=== PATIENT | male | born 1940 | race Caucasian/White ===

== ENCOUNTER 2017-08-30 23:40 | Emergency (ER) | payer OTHER ==
[~2017-08-30] VITALS: Ht 175.3 cm; Wt 71.3 kg
[2017-08-30 23:55] VITALS: BP 136/86; PULSE 65; RESP 16; TEMP 98; O2SAT 99
[2017-08-30 23:57] VITALS: O2SAT 98
[2017-08-31] MEDS ORDERED: SODIUM CHLORIDE 0.9% FLUSH 10 ML FLUSH IV FLUSH PRN
[2017-08-31] MEDS ORDERED: SODIUM CHLORID 0.9% 500 ML INJ 500 ML IV ONE
[2017-08-31] MEDS ORDERED: METO25TA3 PO (00:02)
[2017-08-31] MEDS ORDERED: LISI10TA3 PO (00:02)
[2017-08-31] MEDS ORDERED: CLOP75TA PO (00:02)
[2017-08-31] MEDS ORDERED: ATOR40TA16 PO (00:02)
[2017-08-31] MEDS ORDERED: PRAD150C PO (00:02)
[2017-08-31] MEDS ORDERED: FAMO20TA2 PO (00:02)
[2017-08-31] MEDS ORDERED: ASPI81CH6 CHEW (00:02)
[2017-08-31 00:16] LABS: AUTOMATED NEUTROPHIL # 5.9 TH/MM3 (1.8-7.7); BASOPHIL # 0.1 TH/MM3 (0-0.2); BASOPHIL % 1.1 % (0.0-2.0); EOSINOPHIL # 0.2 TH/MM3 (0-0.4); EOSINOPHIL % 2.7 % (0.0-4.0); HEMATOCRIT 37.6 % (39.0-51.0); HEMO FLAGS DIFF FINAL; LYMPH % 14.3 % (9.0-44.0); LYMPHOCYTE # 1.2 TH/MM3 (1.0-4.8); MEAN CELL VOLUME 96.2 FL (80.0-100.0); MEAN CORPUSCULAR HEMOGLOBIN 32.6 PG (27.0-34.0); MEAN CORPUSCULAR HGB CONC 33.9 % (32.0-36.0); MONO % 9.3 % (0.0-8.0); NEUT % 72.6 % (16.0-70.0); PLATELET COUNT 175 TH/MM3 (150-450); RED BLOOD COUNT 3.91 MIL/MM3 (4.50-5.90); RED CELL DISTRIBUTION WIDTH 14.3 % (11.6-17.2); WHITE BLOOD COUNT 8.1 TH/MM3 (4.0-11.0)
[2017-08-31 00:40] LABS: ALT (GPT) 45 U/L (12-78); ANION GAP 11 MEQ/L (5-15); AST (GOT) 37 U/L (15-37); BICARBONATE 23.4 MEQ/L (21.0-32.0); BLOOD UREA NITROGEN 22 MG/DL (7-18); CHLORIDE 109 MEQ/L (98-107); GLOMERULAR FILTRATION RATE 36 ML/MIN (>89); POTASSIUM 3.8 MEQ/L (3.5-5.1); SODIUM (NA) 143 MEQ/L (136-145)
[2017-08-31 00:42] LABS: ALKALINE PHOSPHATASE 130 U/L (45-117)
[2017-08-31 00:45] LABS: APTT (PATIENT) 30.3 SEC (24.3-30.1); PROTHROMBIN TIME - PATIENT 11.1 SEC (9.8-11.6)
[2017-08-31 00:46] LABS: TOTAL BILIRUBIN ADULT 0.3 MG/DL (0.2-1.0)
--- NOTE | 2017-08-31 01:26 | RADRPT ---
EXAM DATE/TIME: 08/31/2017 01:07 [place] COMPARISON: No previous studies available for comparison. INDICATIONS : Bilateral lower abdominal pain. ORAL CONTRAST: No oral contrast ingested. RADIATION DOSE: 6.22 CTDIvol (mGy) MEDICAL HISTORY : Carcinoma, prostate. Renal insufficiency. Cardiovascular disease SURGICAL HISTORY : Abdominal aortic aneurysm repair. Pacemaker. ENCOUNTER: Initial ACUITY: 1 day PAIN SCALE: 7/10 LOCATION: Bilateral lower quadrant abdomen TECHNIQUE: Volumetric scanning of the abdomen and pelvis was performed. Using automated exposure control and ad justment of the mA and/or kV according to patient size, radiation dose was kept as low as reasonably achievable to obtain optimal diagnostic quality images. DICOM format image data is available electro nically for review and comparison. FINDINGS: LOWER LUNGS: The visualized lower lungs are clear. LIVER: Homogeneous density without lesion. There is no dilation of the biliary tree. No calcified gallston es. The gallbladder is small and contracted. SPLEEN: Normal size without lesion. PANCREAS: Within normal limits. KIDNEYS: The left kidney is normal in size with cortical atrophy involving the lower pole. The right kidney is small and atrophic in appearance. ADRENAL GLANDS: Within normal limits. VASCULAR: Status post abdominal aortic aneurysm repair with stent graft in place. No IV contrast was given limi ting the visualization. BOWEL/MESENTERY: No oral contrast was given limiting the sensitivity of the exam. There is a nonobstructive bowel gas pattern with no free air or fluid. ABDOMINAL WALL: Within normal limits. RETROPERITONEUM: There is no lymphadenopathy. BLADDER: No wall thickening or mass. REPRODUCTIVE: Within normal limits. INGUINAL: There is no lymphadenopathy or hernia. MUSCULOSKELETAL: Within normal limits for patient age. CONCLUSION: 1. Nonobstructive bowel gas pattern. Visualization is suboptimal secondary to lack of oral contrast. 2. Small atrophic right kidney. 3. Cortical atrophy involving the lower pole of the left kidney. 4. Status post abdominal aortic aneurysm repair with stent graft in place. 5. The gallbladder is small and contracted with no calcified gallstones. Faheem Crews MD on August 31, 2017 at 1:17 Board Certified Radiologist. This report was verified electronically.
[2017-08-31 01:51] VITALS: BP 144/82; PULSE 73; RESP 16; O2SAT 97
[2017-08-31 03:06] LABS: BLOOD, URINE TRACE (NEG); GLUCOSE,URINE NEG (NEG); HYALINE CAST, URINE 3 /lpf (RARE); KETONE, URINE NEG (NEG); MUCUS URINE FEW /lpf (OCC); NITRITE,URINE NEG (NEG); PH, URINE 5.5 (5.0-8.5); URINE COLOR YELLOW (YELLW/STRAW)
[2017-08-31 03:07] LABS: COMMENT (UR) CULT NOT INDICATED; CULTURE IF INDICATED CULT NOT INDICATED
--- NOTE | 2017-08-31 03:56 | PD ---
HPI Chief Complaint: GI Complaint Time Seen by Provider: 23:55 Travel History International Travel<30 days: No Contact w/Intl Traveler<30days: No Traveled to known affect area: No History of Present Illness HPI Patient is a 77-year-old male comes in complaining of diarrhea. He says he often has diarrhea, for the past several years, however today he has had issues with incontinence. He has been trying to get housing with the [employer], but this has not been working out for him. He missed the bus to the [employer] today. He says he has some lower abdominal pain. He denies nausea or vomiting. He denies fever or chills. He denies any blood in his stool. He denies any recent antibiotics. PFSH Past Medical History Atrial Fibrillation: Yes Cancer: Yes (prostate) High Cholesterol: Yes Chest Pain: Yes (unstable angina) Cerebrovascular Accident: Yes Hypertension: Yes Medical other: Yes (chronic kidney disease) Past Surgical History Pacemaker: Yes Social History Alcohol Use: No Tobacco Use: Yes (1/2 ppd) Substance Use: No Allergies-Medications (Allergen,Severity, Reaction): Coded Allergies: Poultry (Verified Adverse Reaction, Unknown, Cramping, 08/30/17) Fainting egg (Verified Adverse Reaction, Unknown, cramping, 08/30/17) fainting Reported Meds & Prescriptions Reported Meds & Active Scripts Active Reported Atorvastatin (Atorvastatin Calcium) 40 Mg Tab 40 Mg PO HS Aspirin Low Dose (Aspirin) 81 Mg Chew 81 Mg CHEW DAILY Metoprolol Tartrate 25 Mg Tab 25 Mg PO BID Lisinopril 10 Mg Tab 10 Mg PO DAILY Clopidogrel (Clopidogrel Bisulfate) 75 Mg Tab 75 Mg PO DAILY Famotidine 20 Mg Tab 20 Mg PO BID Pradaxa (Dabigatran) 150 Mg Cap 150 Mg PO BID Review of Systems Except as stated in HPI: all other systems reviewed are Neg General / Constitutional: No: Fever, Chills HENT: No: Headaches, Lightheadedness Cardiovascular: No: Chest Pain or Discomfort Respiratory: No: Shortness of Breath Gastrointestinal: Positive: Diarrhea, Abdominal Pain, No: Nausea, Vomiting Genitourinary: No: Dysuria, Flank Pain Musculoskeletal: No: Myalgias, Edema Skin: No Rash, No Change in Pigmentation Neurologic: No: Weakness, Dizziness Physical Exam Narrative GENERAL: Awake and alert, in no acute distress. SKIN: Focused skin assessment warm/dry. HEAD: Atraumatic. Normocephalic. EYES: Pupils equal and round. No scleral icterus. ENT: Mucous membranes pink and moist. NECK: Trachea midline. No JVD. CARDIOVASCULAR: Regular rate and rhythm. No murmur appreciated. RESPIRATORY: No accessory muscle use. Clear to auscultation. Breath sounds equal bilaterally. GASTROINTESTINAL: Abdomen soft, nondistended. Mild tenderness to palpation across the lower abdomen, no rebound or guarding. MUSCULOSKELETAL: No obvious deformities. No clubbing. No cyanosis. No edema. NEUROLOGICAL: Awake and alert. No obvious cranial nerve deficits. Motor grossly within normal limits. Normal speech. PSYCHIATRIC: Appropriate mood and affect; insight and judgment normal. Data Data Last Documented VS Vital Signs Date Time Temp Pulse Resp B/P (MAP) Pulse Ox O2 Delivery O2 Flow Rate FiO2 08/31/17 01:51 73 16 144/82 (102) 97 Room Air 08/30/17 23:55 98.0 Orders Orders Complete Blood Count With Diff (08/30/17 23:55) Comprehensive Metabolic Panel (08/30/17 23:55) Lipase (08/30/17 23:55) Prothrombin Time / Inr (Pt) (08/30/17 23:55) Act Partial Throm Time (Ptt) (08/30/17 23:55) Urinalysis - C+S If Indicated (08/30/17 23:55) Iv Access Insert/Monitor (08/30/17 23:55) Ecg Monitoring (08/30/17 23:55) Oximetry (08/30/17 23:55) Sodium Chloride 0.9% Flush (Ns Flush) (08/31/17 00:00) Sodium Chlorid 0.9% 500 Ml Inj (Ns 500 M (08/31/17 00:00) Ct Abd/Pel W/O Iv Contrast (08/31/17 ) Labs Laboratory Tests Test 08/31/17 00:05 08/31/17 02:48 White Blood Count 8.1 TH/MM3 Red Blood Count 3.91 MIL/MM3 Hemoglobin 12.8 GM/DL Hematocrit 37.6 % Mean Corpuscular Volume 96.2 FL Mean Corpuscular Hemoglobin 32.6 PG Mean Corpuscular Hemoglobin Concent 33.9 % Red Cell Distribution Width 14.3 % Platelet Count 175 TH/MM3 Mean Platelet Volume 9.0 FL Neutrophils (%) (Auto) 72.6 % Lymphocytes (%) (Auto) 14.3 % Monocytes (%) (Auto) 9.3 % Eosinophils (%) (Auto) 2.7 % Basophils (%) (Auto) 1.1 % Neutrophils # (Auto) 5.9 TH/MM3 Lymphocytes # (Auto) 1.2 TH/MM3 Monocytes # (Auto) 0.8 TH/MM3 Eosinophils # (Auto) 0.2 TH/MM3 Basophils # (Auto) 0.1 TH/MM3 CBC Comment DIFF FINAL Differential Comment Prothrombin Time 11.1 SEC Prothromb Time International Ratio 1.0 RATIO Activated Partial Thromboplast Time 30.3 SEC Blood Urea Nitrogen 22 MG/DL Creatinine 1.81 MG/DL Random Glucose 101 MG/DL Total Protein 7.4 GM/DL Albumin 3.9 GM/DL Calcium Level 9.1 MG/DL Alkaline Phosphatase 130 U/L Aspartate Amino Transf (AST/SGOT) 37 U/L Alanine Aminotransferase (ALT/SGPT) 45 U/L Total Bilirubin 0.3 MG/DL Sodium Level 143 MEQ/L Potassium Level 3.8 MEQ/L Chloride Level 109 MEQ/L Carbon Dioxide Level 23.4 MEQ/L Anion Gap 11 MEQ/L Estimat Glomerular Filtration Rate 36 ML/MIN Lipase 231 U/L Urine Color YELLOW Urine Turbidity CLEAR Urine pH 5.5 Urine Specific [place] 1.019 Urine Protein TRACE mg/dL Urine Glucose (UA) NEG mg/dL Urine Ketones NEG mg/dL Urine Occult Blood TRACE Urine Nitrite NEG Urine Bilirubin NEG Urine Urobilinogen LESS THAN 2.0 MG/DL Urine Leukocyte Esterase NEG Urine RBC 13 /hpf Urine WBC 1 /hpf Urine Hyaline Casts 3 /lpf Urine Mucus FEW /lpf Microscopic Urinalysis Comment CULT NOT INDICATED MDM Medical Decision Making Medical Screen Exam Complete: Yes Emergency Medical Condition: Yes Differential Diagnosis Colitis versus diverticulitis versus electrolyte abnormality versus UTI Narrative Course Patient is a 77-year-old male comes in complaining of diarrhea. Exam shows mild lower abdominal tenderness. IV established, labs sent. Labs show an elevated creatinine, however this is consistent with his history of CK ED stage III. CT abdomen and pelvis performed show no acute abnormalities. Patient is sleeping comfortably. He is advised drink plenty of fluids. [facility] Advised to return to the ED as needed for any worsening symptoms. Diagnosis Primary Impression: Diarrhea Qualified Codes: R19.7 - Diarrhea, unspecified Patient Instructions: Acute Diarrhea (ED), General Instructions Additional Instructions: Drink plenty of fluids. [facility] Return to the ED as needed for any worsening symptoms. Disposition: 01 DISCHARGE HOME Condition: Stable Edilia Mercado MD Aug 31, 2017 03:56
== END 2017-08-31 06:57 | disposition home or self-care (01) ==
LOC: NEPE 23:40
DX: R19.7 Diarrhea, unspecified (principal); R32 Unspecified urinary incontinence; I48.91 Unspecified atrial fibrillation; I10 Essential (primary) hypertension; Z72.0 Tobacco use
CPT/HCPCS: 74176; 80053; 81001; 83690; 85025; 85610; 85730; 96360; 99285; J7040

== ENCOUNTER 2017-09-20 10:48 | Emergency (ER) | payer OTHER ==
[~2017-09-20 10:48] MED LIST: ASPI81CH6 CHEW; ATOR40TA16 PO; CLOP75TA PO; FAMO20TA2 PO; LISI10TA3 PO; METO25TA3 PO; PRAD150C PO
[2017-09-20 10:50] VITALS: BP 133/85; PULSE 131; RESP 20; TEMP 97.4; O2SAT 99
[2017-09-20] MEDS ORDERED: PLAV75TA29 PO (11:19)
--- NOTE | 2017-09-20 11:41 | PD ---
HPI Chief Complaint: Syncope/Near-Syncope Time Seen by Provider: 11:15 Travel History International Travel<30 days: No Contact w/Intl Traveler<30days: No Traveled to known affect area: No History of Present Illness HPI 77-year-old male presents to the emergency department with complaint of having an episode of feeling lightheaded and dizzy last night and this morning. He has history of vertigo and usually takes meclizine but he doesn't have his prescription secondary to just getting out of skilled nursing and then keeping his meds. He denies chest pain. Has history of COPD and complains of shortness of breath for many years that is unchanged. Denies fevers, vomiting, abdominal pain. Reports recent cold symptoms to include nasal congestion, patient states he is getting better. Has not taken any medications or tried any treatments to alleviate symptoms. Symptoms are mild in severity. No known relieving or aggravating factors. Cardiac history including pacemaker, A. fib, CVA, AAA, HTN. Medical history to include prostate cancer, vertigo, COPD, hypertension, PTSD, stage 3 kidney disease. His primary care provider is Dr. Chowdhury at the [place] [facility] and has an appointment next . Allergies to poultry and egg. Has no other medical complaints. No other modifying factors or associated signs and symptoms. PFSH Past Medical History Hx Anticoagulant Therapy: Yes Atrial Fibrillation: Yes Cancer: Yes (prostate) Cardiac Catheterization: Yes Cardiovascular Problems: Yes High Cholesterol: Yes Chest Pain: Yes (unstable angina) COPD: Yes Cerebrovascular Accident: Yes Diminished Hearing: No Hypertension: Yes Psychiatric: Yes (PTSD) Tetanus Vaccination: < 5 Years Influenza Vaccination: No Past Surgical History Cardiac Surgery: Yes (PACEMAKER, 3 STENTS) Pacemaker: Yes Prostatectomy: Yes Social History Alcohol Use: No Tobacco Use: Yes (1/2 ppd) Substance Use: No Allergies-Medications (Allergen,Severity, Reaction): Coded Allergies: Poultry (Verified Adverse Reaction, Unknown, Cramping, 08/30/17) Fainting egg (Verified Adverse Reaction, Unknown, cramping, 08/30/17) fainting Reported Meds & Prescriptions Reported Meds & Active Scripts Active Meclizine (Meclizine HCl) 25 Mg Tab 25 Mg PO DIRECTED PRN Reported Plavix (Clopidogrel Bisulfate) 75 Mg Tab 75 Mg PO DAILY Atorvastatin (Atorvastatin Calcium) 40 Mg Tab 40 Mg PO HS Aspirin Low Dose (Aspirin) 81 Mg Chew 81 Mg CHEW DAILY Metoprolol Tartrate 25 Mg Tab 25 Mg PO BID Lisinopril 10 Mg Tab 10 Mg PO DAILY Famotidine 20 Mg Tab 20 Mg PO BID Review of Systems Except as stated in HPI: all other systems reviewed are Neg Physical Exam Narrative GENERAL: Well-nourished, well-developed male patient, in no acute distress SKIN: Warm and dry. HEAD: Atraumatic. Normocephalic. EYES: Pupils equal and round. No scleral icterus. No injection or drainage. ENT: Mucosa pink and moist. Airway patent. NECK: Trachea midline. CARDIOVASCULAR: Regular rate and rhythm in 70's. No murmur appreciated. RESPIRATORY: No accessory muscle use. Breath sounds clear and equal bilaterally. No retractions or tachypnea. No wheezing on auscultation or audible wheezing. GASTROINTESTINAL: Abdomen soft, non-tender, nondistended. Positive bowel sounds. No hepato-splenomegaly, or palpable masses. No guarding. MUSCULOSKELETAL: No obvious deformities. No clubbing. No cyanosis. No edema. NEUROLOGICAL: Awake and alert. Oriented 3. No obvious cranial nerve deficits. Motor grossly within normal limits. Normal speech. PSYCHIATRIC: Appropriate mood and affect; insight and judgment normal. Data Data Last Documented VS Vital Signs Date Time Temp Pulse Resp B/P (MAP) Pulse Ox O2 Delivery O2 Flow Rate FiO2 09/20/17 11:20 75 16 99 Room Air 09/20/17 10:50 97.4 133/85 (101) Orders Orders Basic Metabolic Panel (Bmp) (09/20/17 11:37) Complete Blood Count With Diff (09/20/17 11:37) Ecg Monitoring (09/20/17 11:37) Iv Access Insert/Monitor (09/20/17 11:37) Oximetry (09/20/17 11:37) Sodium Chloride 0.9% Flush (Ns Flush) (09/20/17 11:45) Meclizine (Antivert) (09/20/17 11:45) Ed Discharge Order (09/20/17 12:40) Labs Laboratory Tests Test 09/20/17 11:40 White Blood Count 8.6 TH/MM3 Red Blood Count 3.91 MIL/MM3 Hemoglobin 12.6 GM/DL Hematocrit 37.6 % Mean Corpuscular Volume 96.2 FL Mean Corpuscular Hemoglobin 32.2 PG Mean Corpuscular Hemoglobin Concent 33.5 % Red Cell Distribution Width 14.2 % Platelet Count 186 TH/MM3 Mean Platelet Volume 9.0 FL Neutrophils (%) (Auto) 79.5 % Lymphocytes (%) (Auto) 11.1 % Monocytes (%) (Auto) 7.1 % Eosinophils (%) (Auto) 1.6 % Basophils (%) (Auto) 0.7 % Neutrophils # (Auto) 6.8 TH/MM3 Lymphocytes # (Auto) 1.0 TH/MM3 Monocytes # (Auto) 0.6 TH/MM3 Eosinophils # (Auto) 0.1 TH/MM3 Basophils # (Auto) 0.1 TH/MM3 CBC Comment DIFF FINAL Differential Comment Blood Urea Nitrogen 16 MG/DL Creatinine 1.53 MG/DL Random Glucose 108 MG/DL Calcium Level 8.6 MG/DL Sodium Level 144 MEQ/L Potassium Level 4.3 MEQ/L Chloride Level 112 MEQ/L Carbon Dioxide Level 24.7 MEQ/L Anion Gap 7 MEQ/L Estimat Glomerular Filtration Rate 44 ML/MIN MDM Medical Decision Making Medical Screen Exam Complete: Yes Emergency Medical Condition: Yes Medical Record Reviewed: Yes Differential Diagnosis Vertigo, electrolyte imbalance, anemia, cardiac arrhythmia Narrative Course 77-year-old male with an episode of lightheadedness and dizziness last night and then this morning. He has history of vertigo typically takes meclizine but does not have the medication secondary to just being released from skilled nursing and then keeping his med. He denies chest pain or shortness of breath. I discussed the patient with my attending physician, Dr. Shoemaker, and she agrees with the plan of care. She'll placed on cardiopulmonary monitor. CBC, BMP, EKG ordered. 1140: EKG with sinus tachycardia with first-degree AV block; no ST elevation or depression; reviewed by Dr. Shoemaker. 1234: CBC unremarkable. Creatinine 1.53, GFR 44, otherwise BMP unremarkable. I discussed discharge with Dr. Shoemaker and she agrees. Meclizine prescribed for home. Instructed patient to follow up with primary care provider. Patient verbalizes understanding and agreement with treatment plan. Patient is medically cleared and stable for discharge. Discussed reasons to return to the emergency department. Patient agrees with treatment plan. The patients vital signs are stable and the patient is stable for outpatient follow- up and treatment. Patient discharged home, stable and in no acute distress. Diagnosis Primary Impression: Vertigo Referrals: Primary Care Physician Patient Instructions: Benign Paroxysmal Positional Vertigo (ED), General Instructions, Vertigo (ED) Additional Instructions: Meclizine as prescribed Avoid aggravating activities Follow-up with primary care provider Return to the emergency department immediately with worsening of symptoms Med/Other Pt SpecificInfo: Prescription(s) given Scripts Meclizine (Meclizine) 25 Mg Tab 25 MG PO DIRECTED Y for VERTIGO, #20 TAB 0 Refills Prov: Marcie Bell 09/20/17 Disposition: 01 DISCHARGE HOME Condition: Stable Marcie Bell Sep 20, 2017 11:41
[2017-09-20] MEDS ORDERED: MECLIZINE HCL 25 MG TAB PO ONE (11:45)
[2017-09-20] MEDS ORDERED: SODIUM CHLORIDE 0.9% FLUSH 10 ML FLUSH IVF PRN (11:45)
[2017-09-20 12:04] LABS: AUTOMATED NEUTROPHIL # 6.8 TH/MM3 (1.8-7.7); BASOPHIL # 0.1 TH/MM3 (0-0.2); BASOPHIL % 0.7 % (0.0-2.0); EOSINOPHIL # 0.1 TH/MM3 (0-0.4); EOSINOPHIL % 1.6 % (0.0-4.0); HEMATOCRIT 37.6 % (39.0-51.0); HEMO FLAGS DIFF FINAL; LYMPH % 11.1 % (9.0-44.0); MEAN CELL VOLUME 96.2 FL (80.0-100.0); MEAN CORPUSCULAR HEMOGLOBIN 32.2 PG (27.0-34.0); MEAN CORPUSCULAR HGB CONC 33.5 % (32.0-36.0); MONO % 7.1 % (0.0-8.0); NEUT % 79.5 % (16.0-70.0); PLATELET COUNT 186 TH/MM3 (150-450); RED BLOOD COUNT 3.91 MIL/MM3 (4.50-5.90); RED CELL DISTRIBUTION WIDTH 14.2 % (11.6-17.2); WHITE BLOOD COUNT 8.6 TH/MM3 (4.0-11.0)
[2017-09-20 12:21] LABS: BICARBONATE 24.7 MEQ/L (21.0-32.0)
[2017-09-20 12:22] LABS: POTASSIUM 4.3 MEQ/L (3.5-5.1)
[2017-09-20] MEDS ORDERED: MECL-62 PO (12:38)
[2017-09-20 12:47] VITALS: BP_SYST 120; BP_SYST 125; BP_DIAS 82; BP_DIAS 86; PULSE 73
--- NOTE | 2017-09-21 09:28 | EKG ---
Date Performed: 09/20/2017 Time Performed: 11:09:54 PTAGE: 77 years EKG: Supraventricular tachycardia ABNORMAL ECG NO PREVIOUS TRACING DOCTOR: Bentley Delaney Interpretating Date/Time 09/21/2017 09:26:21
== END 2017-09-20 12:49 | disposition home or self-care (01) ==
LOC: NEPC 10:48
DX: R42 Dizziness and giddiness (principal); I48.91 Unspecified atrial fibrillation; E78.00 Pure hypercholesterolemia, unspecified; J44.9 Chronic obstructive pulmonary disease, unspecified; I10 Essential (primary) hypertension; Z72.0 Tobacco use; Z79.01 Long term (current) use of anticoagulants
CPT/HCPCS: 80048; 85025; 93005; 99283

== ENCOUNTER 2018-01-16 13:09 | Emergency (ER) | payer OTHER ==
[~2018-01-16] VITALS: Ht 175.3 cm; Wt 70.0 kg
[~2018-01-16 13:09] MED LIST changes: -CLOP75TA PO; +MECL-62 PO; +PLAV75TA29 PO; -PRAD150C PO
[2018-01-16 13:12] VITALS: BP 124/81; PULSE 108; RESP 18; TEMP 98; O2SAT 100
[2018-01-16 13:21] VITALS: O2SAT 97
--- NOTE | 2018-01-16 13:22 | PD ---
HPI Chief Complaint: Dizziness Time Seen by Provider: 13:18 Travel History International Travel<30 days: No Contact w/Intl Traveler<30days: No Traveled to known affect area: No History of Present Illness HPI The patient is a 77-year-old male who presents to the emergency department via EMS for dizziness. The patient states he has a history of chronic dizziness, for the last several months, normally takes meclizine. However, the patient ran out of his meclizine several weeks ago and notes the dizziness has progressed. The patient describes the dizziness as being off balance, no difficulty walking, but worse inserted and all changes such as bending over. He denies any vertigo symptoms of the room spinning, denies any focal deficits. He does have a history of previous CVA and thinks he had medications changed from Eliquis to Plavix. The patient denies any chest pain, shortness of breath, nausea, vomiting, palpitations, or presyncopal symptoms. He denies any acute focal deficits, however, states he is undergoing rehab for right leg difficulties after his previous CVA. However, he states that is not acute. Symptoms are moderate. PFSH Past Medical History Hx Anticoagulant Therapy: Yes Atrial Fibrillation: Yes Cancer: Yes (prostate) Cardiac Catheterization: Yes Cardiovascular Problems: Yes High Cholesterol: Yes Chest Pain: Yes (unstable angina) COPD: Yes Cerebrovascular Accident: Yes Diminished Hearing: No Hypertension: Yes Psychiatric: Yes (PTSD) Past Surgical History Cardiac Surgery: Yes (PACEMAKER, 3 STENTS) Pacemaker: Yes Prostatectomy: Yes Social History Alcohol Use: No Tobacco Use: Yes (1/2 ppd) Substance Use: No Allergies-Medications (Allergen,Severity, Reaction): Coded Allergies: Poultry (Verified Adverse Reaction, Unknown, Cramping, 08/30/17) Fainting egg (Verified Adverse Reaction, Unknown, cramping, 08/30/17) fainting Reported Meds & Prescriptions Reported Meds & Active Scripts Active Meclizine (Meclizine HCl) 25 Mg Tab 25 Mg PO DIRECTED PRN Reported Plavix (Clopidogrel Bisulfate) 75 Mg Tab 75 Mg PO DAILY Atorvastatin (Atorvastatin Calcium) 40 Mg Tab 40 Mg PO HS Aspirin Low Dose (Aspirin) 81 Mg Chew 81 Mg CHEW DAILY Metoprolol Tartrate 25 Mg Tab 25 Mg PO BID Lisinopril 10 Mg Tab 10 Mg PO DAILY Famotidine 20 Mg Tab 20 Mg PO BID Review of Systems Except as stated in HPI: all other systems reviewed are Neg HENT: Positive: Lightheadedness, No: Headaches, Vertigo Cardiovascular: Positive: Irregular Rhythm, Tachycardia, No: Chest Pain or Discomfort, Palpitations, Diaphoresis, Syncope Respiratory: No: Shortness of Breath Gastrointestinal: No: Nausea, Vomiting, Abdominal Pain Neurologic: Positive: Dizziness, No: Focal Abnormalities, Headache, Change in Mentation, Paresthesia, Sensory Disturbance Physical Exam Narrative GENERAL: Awake, alert, pleasant 77-year-old male who appears his stated age and is in no acute respiratory distress. SKIN: Focused skin assessment warm/dry. HEAD: Atraumatic. Normocephalic. EYES: Pupils equal and round. No scleral icterus. No injection or drainage. ENT: No nasal bleeding or discharge. Mucous membranes pink and moist. NECK: Trachea midline. No JVD. CARDIOVASCULAR: Irregularly irregular, tachycardic with a heart rate of 110. RESPIRATORY: No accessory muscle use. Clear to auscultation. Breath sounds equal bilaterally. GASTROINTESTINAL: Abdomen soft, non-tender, nondistended. No rebound tenderness. Well-healed midline scar. MUSCULOSKELETAL: No obvious deformities. No clubbing. No cyanosis. No edema. NEUROLOGICAL: Awake and alert. No obvious cranial nerve deficits. Motor grossly within normal limits. Normal speech. Nonfocal. PSYCHIATRIC: Appropriate mood and affect; insight and judgment normal. Data Data Last Documented VS Vital Signs Date Time Temp Pulse Resp B/P (MAP) Pulse Ox O2 Delivery O2 Flow Rate FiO2 01/16/18 14:51 76 18 103/59 (74) 100 Room Air 01/16/18 13:12 98.0 Orders Orders Electrocardiogram (01/16/18 13:18) Complete Blood Count With Diff (01/16/18 13:18) Comprehensive Metabolic Panel (01/16/18 13:18) Magnesium (Mg) (01/16/18 13:18) Ckmb (Isoenzyme) Profile (01/16/18 13:18) Troponin I (01/16/18 13:18) Act Partial Throm Time (Ptt) (01/16/18 13:18) Prothrombin Time / Inr (Pt) (01/16/18 13:18) Urinalysis - C+S If Indicated (01/16/18 13:18) Ct Brain W/O Iv Contrast(Rout) (01/16/18 13:18) Ecg Monitoring (01/16/18 13:18) Iv Access Insert/Monitor (01/16/18 13:18) Oximetry (01/16/18 13:18) Meclizine (Antivert) (01/16/18 13:30) Sodium Chloride 0.9% Flush (Ns Flush) (01/16/18 13:30) Orthostatic Vital Signs (01/16/18 13:18) Sodium Chlorid 0.9% 500 Ml Inj (Ns 500 M (01/16/18 13:30) Ed Discharge Order (01/16/18 16:53) Labs Laboratory Tests Test 01/16/18 13:30 White Blood Count 8.7 TH/MM3 Red Blood Count 4.65 MIL/MM3 Hemoglobin 15.0 GM/DL Hematocrit 43.8 % Mean Corpuscular Volume 94.2 FL Mean Corpuscular Hemoglobin 32.2 PG Mean Corpuscular Hemoglobin Concent 34.2 % Red Cell Distribution Width 14.9 % Platelet Count 193 TH/MM3 Mean Platelet Volume 9.1 FL Neutrophils (%) (Auto) 83.5 % Lymphocytes (%) (Auto) 9.0 % Monocytes (%) (Auto) 5.2 % Eosinophils (%) (Auto) 1.5 % Basophils (%) (Auto) 0.8 % Neutrophils # (Auto) 7.3 TH/MM3 Lymphocytes # (Auto) 0.8 TH/MM3 Monocytes # (Auto) 0.5 TH/MM3 Eosinophils # (Auto) 0.1 TH/MM3 Basophils # (Auto) 0.1 TH/MM3 CBC Comment DIFF FINAL Differential Comment Prothrombin Time 10.6 SEC Prothromb Time International Ratio 1.0 RATIO Activated Partial Thromboplast Time 27.3 SEC Blood Urea Nitrogen 27 MG/DL Creatinine 1.77 MG/DL Random Glucose 180 MG/DL Total Protein 7.9 GM/DL Albumin 3.9 GM/DL Calcium Level 9.1 MG/DL Magnesium Level 1.8 MG/DL Alkaline Phosphatase 133 U/L Aspartate Amino Transf (AST/SGOT) 20 U/L Alanine Aminotransferase (ALT/SGPT) 20 U/L Total Bilirubin 0.4 MG/DL Sodium Level 141 MEQ/L Potassium Level 4.1 MEQ/L Chloride Level 110 MEQ/L Carbon Dioxide Level 23.5 MEQ/L Anion Gap 8 MEQ/L Estimat Glomerular Filtration Rate 37 ML/MIN Total Creatine Kinase 70 U/L Troponin I LESS THAN 0.02 NG/ML MDM Medical Decision Making Medical Screen Exam Complete: Yes Emergency Medical Condition: Yes Medical Record Reviewed: Yes Interpretation(s) EKG reveals electronic atrial pacemaker with PVC every fourth beat. Nonspecific T-wave changes. Last Impressions Head CT 01/16/18 1318 Signed Impressions: Service Date/Time: January 13:54 - CONCLUSION: 1. Old lacunar infarct involving the head of the left caudate nucleus. 2. Mild periventricular and subcortical white matter small vessel ischemic changes bilaterally. 3. No acute infarct, acute hemorrhage, midline shift or extra-axial fluid collections. Osvaldo Nina MD Laboratory Tests Test 01/16/18 13:30 White Blood Count 8.7 TH/MM3 Red Blood Count 4.65 MIL/MM3 Hemoglobin 15.0 GM/DL Hematocrit 43.8 % Mean Corpuscular Volume 94.2 FL Mean Corpuscular Hemoglobin 32.2 PG Mean Corpuscular Hemoglobin Concent 34.2 % Red Cell Distribution Width 14.9 % Platelet Count 193 TH/MM3 Mean Platelet Volume 9.1 FL Neutrophils (%) (Auto) 83.5 % Lymphocytes (%) (Auto) 9.0 % Monocytes (%) (Auto) 5.2 % Eosinophils (%) (Auto) 1.5 % Basophils (%) (Auto) 0.8 % Neutrophils # (Auto) 7.3 TH/MM3 Lymphocytes # (Auto) 0.8 TH/MM3 Monocytes # (Auto) 0.5 TH/MM3 Eosinophils # (Auto) 0.1 TH/MM3 Basophils # (Auto) 0.1 TH/MM3 CBC Comment DIFF FINAL Differential Comment Prothrombin Time 10.6 SEC Prothromb Time International Ratio 1.0 RATIO Activated Partial Thromboplast Time 27.3 SEC Blood Urea Nitrogen 27 MG/DL Creatinine 1.77 MG/DL Random Glucose 180 MG/DL Total Protein 7.9 GM/DL Albumin 3.9 GM/DL Calcium Level 9.1 MG/DL Magnesium Level 1.8 MG/DL Alkaline Phosphatase 133 U/L Aspartate Amino Transf (AST/SGOT) 20 U/L Alanine Aminotransferase (ALT/SGPT) 20 U/L Total Bilirubin 0.4 MG/DL Sodium Level 141 MEQ/L Potassium Level 4.1 MEQ/L Chloride Level 110 MEQ/L Carbon Dioxide Level 23.5 MEQ/L Anion Gap 8 MEQ/L Estimat Glomerular Filtration Rate 37 ML/MIN Total Creatine Kinase 70 U/L Troponin I LESS THAN 0.02 NG/ML Differential Diagnosis Differential diagnosis includes A. fib with RVR, vertigo, cerebellar infarct, hyponatremia, arrhythmia, dehydration, orthostatic hypotension, Mnire's disease, metabolic derangement, benign positional vertigo. Narrative Course IV was established, labs are drawn and sent, and the patient was placed on cardiac telemetry monitoring and continuous pulse oximetry monitoring. Orthostatic vital signs were obtained. The patient was placed on IV fluids. Noncontrast CT of the brain was obtained. CT the brain reveals old lacunar infarct, nothing acute. Labs are unremarkable. The patient was reevaluated, symptoms had significantly improved. Patient was given a trial of ambulation, ambulated without difficulty and requested to be discharged home. I will refill his meclizine. He is advised to return if symptoms worsen or progress. Diagnosis Primary Impression: Dizziness Patient Instructions: General Instructions Additional Instructions: Please provide the patient a copy of his labs and CT results at discharge. Follow-up with your primary physician. Return if symptoms worsen or progress. Medication as directed. Med/Other Pt SpecificInfo: Prescription(s) given Scripts Meclizine (Meclizine) 25 Mg Tab 25 MG PO TID Y for VERTIGO, #15 TAB 0 Refills Prov: Arnold Hurtado MD 01/16/18 Disposition: 01 DISCHARGE HOME Condition: Stable Arnold Hurtado MD Jan 16, 2018 13:22
[2018-01-16] MEDS ORDERED: MECLIZINE HCL 25 MG TAB PO ONE (13:30)
[2018-01-16] MEDS ORDERED: SODIUM CHLORIDE 0.9% FLUSH 10 ML FLUSH IVF PRN (13:30)
[2018-01-16] MEDS ORDERED: SODIUM CHLORID 0.9% 500 ML INJ 500 ML IV ONE (13:30)
[2018-01-16 13:55] LABS: AUTOMATED NEUTROPHIL # 7.3 TH/MM3 (1.8-7.7); BASOPHIL # 0.1 TH/MM3 (0-0.2); BASOPHIL % 0.8 % (0.0-2.0); EOSINOPHIL # 0.1 TH/MM3 (0-0.4); EOSINOPHIL % 1.5 % (0.0-4.0); HEMATOCRIT 43.8 % (39.0-51.0); LYMPHOCYTE # 0.8 TH/MM3 (1.0-4.8); MEAN CELL VOLUME 94.2 FL (80.0-100.0); MEAN CORPUSCULAR HEMOGLOBIN 32.2 PG (27.0-34.0); MEAN CORPUSCULAR HGB CONC 34.2 % (32.0-36.0); MEAN PLATELET VOLUME 9.1 FL (7.0-11.0); MONO % 5.2 % (0.0-8.0); MONOCYTE # 0.5 TH/MM3 (0-0.9); NEUT % 83.5 % (16.0-70.0); PLATELET COUNT 193 TH/MM3 (150-450); RED BLOOD COUNT 4.65 MIL/MM3 (4.50-5.90); RED CELL DISTRIBUTION WIDTH 14.9 % (11.6-17.2); WHITE BLOOD COUNT 8.7 TH/MM3 (4.0-11.0)
[2018-01-16 14:06] LABS: PROTHROMBIN TIME - PATIENT 10.6 SEC (9.8-11.6)
[2018-01-16 14:16] LABS: ALBUMIN 3.9 GM/DL (3.4-5.0); ALT (GPT) 20 U/L (12-78); AST (GOT) 20 U/L (15-37); BICARBONATE 23.5 MEQ/L (21.0-32.0); BLOOD UREA NITROGEN 27 MG/DL (7-18); CALCIUM 9.1 MG/DL (8.5-10.1); CHLORIDE 110 MEQ/L (98-107); CREATININE 1.77 MG/DL (0.60-1.30); GLOMERULAR FILTRATION RATE 37 ML/MIN (>89); GLUCOSE,RANDOM 180 MG/DL (74-106); MAGNESIUM 1.8 MG/DL (1.5-2.5); SODIUM (NA) 141 MEQ/L (136-145)
--- NOTE | 2018-01-16 14:19 | RADRPT ---
EXAM DATE/TIME: 01/16/2018 13:54 [facility] COMPARISON: No previous studies available for comparison. INDICATIONS : Dizzy RADIATION DOSE: 39.91 CTDIvol (mGy) MEDICAL HISTORY : Carcinoma, prostate. Cerebrovascular disease. Cardiovascular disease COPD, SURGICAL HISTORY : Pacemaker. Prostatectomy. ENCOUNTER: Initial ACUITY: 1 day PAIN SCALE: 0/10 LOCATION: cranial TECHNIQUE: Multiple contiguous axial images were obtained of the head. Using automated exposure control and adj ustment of the mA and/or kV according to patient size, radiation dose was kept as low as reasonably a chievable to obtain optimal diagnostic quality images. DICOM format image data is available electro nically for review and comparison. FINDINGS: CEREBRUM: The ventricles are normal for age. No evidence of midline shift, mass lesion, hemorrhage or acute in farction. No extra-axial fluid collections are seen. Mild periventricular and subcortical white benson er small vessel ischemic changes are noted bilaterally. There is an old lacunar infarct involving the head of the left caudate nucleus. POSTERIOR FOSSA: The cerebellum and brainstem are intact. The 4th ventricle is midline. The cerebellopontine angle i s unremarkable. EXTRACRANIAL: The visualized portion of the orbits is intact. SKULL: The calvaria is intact. No evidence of skull fracture. CONCLUSION: 1. Old lacunar infarct involving the head of the left caudate nucleus. 2. Mild periventricular and subcortical white matter small vessel ischemic changes bilaterally. 3. No acute infarct, acute hemorrhage, midline shift or extra-axial fluid collections. Osvaldo Nina MD on January 16, 2018 at 14:12 Board Certified Radiologist. This report was verified electronically.
[2018-01-16 14:20] LABS: ALKALINE PHOSPHATASE 133 U/L (45-117); TOTAL BILIRUBIN ADULT 0.4 MG/DL (0.2-1.0); TOTAL PROTEIN 7.9 GM/DL (6.4-8.2); TROPONIN I LESS THAN 0.02 NG/ML (0.02-0.05)
[2018-01-16 14:35] VITALS: BP_SYST 120; BP_SYST 128; BP_SYST 137; BP_DIAS 64; BP_DIAS 77; BP_DIAS 79
[2018-01-16 14:51] VITALS: BP 103/59; PULSE 76; RESP 18; O2SAT 100
[2018-01-16 16:55] VITALS: BP 173/75; PULSE 75; RESP 17; O2SAT 100
[2018-01-16] MEDS ORDERED: MECL-62 PO (16:58)
--- NOTE | 2018-01-18 13:01 | EKG ---
Date Performed: 01/16/2018 Time Performed: 13:28:13 PTAGE: 77 years EKG: Predominant atrial demand pacing Ventricular premature complexes Nonspecific ST-T abnormali ties Pacing is new from prior tracing. ST-T abnormalities are similar. ABNORMAL RHYTHM ECG PREVIOUS TRACING : 09/20/2017 11.09.54 DOCTOR: Rojelio Schilling Interpretating Date/Time 01/18/2018 13:00:55
== END 2018-01-16 17:19 | disposition home or self-care (01) ==
LOC: NEPE 13:09
DX: R42 Dizziness and giddiness (principal); R94.31 Abnormal electrocardiogram [ECG] [EKG]; I10 Essential (primary) hypertension; E78.00 Pure hypercholesterolemia, unspecified; I48.91 Unspecified atrial fibrillation; J44.9 Chronic obstructive pulmonary disease, unspecified; F43.10 Post-traumatic stress disorder, unspecified; F17.210 Nicotine dependence, cigarettes, uncomplicated; Z85.46 Personal history of malignant neoplasm of prostate; Z86.73 Personal history of transient ischemic attack (TIA), and cerebral infarction without residual deficits; Z95.0 Presence of cardiac pacemaker; Z79.02 Long term (current) use of antithrombotics/antiplatelets; Z79.899 Other long term (current) drug therapy
CPT/HCPCS: 70450; 80053; 82550; 83735; 84484; 85025; 85610; 85730; 93005; 96360; 96361; 99285; J7040

== ENCOUNTER 2018-03-28 18:05 | Inpatient (IN) | payer MEDICARE, OTHER ==
[~2018-03-28] VITALS: Ht 175.3 cm; Wt 72.2 kg
[2018-03-28 18:10] VITALS: BP 187/112; PULSE 79; RESP 16; TEMP 97.7; O2SAT 98
[2018-03-28] MEDS ORDERED: SODIUM CHLOR 0.9% 1000 ML INJ 1,000 ML IV ONE (20:15)
[2018-03-28] MEDS ORDERED: MORPHINE SULFATE 4 MG/ML INJ IV PUSH ONE (20:15)
[2018-03-28] MEDS ORDERED: CLAR10CA3 PO (20:18)
[2018-03-28] MEDS ORDERED: LISI-515 PO (20:18)
[2018-03-28] MEDS ORDERED: PANT40TA3 PO (20:18)
--- NOTE | 2018-03-28 20:19 | PD ---
HPI Chief Complaint: GI Complaint Time Seen by Provider: 19:54 Travel History International Travel<30 days: No Contact w/Intl Traveler<30days: No Traveled to known affect area: No History of Present Illness HPI This is a 77-year-old male who presents to the emergency department with abdominal pain that has been going on since this morning, constant, moderate severity, described as a soreness all over his abdomen associated with nausea. Patient has a history of a bowel resection years ago in the setting of "infarcted bowel". He does have a history of atrial fibrillation. He takes Plavix. He denies any postprandial pain. He denies any fevers or chills. He has had black loose stools throughout the day. PFSH Past Medical History Hx Anticoagulant Therapy: Yes Atrial Fibrillation: Yes Cancer: Yes (prostate) Cardiac Catheterization: Yes Cardiovascular Problems: Yes High Cholesterol: Yes Chest Pain: Yes (unstable angina) COPD: Yes Cerebrovascular Accident: Yes Diabetes: No Patient Takes Glucophage: No Diminished Hearing: Yes Hypertension: Yes Psychiatric: Yes (PTSD) Immunizations Current: Yes Tetanus Vaccination: < 5 Years Past Surgical History Cardiac Surgery: Yes (PACEMAKER, 3 STENTS) Pacemaker: Yes Prostatectomy: Yes Social History Alcohol Use: No Tobacco Use: Yes (1 ppd) Substance Use: No Allergies-Medications (Allergen,Severity, Reaction): Coded Allergies: Poultry (Verified Adverse Reaction, Unknown, Cramping, 03/28/18) Fainting egg (Verified Adverse Reaction, Unknown, cramping, 03/28/18) fainting Reported Meds & Prescriptions Reported Meds & Active Scripts Active Meclizine (Meclizine HCl) 25 Mg Tab 25 Mg PO TID PRN Meclizine (Meclizine HCl) 25 Mg Tab 25 Mg PO DIRECTED PRN Reported Pantoprazole (Pantoprazole Sodium) 40 Mg Tab 40 Mg PO DAILY Claritin (Loratadine) 10 Mg Cap 10 Mg PO DAILY Lisinopril 20 Mg Tab 20 Mg PO DAILY Plavix (Clopidogrel Bisulfate) 75 Mg Tab 75 Mg PO DAILY Atorvastatin (Atorvastatin Calcium) 40 Mg Tab 40 Mg PO HS Aspirin Low Dose (Aspirin) 81 Mg Chew 81 Mg CHEW DAILY Metoprolol Tartrate 25 Mg Tab 25 Mg PO BID Lisinopril 10 Mg Tab 10 Mg PO DAILY Famotidine 20 Mg Tab 20 Mg PO BID Review of Systems Except as stated in HPI: all other systems reviewed are Neg Physical Exam Narrative GENERAL:Well appearing, no acute distress SKIN: Focused skin assessment warm and dry. HEAD: Atraumatic. Normocephalic. EYES: Pupils equal and round. No injection or drainage. ENT: Moist mucous membranes NECK: Trachea midline. CARDIOVASCULAR: Regular rate and rhythm. No murmur appreciated. RESPIRATORY: Clear to auscultation. Breath sounds equal bilaterally. GASTROINTESTINAL: Abdomen soft, mildly diffusely tender worse in the lower abdomen with no rebound or guarding. MUSCULOSKELETAL: No obvious deformities. NEUROLOGICAL: Awake and alert. No obvious cranial nerve deficits. Moving all extremities. PSYCHIATRIC: Appropriate mood and affect; insight and judgment normal. Data Data Last Documented VS Vital Signs Date Time Temp Pulse Resp B/P (MAP) Pulse Ox O2 Delivery O2 Flow Rate FiO2 03/28/18 18:10 97.7 79 16 187/112 (137) 98 Orders Orders Complete Blood Count With Diff (03/28/18 19:55) Comprehensive Metabolic Panel (03/28/18 19:55) Lipase (03/28/18 19:55) Lactic Acid (03/28/18 20:03) Cta Abd/Pel W Iv Contrast W 3d (03/28/18 ) Morphine Inj (Morphine Inj) (03/28/18 20:15) Sodium Chlor 0.9% 1000 Ml Inj (Ns 1000 M (03/28/18 20:15) Urinalysis - C+S If Indicated (03/28/18 20:57) Sodium Chlor 0.9% 1000 Ml Inj (Ns 1000 M (03/28/18 21:45) Blood Culture (03/28/18 21:34) Piperacil-Tazo 3.375 Gm Premix (Zosyn 3. (03/28/18 21:45) Iodixanol 320 Inj (Rad Ct) (Visipaque 32 (03/28/18 22:18) Lactic Acid (03/28/18 22:45) Promethazine Inj (Phenergan Inj) (03/28/18 23:00) Electrocardiogram (03/28/18 ) Admit Order (Ed Use Only) (03/28/18 23:17) Labs Laboratory Tests Test 03/28/18 20:32 03/28/18 22:52 White Blood Count 14.0 TH/MM3 Red Blood Count 4.87 MIL/MM3 Hemoglobin 15.3 GM/DL Hematocrit 45.8 % Mean Corpuscular Volume 94.1 FL Mean Corpuscular Hemoglobin 31.5 PG Mean Corpuscular Hemoglobin Concent 33.4 % Red Cell Distribution Width 14.9 % Platelet Count 192 TH/MM3 Mean Platelet Volume 9.2 FL Neutrophils (%) (Auto) 86.8 % Lymphocytes (%) (Auto) 6.3 % Monocytes (%) (Auto) 4.9 % Eosinophils (%) (Auto) 1.4 % Basophils (%) (Auto) 0.6 % Neutrophils # (Auto) 12.1 TH/MM3 Lymphocytes # (Auto) 0.9 TH/MM3 Monocytes # (Auto) 0.7 TH/MM3 Eosinophils # (Auto) 0.2 TH/MM3 Basophils # (Auto) 0.1 TH/MM3 CBC Comment DIFF FINAL Differential Comment Blood Urea Nitrogen 21 MG/DL Creatinine 1.84 MG/DL Random Glucose 138 MG/DL Total Protein 9.2 GM/DL Albumin 4.7 GM/DL Calcium Level 9.4 MG/DL Alkaline Phosphatase 145 U/L Aspartate Amino Transf (AST/SGOT) 28 U/L Alanine Aminotransferase (ALT/SGPT) 26 U/L Total Bilirubin 0.4 MG/DL Sodium Level 139 MEQ/L Potassium Level 4.5 MEQ/L Chloride Level 104 MEQ/L Carbon Dioxide Level 23.9 MEQ/L Anion Gap 11 MEQ/L Estimat Glomerular Filtration Rate 36 ML/MIN Lactic Acid Level 3.2 mmol/L 2.3 mmol/L Lipase 312 U/L Urine Color YELLOW Urine Turbidity HAZY Urine pH 5.0 Urine Specific [place] 1.021 Urine Protein 30 mg/dL Urine Glucose (UA) NEG mg/dL Urine Ketones NEG mg/dL Urine Occult Blood SMALL Urine Nitrite NEG Urine Bilirubin NEG Urine Urobilinogen LESS THAN 2 mg/dL Urine Leukocyte Esterase NEG Urine RBC 7 /hpf Urine WBC 1 /hpf Urine Mucus FEW /lpf Microscopic Urinalysis Comment CULT NOT INDICATED MDM Medical Decision Making Medical Screen Exam Complete: Yes Emergency Medical Condition: Yes Interpretation(s) Afebrile, no tachycardia, hypertensive Leukocytosis 86% neutrophils Renal insufficiency Lactic acid is 3.2 Urinalysis demonstrates some blood Last 24 hours Impressions Abdomen/Pelvis CT 03/28/18 0000 Signed Impressions: CONCLUSION: Findings of small bowel ileus Endograft in place without evidence of rupture with stable sac size Mass in the splenic hilum as above. MRI is recommended for further evaluation i f clinically indicated. Differential Diagnosis Ischemic colitis, gastroenteritis, diarrhea, infectious colitis, appendicitis Narrative Course This is a 77-year-old male who has a history of severe vascular disease who presents to the emergency department with onset of abdominal discomfort that started this morning. He says this feels just like when he had "infarcted bowel " and required a bowel resection. He describes pain as 15 out of 5 and in the emergency department was observed to vomit. He was placed on a monitor and an IV was established and are reassuring. Labs demonstrate a leukocytosis and a lactic acid of 3.2. CTA was obtained which demonstrates patent vasculature however does demonstrate an ileus. Patient was covered with IV Zosyn and cultures were obtained. Given the patient's lactic acid, history and clinical appearance I am still concerned for mesenteric ischemia. I discussed the case with Dr. Vides application assistant for general surgery who recommended the patient be admitted to the ICU. I spoke to Dr. Cheek who came see the patient and agreed to observe the patient until morning. Repeat lactic acid trended downward after IV hydration which is reassuring. Physician Communication Physician Communication Discussed with Dr. Vides and Dr. Cheek Diagnosis Primary Impression: Sepsis Qualified Codes: A41.9 - Sepsis, unspecified organism Admitting Information Admitting Physician Requests: Admit Yenny Baumann MD Mar 28, 2018 20:19
[2018-03-28 21:14] LABS: ALBUMIN 4.7 GM/DL (3.4-5.0); AST (GOT) 28 U/L (15-37); BICARBONATE 23.9 MEQ/L (21.0-32.0); BLOOD UREA NITROGEN 21 MG/DL (7-18); CALCIUM 9.4 MG/DL (8.5-10.1); CHLORIDE 104 MEQ/L (98-107); CREATININE 1.84 MG/DL (0.60-1.30); GLOMERULAR FILTRATION RATE 36 ML/MIN (>89); GLUCOSE,RANDOM 138 MG/DL (74-106); SODIUM (NA) 139 MEQ/L (136-145)
[2018-03-28 21:15] LABS: ALT (GPT) 26 U/L (12-78)
[2018-03-28 21:17] LABS: ALKALINE PHOSPHATASE 145 U/L (45-117); TOTAL BILIRUBIN ADULT 0.4 MG/DL (0.2-1.0); TOTAL PROTEIN 9.2 GM/DL (6.4-8.2)
[2018-03-28 21:34] LABS: AUTOMATED NEUTROPHIL # 12.1 TH/MM3 (1.8-7.7); BASOPHIL # 0.1 TH/MM3 (0-0.2); BASOPHIL % 0.6 % (0.0-2.0); EOSINOPHIL # 0.2 TH/MM3 (0-0.4); EOSINOPHIL % 1.4 % (0.0-4.0); HEMATOCRIT 45.8 % (39.0-51.0); HEMOGLOBIN 15.3 GM/DL (13.0-17.0); LYMPH % 6.3 % (9.0-44.0); LYMPHOCYTE # 0.9 TH/MM3 (1.0-4.8); MEAN CELL VOLUME 94.1 FL (80.0-100.0); MEAN CORPUSCULAR HEMOGLOBIN 31.5 PG (27.0-34.0); MEAN CORPUSCULAR HGB CONC 33.4 % (32.0-36.0); MEAN PLATELET VOLUME 9.2 FL (7.0-11.0); MONO % 4.9 % (0.0-8.0); MONOCYTE # 0.7 TH/MM3 (0-0.9); NEUT % 86.8 % (16.0-70.0); PLATELET COUNT 192 TH/MM3 (150-450); RED BLOOD COUNT 4.87 MIL/MM3 (4.50-5.90); RED CELL DISTRIBUTION WIDTH 14.9 % (11.6-17.2)
[2018-03-28] MEDS ORDERED: PIPERACIL-TAZO 3.375 GM PREMIX 50 ML IV ONE (21:45)
[2018-03-28] MEDS ORDERED: SODIUM CHLOR 0.9% 1000 ML INJ 1,000 ML IV SCH (21:45)
[2018-03-28] MEDS ORDERED: IODIXANOL 320 MG/ML 10 ML VIAL (for Rad CT) IVCONTRAST ONE (22:18)
--- NOTE | 2018-03-28 22:26 | RADRPT ---
EXAM DATE: 03/28/2018 10:14 PM EDT AGE/SEX: 77 years / Male INDICATIONS: Back pain. CLINICAL DATA: This is the patient's initial encounter. Patient reports that signs and symptoms have been present for 1 day and indicates a pain score of 3/10. MEDICAL/SURGICAL HISTORY: Stroke. Cardiovascular disease. Carcinoma, prostatic. Prostatectomy. RADIATION DOSE: 12.51 CTDI (mGy) COMPARISON: No prior exams available for comparison. TECHNIQUE: Volumetric scanning was performed using a multi-row detector CT scanner during bolus infu cooper of 50 ml Visipaque 320 (iodixanol) nonionic water-soluble contrast as a single exam dose. . Th e data was post processed with a variety of visualization algorithms including full volume maximum in tensity projection, multi-planar sliding thin slab reformation, curved planar reformation, and surfac e rendering techniques. Using automated exposure control and adjustment of the mA and/or kV accordin g to patient size, radiation dose was kept as low as reasonably achievable to obtain optimal diagnost ic quality images. DICOM format image data is available electronically for review and comparison. FINDINGS: CT scan of the abdomen was performed in this patient with aortic stent graft in place. Precontrast an d delayed images were not obtained and the presence or absence of endoleak cannot be excluded. The li lilian is normal in size and free of focal defects. The gallbladder and pancreas are unremarkable. No intrahepatic or extrahepatic ductal dilatation is seen. There is a mass in the splenic hilum measurin g 3.8 cm of uncertain etiology. This indents the posterior wall the stomach. MRI is recommended for f urther evaluation if clinically indicated. There is a small atrophic right kidney. The left kidney i s unremarkable. Examination of the abdomen demonstrates gaseous distention of the small bowel with ai r fluid levels most consistent with ileus .There are no findings of small bowel obstruction. No free air is identified. No organomegaly is evident. Examination of the pelvis demonstrates no evidence of free fluid or pelvic mass. No abnormally enlarg ed inguinal or retroperitoneal lymph nodes are present. The bladder is unremarkable. CONCLUSION: Findings of small bowel ileus Endograft in place without evidence of rupture with stable sac size Mass in the splenic hilum as above. MRI is recommended for further evaluation if clinically indicated . Electronically signed by: Ashok Ma MD 03/28/2018 10:25 PM EDT
[2018-03-28] MEDS ORDERED: PROMETHAZINE INJ 25 MG/ML VIAL IM ONE (23:00)
[2018-03-28] MEDS: SODIUM CHLOR 0.9% 1000 ML INJ 1,000 ML IV SCH (23:00)
[2018-03-28 23:22] LABS: BILIRUBIN, URINE NEG (NEG); BLOOD, URINE SMALL (NEG); GLUCOSE,URINE NEG (NEG); KETONE, URINE NEG (NEG); MUCUS URINE FEW /lpf (OCC); NITRITE,URINE NEG (NEG); URINE COLOR YELLOW (YELLW/STRAW); URINE LEUKOCYTE ESTERASE NEG (NEG)
[2018-03-28] MEDS ORDERED: RESP: ALBUTEROL 2.5 MG/IPRATROPIUM 0.5 MG NEB (PRN) INH (23:30)
[2018-03-28] MEDS ORDERED: NURSING INFORMATION XX SCH (23:30)
[2018-03-28] MEDS ORDERED: MAGNESIUM OXIDE 400 MG TAB PO PRN (23:30)
[2018-03-28] MEDS ORDERED: POTASSIUM PHOSPHATE MONOBASIC 500 MG TAB PO/TUBE PRN (23:30)
[2018-03-28] MEDS ORDERED: POTASSIUM CHLOR 20 MEQ PREMIX 100 ML IV PRN ×2 (23:30)
[2018-03-28] MEDS ORDERED: POTASSIUM PHOSPHATE MONOBASIC 500 MG TAB PO PRN (23:30)
[2018-03-28] MEDS ORDERED: MAGNESIUM SULFATE INJ 4 GM in SODIUM CHLORIDE 0.9% INJ 92 ML IV PRN (23:30)
[2018-03-28] MEDS ORDERED: DEXTROSE 50% IN WATER 50 ML VIAL(D50) IV PUSH PRN (23:30)
[2018-03-28] MEDS ORDERED: POTASSIUM CHLORIDE 25 MEQ EFFERVESCENT TAB PO PRN (23:30)
[2018-03-28] MEDS ORDERED: CHLORHEXIDINE GLUCONATE 2 % 1 PACK (2 CLOTHS) TOP PRN (23:30)
[2018-03-28] MEDS ORDERED: ONDANSETRON ODT 4 MG TAB PO PRN (23:30)
[2018-03-28] MEDS ORDERED: POTASSIUM PHOSPHATE INJ 30 MMOL in SODIUM CHLOR 0.9% 250 ML INJ 250 ML IV PRN (23:30)
[2018-03-28] MEDS ORDERED: ACETAMINOPHEN 325 MG TAB PO PRN (23:30)
[2018-03-28] MEDS ORDERED: MAGNESIUM SULFATE INJ 2 GM in SODIUM CHLORIDE 0.9% INJ 96 ML IV PRN (23:30)
[2018-03-28] MEDS ORDERED: SODIUM PHOSPHATE INJ 30 MMOL in SODIUM CHLOR 0.9% 250 ML INJ 240 ML IV PRN (23:30)
[2018-03-28] MEDS ORDERED: POTASSIUM CHLOR 40 MEQ PREMIX 100 ML IV PRN ×2 (23:30)
--- NOTE | 2018-03-28 23:33 | HHI.HP ---
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 associated nausea, diarrhea, black dark stools. denies any other symptoms. no changes to his medical history and in his usual state of health. denies fever, chills. no chest pain, sob. states he used to be on Eliquis, but his doctor took him off this and left him on ASA, Plavix alone. He states he does not know why his doctor did this. denies any history of GI bleeding or recent falling. in the ER, found to have elevated lactate 3.2, Cr 1.8, wbc 14k with neutrophil predominance. CT abd/pelvis demonstrates small bowel ileus without transition point or concern for mechanical obstruction. ROS otherwise negative. patient is hemodynamically stable and received 2L crystalloid ivf in the ER. Review of Systems Constitutional: DENIES: Fatigue, Fever, Chills Ears, nose, mouth, throat: DENIES: Oral lesions, Throat pain Respiratory: DENIES: Cough, Hemoptysis, Sputum production, Shortness of breath Cardiovascular: DENIES: Chest pain, Palpitations, Dyspnea on Exertion, Lower Extremity Edema Gastrointestinal: COMPLAINS OF: Abdominal pain, Black stools, Diarrhea, Nausea , DENIES: Bloody stools, Constipation, Vomiting Musculoskeletal: DENIES: Back pain Neurologic: DENIES: Abnormal gait, Headache Psychiatric: DENIES: Confusion Past Family Social History Allergies: Coded Allergies: Poultry (Verified Adverse Reaction, Unknown, Cramping, 03/28/18) Fainting egg (Verified Adverse Reaction, Unknown, cramping, 03/28/18) fainting Past Medical History atrial fibrillation on chronic anticoagulation prostate cancer high cholesterol COPD prior CVA HTN PTSD Past Surgical History prior cardiac cath, PCI x 3. permanent pacemaker prostatectomy Reported Medications Meclizine (Meclizine HCl) 25 Mg Tab 25 Mg PO TID PRN Meclizine (Meclizine HCl) 25 Mg Tab 25 Mg PO DIRECTED PRN Pantoprazole (Pantoprazole Sodium) 40 Mg Tab 40 Mg PO DAILY Claritin (Loratadine) 10 Mg Cap 10 Mg PO DAILY Lisinopril 20 Mg Tab 20 Mg PO DAILY Plavix (Clopidogrel Bisulfate) 75 Mg Tab 75 Mg PO DAILY Atorvastatin (Atorvastatin Calcium) 40 Mg Tab 40 Mg PO HS Aspirin Low Dose (Aspirin) 81 Mg Chew 81 Mg CHEW DAILY Metoprolol Tartrate 25 Mg Tab 25 Mg PO BID Lisinopril 10 Mg Tab 10 Mg PO DAILY Famotidine 20 Mg Tab 20 Mg PO BID Active Ordered Medications See MAR Family History reviewed and found to be noncontributory to his acute illness. Social History 1ppd smoker. denies etoh, doa. Physical Exam Vital Signs Vital Signs Date Time Temp Pulse Resp B/P (MAP) Pulse Ox O2 Delivery O2 Flow Rate FiO2 03/28/18 18:10 97.7 79 16 187/112 (137) 98 Physical Exam GENERAL: elderly male, lying in bed, in distress due to abdominal pain HEENT: Normocephalic. Atraumatic. Pupils equal, round, reactive, conjugate. Mucous membranes are moist NECK: Trachea is midline. There is no JVD. CHEST: equal chest rise. room air. CARDIOVASCULAR: normal rate, irregularly irregular rhythm. afib. ABDOMEN: Soft, tender to palpation diffusely. voluntary guarding, no involuntary guarding or peritoneal signs. negative heel tap. nondistended. MUSCULOSKELETAL: Pulses 2+. No peripheral edema. NEUROLOGICAL: RASS 0. in distress due to pain but otherwise follows commands. no focal deficits. Laboratory Laboratory Tests Test 03/28/18 20:32 03/28/18 22:52 White Blood Count 14.0 Red Blood Count 4.87 Hemoglobin 15.3 Hematocrit 45.8 Mean Corpuscular Volume 94.1 Mean Corpuscular Hemoglobin 31.5 Mean Corpuscular Hemoglobin Concent 33.4 Red Cell Distribution Width 14.9 Platelet Count 192 Mean Platelet Volume 9.2 Neutrophils (%) (Auto) 86.8 Lymphocytes (%) (Auto) 6.3 Monocytes (%) (Auto) 4.9 Eosinophils (%) (Auto) 1.4 Basophils (%) (Auto) 0.6 Neutrophils # (Auto) 12.1 Lymphocytes # (Auto) 0.9 Monocytes # (Auto) 0.7 Eosinophils # (Auto) 0.2 Basophils # (Auto) 0.1 CBC Comment DIFF FINAL Differential Comment Blood Urea Nitrogen 21 Creatinine 1.84 Random Glucose 138 Total Protein 9.2 Albumin 4.7 Calcium Level 9.4 Alkaline Phosphatase 145 Aspartate Amino Transf (AST/SGOT) 28 Alanine Aminotransferase (ALT/SGPT) 26 Total Bilirubin 0.4 Sodium Level 139 Potassium Level 4.5 Chloride Level 104 Carbon Dioxide Level 23.9 Anion Gap 11 Estimat Glomerular Filtration Rate 36 Lactic Acid Level 3.2 Lipase 312 Urine Color YELLOW Urine Turbidity HAZY Urine pH 5.0 Urine Specific [place] 1.021 Urine Protein 30 Urine Glucose (UA) NEG Urine Ketones NEG Urine Occult Blood SMALL Urine Nitrite NEG Urine Bilirubin NEG Urine Urobilinogen LESS THAN 2 Urine Leukocyte Esterase NEG Urine RBC 7 Urine WBC 1 Urine Mucus FEW Microscopic Urinalysis Comment CULT NOT INDICATED Date/Time Source Procedure Growth Status 03/28/18 22:00 Blood Peripheral Aerobic Blood Culture Pending Received 03/28/18 22:00 Blood Peripheral Anaerobic Blood Culture Pending Received Result Diagram: 03/28/18203103/28/182031 Imaging Last Impressions Abdomen/Pelvis CT 03/28/18 0000 Signed Impressions: CONCLUSION: Findings of small bowel ileus Endograft in place without evidence of rupture with stable sac size Mass in the splenic hilum as above. MRI is recommended for further evaluation i f clinically indicated. Septic Shock Reassessment Septic shock perfusion: reassessment completed Caprini VTE Risk Assessment Caprini VTE Risk Assessment: Mod/High Risk (score >= 2) Caprini Risk Assessment Model Point Value = 1 Point Value = 2 Point Value = 3 Point Value = 5 Age 41-60 Minor surgery BMI > 25 kg/m2 Swollen legs Varicose veins or History of unexplained or recurrent spontaneous Oral contraceptives or hormone replacement Sepsis (< 1 month) Serious lung disease, including pneumonia (< 1 month) Abnormal pulmonary function Acute myocardial infarction Congestive heart failure (< 1 month) History of inflammatory bowel disease Medical patient at bed rest Age 61-74 Arthroscopic surgery Major open surgery (> 45 min) Laparoscopic surgery (> 45 min) Malignancy Confined to bed (> 72 hours) Immobilizing plaster cast Central venous access Age >= 75 History of VTE Family history of VTE Factor V Leiden Prothrombin [id number] Lupus anticoagulant Anticardiolipin antibodies Elevated serum homocysteine Heparin-induced thrombocytopenia Other congenital or acquired thrombophilia Stroke (< 1 month) Elective arthroplasty Hip, pelvis, or leg fracture Acute spinal cord injury (< 1 month) Prophylaxis Regimen Total Risk Factor Score Risk Level Prophylaxis Regimen 0-1 Low Early ambulation 2 Moderate Order ONE of the following: *Sequential Compression Device (SCD) *Heparin 5000 units SQ BID 3-4 Higher Order ONE of the following medications: *Heparin 5000 units SQ TID *Enoxaparin/Lovenox 40 mg SQ daily (WT < 150 kg, CrCl > 30 mL/min) *Enoxaparin/Lovenox 30 mg SQ daily (WT < 150 kg, CrCl > 10-29 mL/min) *Enoxaparin/Lovenox 30 mg SQ BID (WT < 150 kg, CrCl > 30 mL/min) AND/OR *Sequential Compression Device (SCD) 5 or more Highest Order ONE of the following medications: *Heparin 5000 units SQ TID (Preferred with Epidurals) *Enoxaparin/Lovenox 40 mg SQ daily (WT < 150 kg, CrCl > 30 mL/min) *Enoxaparin/Lovenox 30 mg SQ daily (WT < 150 kg, CrCl > 10-29 mL/min) *Enoxaparin/Lovenox 30 mg SQ BID (WT < 150 kg, CrCl > 30 mL/min) AND *Sequential Compression Device (SCD) Assessment and Plan Assessment and Plan Assessment: 77yM vasculopath with history of endovascular aneurysm repair as well as prior ischemic bowel s/p bowel resection is admitted with abdominal pain , nausea, diarrhea with pain [id number] to clinical exam. Agree with trending lactates and ivf hydration. if he remains stable, can transfer out of ICU tomorrow. To my read, there is excellent contrast filling the major abdominal vessels which clinically appears to rule out large-vessel occlusion of the intestinal arteries. will not heparinize at this time, unless clinically declining. Clearly high risk and complex with multiple medical problems. Abdominal pain Nausea Diarrhea - send stool ova/parasites, enteric pathogens screen - cipro and flagyl - send c. diff pcr - if cultures are negative, would d/c abx. - NPO - protonix iv - ivf - send stool occult blood. Lactic Acidosis - could be secondary to dehydration and volume depletion - trend - mivf Acute kidney injury - strict i/o's - no indication for carrera catheter at this time - may be superimposed on some element of chronic renal insufficiency, unknown stage. - mivf - trend bmp Atrial fibrillation - currently rate controlled. - continue metoprolol - CHADS-VaSC score > 2: meets criteria for full anticoagulation. unclear why he is not anticoagulated, although he may have a contra-indication I am not aware of such as prior GI bleeding. Hypertension - continue home antihypertensives Hyperlipidemia - continue statin GERD - continue protonix, but will convert to iv until GI work-up complete. SCDs SQH- would heparinize if lactate continues to worsen. given clinical prior history of intestinal ischemia, I think it is reasonable to watch in an ICU setting overnight. if clinically improves, can transfer out of ICU in the AM. would consult hospitalist service to assume care if he remains stable. Lorne Valdovinos MD Mar 28, 2018 23:33
[2018-03-28 23:54] VITALS: BP 152/86; PULSE 70; RESP 18; O2SAT 97
[2018-03-29] VITALS (10 sets, daily range): BP systolic 140–197; BP diastolic 78–93; PULSE 60–78; RESP 20–26; TEMP 97.6–99; O2SAT 93–97
[2018-03-29] MEDS ORDERED: MORPHINE SULFATE 2 MG/ML SYRINGE IM PRN
[2018-03-29] MEDS: CIPROFLOXACIN 400 MG PREMIX 200 ML IV SCH (00:02)
[2018-03-29] MEDS: HEPARIN SODIUM - SQ 10,000 UNITS/ML VIAL SQ SCH ×3 (00:03→20:41)
[2018-03-29] MEDS: CHLORHEXIDINE GLUCONATE 2 % 1 PACK (2 CLOTHS) TOP SCH (00:30)
[2018-03-29] MEDS: metroNIDAZOLE 500 MG INJ 100 ML IV SCH ×3 (01:16→11:48)
[2018-03-29] MEDS: MORPHINE SULFATE 4 MG/ML INJ IM PRN ×2 (01:18→20:42)
[2018-03-29] MEDS ORDERED: hydrALAZINE HCL 50 MG TAB PO PRN (03:00)
[2018-03-29 04:52] LABS: HEMATOCRIT 44.1 % (39.0-51.0); HEMOGLOBIN 14.8 GM/DL (13.0-17.0); MEAN CELL VOLUME 95.4 FL (80.0-100.0); MEAN CORPUSCULAR HGB CONC 33.5 % (32.0-36.0); MEAN PLATELET VOLUME 8.7 FL (7.0-11.0); PLATELET COUNT 176 TH/MM3 (150-450); RED BLOOD COUNT 4.63 MIL/MM3 (4.50-5.90); RED CELL DISTRIBUTION WIDTH 14.9 % (11.6-17.2); WHITE BLOOD COUNT 13.1 TH/MM3 (4.0-11.0)
[2018-03-29 05:23] LABS: BICARBONATE 21.5 MEQ/L (21.0-32.0); CALCIUM 8.7 MG/DL (8.5-10.1); CREATININE 1.7 MG/DL (0.60-1.30)
[2018-03-29] MEDS: INSULIN NovoLIN REGULAR SUPPLEMENTAL SCALE SQ SCH ×3 (06:00→11:49)
--- NOTE | 2018-03-29 08:18 | MB ---
cc: Syemour Vides MD DATE: 03/29/2018 DATE OF CONSULTATION 03/29/2018 REASON FOR CONSULTATION: Rule out ischemic bowel. HISTORY OF PRESENT ILLNESS: Mr. López is a very pleasant 77-year-old patient who came to the emergency department with a 12-hour history of abdominal pain. He reports he has a history of ischemic bowel in the past and he was worried that it was happening again. Apparently several years ago he had ischemic bowel and was treated up at [facility]. He reports the pain was constant, severe and in his mid epigastric region. He states it was an overall dull, aching soreness with some intermittent sharp, stabbing pain. He denied any nausea and vomiting, although the ER reports that he did have some nausea and vomiting. He does have a history of atrial fibrillation, but is currently on anticoagulation. He states he has had several loose dark stools during the day. He has had no fever or chills. He was seen and evaluated in the emergency department. It should be noted the patient was normotensive and not tachycardic. Dr. Ibarra examined him and sent him for a CT scan of the abdomen and pelvis, which was fairly unremarkable. She did check a lactate and it was 3, and she was concerned about a possible ischemic bowel. I recommended admission to the ICU with fluid resuscitation and close observation. I advised her if the patient's clinical condition deteriorated, to please call me back and I would gladly see the patient immediately. The patient was admitted to the ICU overnight by Dr. Lorne Valdovinos. This morning, the patient states he is feeling much better. He is asking for a cup of coffee. Nursing staff reports that he did have a small amount of emesis overnight. He has remained hemodynamically stable. PAST MEDICAL HISTORY: He has coronary artery disease, atrial fibrillation, vascular disease, COPD, previous stroke, hypertension. PAST SURGICAL HISTORY: He has had cardiac stents, a pacemaker, a prostatectomy, and exploratory laparotomy for a bowel resection. MEDICATIONS: Include: 1. Meclizine. 2. Prilosec. 3. Claritin. 4. Lisinopril. 5. Plavix. 6. Atorvastatin. 7. Aspirin 8. Metoprolol. 9. Lisinopril. 10. Famotidine. ALLERGIES: HE HAS AN ALLERGY TO EGGS, BUT NO MEDICAL ALLERGIES. SOCIAL HISTORY: He smokes a pack a day, does not drink alcohol. He lives up in [place]. REVIEW OF SYSTEMS: Please see HPI. PHYSICAL EXAMINATION: VITAL SIGNS: Temperature is 97, pulse is 60, blood pressure is 190/90, respiratory rate 20. GENERAL: This is a pleasant elderly gentleman watching TV, in no apparent distress. HEENT: Pupils equal, round and reactive to light. Sclerae are white. Oropharynx is clear and moist. NECK: Supple. No masses. LUNGS: Clear to auscultation bilaterally. HEART: S1, S2, irregular. ABDOMEN: Soft, nontender, nondistended. Few bowel sounds are noted. He has a midline laparotomy incision. No obvious hernias. EXTREMITIES: Free range of motion x 4. NEUROLOGIC: Alert and oriented x 3. LABORATORY DATA: White blood cell count was 14 last night; it is 13 this morning. He had 86 percent neutrophils. Hemoglobin is 15, platelet count is 192. Electrolytes within normal limits except for an elevated creatinine at 1.7. His lactic acid was 3.2 last night; it is 2.5 this morning. His urinalysis is negative. IMAGING: CT scan of the abdomen and pelvis shows an ileus pattern, no obvious mechanical obstruction, no free fluid. He does have some stool and gas in the colon. No bowel wall thickening. No pneumatosis. IMPRESSION: Abdominal pain of undetermined etiology. PLAN: At this point, I do not believe the patient has ischemic bowel by physical exam or imaging or laboratory data. Overall, his vital signs have remained stable. His abdominal pain has improved with hydration. I would recommend careful observation. He does have a mild ileus, by CT imaging, which may be contributing to his nausea and vomiting. I recommend we keep him n.p.o. for 24 hours, hydrate him aggressively, and watch him. If he has a clinical deterioration, we will consider formal exploration. I do not believe an NG tube is necessary at this time unless his nausea and vomiting persist throughout the day. We will follow up his clinical exam. If there is a change in his clinical condition, please notify surgeon [employer] manufacturing consultant and we will gladly see him immediately. MD LUIS Valencia/MADIE , 07:54 AM , 08:17 AM
--- NOTE | 2018-03-29 10:02 | HHI.PR ---
Subjective Remarks Abdominal pain. The patient states that he feels much better today. No abdominal pain has improved significantly. He does report 2 episodes of vomiting a small amount that looked "like coffee grounds" per the patient's report. He denies any bowel movements. No fever, chills, night sweats. No cough, dyspnea, chest pain. Objective Vitals Vital Signs Date Time Temp Pulse Resp B/P (MAP) Pulse Ox O2 Delivery O2 Flow Rate FiO2 03/29/18 09:02 96 03/29/18 02:00 60 03/29/18 00:35 97.6 69 20 197/93 (127) 97 03/29/18 00:11 03/28/18 23:54 70 18 152/86 (108) 97 Room Air 03/28/18 18:10 97.7 79 16 187/112 (137) 98 I/O 03/28/18 03/28/18 03/28/18 03/29/18 03/29/18 03/29/18 07:00 15:00 23:00 07:00 15:00 23:00 Intake Total 1050 ml 1770 ml Output Total 150 ml Balance 1050 ml 1620 ml Intake IV Total 1050 ml 1770 ml Output Urine Total 100 ml Emesis 50 ml # Bowel Movements 0 Result Diagram: 03/29/18 0435 03/29/18 0435 Imaging Last Impressions Abdomen/Pelvis CT 03/28/18 0000 Signed Impressions: CONCLUSION: Findings of small bowel ileus Endograft in place without evidence of rupture with stable sac size Mass in the splenic hilum as above. MRI is recommended for further evaluation i f clinically indicated. Objective Remarks General: Elderly male in no acute distress. Heart: Irregular rhythm. No murmur. Lungs: Clear to auscultation bilaterally. No wheezes, rales, or rhonchi. Breathing is nonlabored. Abdomen: Soft, mild diffuse tenderness to palpation without rebound or guarding , nondistended. Positive bowel sounds. Extremities: No lower extremity edema. Psych: Alert and oriented. Neuro: Normal speech. No focal deficits noted. Procedures None Urinary Catheter: No Vascular Central Line Catheter: No A/P Assessment and Plan 1. Abdominal pain, nausea, vomiting: Symptoms are improving. Continue Protonix. Continue Cipro, Flagyl. Stool studies are pending. Appreciate general surgery recommendations. Nonoperative treatment at this time. Will monitor symptoms. 2. Lactic acidosis: Possibly secondary to dehydration. Serum lactic acid has decreased somewhat from admission, but still elevated. 3. Acute kidney injury: Continue IV fluids. Monitor labs. 4. Atrial fibrillation: Currently rate controlled. Continue metoprolol. CHADS -VaSC score >2. Meets criteria for full anticoagulation. Uncertain if there is a contraindication in the patient's history, but he is not currently on full anticoagulation. 5. Hypertension: Continue home medications. 6. Hyperlipidemia: Continue statin. 7. GERD: Continue Protonix. 8. DVT prophylaxis: Heparin. Discharge Planning Transfer to medical/surgical floor with telemetry. Lenin Santana MD Mar 29, 2018 10:02
[2018-03-29] MEDS: PANTOPRAZOLE SODIUM 40 MG VIAL IV PUSH SCH (11:47)
[2018-03-29] MEDS: SODIUM CHLOR 0.9% 1000 ML INJ 1,000 ML IV SCH (11:49)
--- NOTE | 2018-03-29 17:57 | EKG ---
Date Performed: 03/28/2018 Time Performed: 23:09:00 PTAGE: 77 years EK% atrial pacing PVCs not present, compared to prior tracing. ABNORMAL RHYTHM ECG PREVIOUS TRACING : 01/16/2018 13.28 DOCTOR: Rojelio Schilling Interpretating Date/Time 03/29/2018 17:56:24
[2018-03-30] VITALS (14 sets, daily range): BP systolic 114–165; BP diastolic 70–97; PULSE 68–83; RESP 13–33; TEMP 98.7–99; O2SAT 79–97
[2018-03-30] MEDS ORDERED: PROPOFOL 500 MG/50 ML INJ 50 ML ONE (02:02)
[2018-03-30] MEDS: CHLORHEXIDINE GLUCONATE 2 % 1 PACK (2 CLOTHS) TOP SCH ×2 (04:00→22:30)
[2018-03-30 04:35] LABS: HEMATOCRIT 40.1 % (39.0-51.0); HEMOGLOBIN 13.4 GM/DL (13.0-17.0); MEAN CELL VOLUME 96.4 FL (80.0-100.0); MEAN CORPUSCULAR HEMOGLOBIN 32.2 PG (27.0-34.0); MEAN CORPUSCULAR HGB CONC 33.4 % (32.0-36.0); MEAN PLATELET VOLUME 8.9 FL (7.0-11.0); PLATELET COUNT 158 TH/MM3 (150-450); RED BLOOD COUNT 4.17 MIL/MM3 (4.50-5.90); RED CELL DISTRIBUTION WIDTH 14.8 % (11.6-17.2)
[2018-03-30 04:54] LABS: CALCIUM 8.1 MG/DL (8.5-10.1); CREATININE 1.58 MG/DL (0.60-1.30)
[2018-03-30] MEDS: HEPARIN SODIUM - SQ 10,000 UNITS/ML VIAL SQ SCH ×3 (05:55→20:30)
[2018-03-30] MEDS: SODIUM CHLOR 0.9% 1000 ML INJ 1,000 ML IV SCH ×2 (05:56→22:47)
[2018-03-30] MEDS: metroNIDAZOLE 500 MG INJ 100 ML IV SCH ×4 (05:57→23:53)
[2018-03-30] MEDS: INSULIN NovoLIN REGULAR SUPPLEMENTAL SCALE SQ SCH ×5 (05:59→23:47)
[2018-03-30] MEDS: PANTOPRAZOLE SODIUM 40 MG VIAL IV PUSH SCH (09:20)
[2018-03-30] MEDS: METOPROLOL TARTRATE 25 MG TAB PO SCH ×2 (09:20→20:29)
[2018-03-30] MEDS: LISINOPRIL 20 MG TAB PO SCH (09:20)
--- NOTE | 2018-03-30 09:48 | HHI.PR ---
Subjective Remarks Follow-up abdominal pain, atrial fibrillation. The patient states that his abdominal pain is much better today. He is hungry. Denies chest pain or dyspnea. Objective Vitals Vital Signs Date Time Temp Pulse Resp B/P (MAP) Pulse Ox O2 Delivery O2 Flow Rate FiO2 03/30/18 07:55 95 03/30/18 04:00 69 03/30/18 00:50 96 Nasal Cannula 2.00 03/30/18 00:00 83 26 137/70 (92) 82 03/30/18 00:00 83 03/30/18 00:00 83 03/29/18 20:00 78 03/29/18 20:00 69 03/29/18 20:00 99.0 68 20 172/84 (113) 94 03/29/18 19:44 93 21 03/29/18 16:00 75 03/29/18 15:00 69 03/29/18 12:00 69 I/O 03/29/18 03/29/18 03/29/18 03/30/18 03/30/18 03/30/18 07:00 15:00 23:00 07:00 15:00 23:00 Intake Total 1770 ml 100 ml 1200 ml Output Total 150 ml 5520 ml 800 ml Balance 1620 ml -5420 ml 400 ml Intake Oral 0 ml IV Total 1770 ml 100 ml 1200 ml Output Urine Total 100 ml 5520 ml 800 ml Emesis 50 ml # Bowel Movements 0 0 0 Result Diagram: 03/30/18 0406 03/30/18 0406 Imaging Last Impressions Abdomen/Pelvis CT 03/28/18 0000 Signed Impressions: CONCLUSION: Findings of small bowel ileus Endograft in place without evidence of rupture with stable sac size Mass in the splenic hilum as above. MRI is recommended for further evaluation i f clinically indicated. Objective Remarks General: Elderly male in no acute distress. Heart: Irregular rhythm, tachycardic. No murmur. Lungs: Clear to auscultation bilaterally. No wheezes, rales, or rhonchi. Breathing is nonlabored. Abdomen: Soft, nontender, nondistended. Positive bowel sounds. Extremities: No lower extremity edema. Psych: Alert and oriented. Neuro: Normal speech. No focal deficits noted. Procedures None Urinary Catheter: No Vascular Central Line Catheter: No A/P Assessment and Plan 1. Abdominal pain, nausea, vomiting: Symptoms are improving. Continue Protonix. Continue Cipro, Flagyl. Stool studies are pending. Appreciate general surgery recommendations. Nonoperative treatment at this time. Will monitor symptoms. 2. Lactic acidosis: Possibly secondary to dehydration. Serum lactic acid trended downward. 3. Acute kidney injury: Continue IV fluids. Monitor labs. Creatinine trending down. 4. Atrial fibrillation: Rate is elevated. Patient missed last night's dose of metoprolol. Restart home dose metoprolol. CHADS-VaSC score >2. Meets criteria for full anticoagulation. Uncertain if there is a contraindication in the patient's history, but he is not currently on full anticoagulation. 5. Hypertension: Continue home medications. 6. Hyperlipidemia: Continue statin. 7. GERD: Continue Protonix. 8. DVT prophylaxis: Heparin. Discharge Planning Transfer to medical/surgical floor with telemetry when a bed is available. Lenin Santana MD Mar 30, 2018 09:48
--- NOTE | 2018-03-30 20:51 | HHI.PR ---
Subjective Subjective Notes Patient feels better but still a little tender in the right lower abdomen. He has passed flatus but not had a bowel movement yet Objective Vitals/I&O Vital Signs Date Time Temp Pulse Resp B/P (MAP) Pulse Ox O2 Delivery O2 Flow Rate FiO2 03/30/18 19:35 96 03/30/18 16:00 98.9 72 16 165/75 (105) 03/30/18 00:50 Nasal Cannula 2.00 03/29/18 19:44 21 Labs Laboratory Tests Test 03/30/18 04:06 White Blood Count 7.0 Red Blood Count 4.17 Hemoglobin 13.4 Hematocrit 40.1 Mean Corpuscular Volume 96.4 Mean Corpuscular Hemoglobin 32.2 Mean Corpuscular Hemoglobin Concent 33.4 Red Cell Distribution Width 14.8 Platelet Count 158 Mean Platelet Volume 8.9 Blood Urea Nitrogen 24 Creatinine 1.58 Random Glucose 112 Calcium Level 8.1 Sodium Level 143 Potassium Level 4.4 Chloride Level 113 Carbon Dioxide Level 20.0 Anion Gap 10 Estimat Glomerular Filtration Rate 43 Date/Time Source Procedure Growth Status 03/28/18 22:00 Blood Peripheral Aerobic Blood Culture - Preliminary NO GROWTH IN 2 DAYS Resulted 03/28/18 22:00 Blood Peripheral Anaerobic Blood Culture - Preliminary NO GROWTH IN 2 DAYS Resulted Abdomen: Non-distended, Other (Mild tenderness in the right lower quadrant versus left. No rebound or guarding. Well-healed midline scar and right groin scar from prior surgeries.) A/P Assessment and Plan 77-year-old gentleman with CT findings consistent with small bowel ileus. Basic metabolic profile indicates he came in dehydrated. I am unsure whether he had a viral enteritis. At this time his findings are not suspicious for ischemic bowel. There is no indication for surgical intervention. I will see what diet he is on and slowly advance it. Ashok Navarro MD Mar 30, 2018 20:51
[2018-03-30] MEDS ORDERED: ATORVASTATIN 40 MG TAB PO SCH (21:00)
[2018-03-31] VITALS (7 sets, daily range): BP systolic 134–162; BP diastolic 71–100; PULSE 69–80; RESP 12–17; TEMP 98.6–98.7; O2SAT 91–98
[2018-03-31] MEDS: CIPROFLOXACIN 400 MG PREMIX 200 ML IV SCH ×2 (00:03)
[2018-03-31] MEDS: INSULIN NovoLIN REGULAR SUPPLEMENTAL SCALE SQ SCH ×2 (06:00→12:00)
[2018-03-31] MEDS: metroNIDAZOLE 500 MG INJ 100 ML IV SCH ×2 (06:13→12:36)
[2018-03-31] MEDS: HEPARIN SODIUM - SQ 10,000 UNITS/ML VIAL SQ SCH ×2 (06:13→12:36)
[2018-03-31 07:03] LABS: HEMOGLOBIN 11.6 GM/DL (13.0-17.0); MEAN CELL VOLUME 94.3 FL (80.0-100.0); MEAN CORPUSCULAR HEMOGLOBIN 32.3 PG (27.0-34.0); MEAN CORPUSCULAR HGB CONC 34.2 % (32.0-36.0); MEAN PLATELET VOLUME 9.1 FL (7.0-11.0); PLATELET COUNT 135 TH/MM3 (150-450); RED CELL DISTRIBUTION WIDTH 14.8 % (11.6-17.2); WHITE BLOOD COUNT 6.5 TH/MM3 (4.0-11.0)
[2018-03-31 07:21] LABS: BICARBONATE 21.4 MEQ/L (21.0-32.0); CREATININE 1.43 MG/DL (0.60-1.30)
[2018-03-31] MEDS: PANTOPRAZOLE SODIUM 40 MG VIAL IV PUSH SCH (08:29)
[2018-03-31] MEDS: SODIUM CHLOR 0.9% 1000 ML INJ 1,000 ML IV SCH (08:30)
[2018-03-31] MEDS: METOPROLOL TARTRATE 25 MG TAB PO SCH (08:30)
[2018-03-31] MEDS: LISINOPRIL 20 MG TAB PO SCH (08:30)
--- NOTE | 2018-03-31 09:27 | HHI.PR ---
cc: Seymour Vides MD Subjective Subjective Notes Eating breakfast Wants to go home today Objective Vitals/I&O Vital Signs Date Time Temp Pulse Resp B/P (MAP) Pulse Ox O2 Delivery O2 Flow Rate FiO2 03/31/18 07:46 91 21 03/31/18 04:00 69 03/31/18 04:00 98.6 17 135/74 (94) 03/30/18 00:50 Nasal Cannula 2.00 Labs Laboratory Tests Test 03/31/18 05:44 White Blood Count 6.5 Red Blood Count 3.60 Hemoglobin 11.6 Hematocrit 34.0 Mean Corpuscular Volume 94.3 Mean Corpuscular Hemoglobin 32.3 Mean Corpuscular Hemoglobin Concent 34.2 Red Cell Distribution Width 14.8 Platelet Count 135 Mean Platelet Volume 9.1 Blood Urea Nitrogen 24 Creatinine 1.43 Random Glucose 75 Calcium Level 8.0 Sodium Level 143 Potassium Level 3.8 Chloride Level 113 Carbon Dioxide Level 21.4 Anion Gap 9 Estimat Glomerular Filtration Rate 48 Date/Time Source Procedure Growth Status 03/28/18 22:00 Blood Peripheral Aerobic Blood Culture - Preliminary NO GROWTH IN 2 DAYS Resulted 03/28/18 22:00 Blood Peripheral Anaerobic Blood Culture - Preliminary NO GROWTH IN 2 DAYS Resulted Cardiovascular: Regular Lungs: Clear Abdomen: Non-distended, Non-tender Extremities: No edema A/P Assessment and Plan 77-year-old gentleman with CT findings consistent with small bowel ileus; dehydration -Regular diet -No surgical intervention -GS clear for DC; No follow up needed Antonia Gant/Cover Marker DIETER Mar 31, 2018 09:27
--- NOTE | 2018-03-31 12:57 | HHI.DS ---
Discharge Summary Admission Date Mar 28, 2018 at 23:19 Discharge Date: Mar 31, 2018 Admitting Diagnosis sepsis (1) Ileus ICD Code: K56.7 - Ileus, unspecified Status: Acute (2) CKD (chronic kidney disease), stage III ICD Code: N18.3 - Chronic kidney disease, stage 3 (moderate) Diagnosis: Secondary Status: Chronic (3) Acute renal injury ICD Code: N17.9 - Acute kidney failure, unspecified Diagnosis: Secondary Status: Resolved Procedures None Brief History - From Admission [id number] with history of afib and remote prior ischemic bowel s/p ex-lap with bowel resection (14 inches, per patient) presents with abdominal pain that started this morning. associated nausea, diarrhea, black dark stools. denies any other symptoms. no changes to his medical history and in his usual state of health. denies fever, chills. no chest pain, sob. states he used to be on Eliquis, but his doctor took him off this and left him on ASA, Plavix alone. He states he does not know why his doctor did this. denies any history of GI bleeding or recent falling. in the ER, found to have elevated lactate 3.2, Cr 1.8, wbc 14k with neutrophil predominance. CT abd/pelvis demonstrates small bowel ileus without transition point or concern for mechanical obstruction. ROS otherwise negative. patient is hemodynamically stable and received 2L crystalloid ivf in the ER. CBC/BMP: 03/31/18 0544 03/31/18 0544 Significant Findings Laboratory Tests Test 03/28/18 20:32 03/28/18 22:52 03/29/18 01:00 03/29/18 04:35 White Blood Count 14.0 TH/MM3 (4.0-11.0) 13.1 TH/MM3 (4.0-11.0) Neutrophils (%) (Auto) 86.8 % (16.0-70.0) Lymphocytes (%) (Auto) 6.3 % (9.0-44.0) Neutrophils # (Auto) 12.1 TH/MM3 (1.8-7.7) Lymphocytes # (Auto) 0.9 TH/MM3 (1.0-4.8) Blood Urea Nitrogen 21 MG/DL (7-18) 21 MG/DL (7-18) Creatinine 1.84 MG/DL (0.60-1.30) 1.70 MG/DL (0.60-1.30) Random Glucose 138 MG/DL (74-106) 157 MG/DL (74-106) Total Protein 9.2 GM/DL (6.4-8.2) Alkaline Phosphatase 145 U/L (45-117) Estimat Glomerular Filtration Rate 36 ML/MIN (>89) 39 ML/MIN (>89) Lactic Acid Level 3.2 mmol/L (0.4-2.0) 2.3 mmol/L (0.4-2.0) 2.5 mmol/L (0.4-2.0) Urine Turbidity HAZY (CLEAR) Urine Protein 30 mg/dL (NEG-TRACE) Urine Occult Blood SMALL (NEG) Urine RBC 7 /hpf (0-3) Urine Mucus FEW /lpf (OCC) Test 03/30/18 04:06 03/31/18 05:44 Red Blood Count 4.17 MIL/MM3 (4.50-5.90) 3.60 MIL/MM3 (4.50-5.90) Blood Urea Nitrogen 24 MG/DL (7-18) 24 MG/DL (7-18) Creatinine 1.58 MG/DL (0.60-1.30) 1.43 MG/DL (0.60-1.30) Random Glucose 112 MG/DL (74-106) Calcium Level 8.1 MG/DL (8.5-10.1) 8.0 MG/DL (8.5-10.1) Chloride Level 113 MEQ/L (98-107) 113 MEQ/L (98-107) Carbon Dioxide Level 20.0 MEQ/L (21.0-32.0) Estimat Glomerular Filtration Rate 43 ML/MIN (>89) 48 ML/MIN (>89) Hemoglobin 11.6 GM/DL (13.0-17.0) Hematocrit 34.0 % (39.0-51.0) Platelet Count 135 TH/MM3 (150-450) Imaging Last Impressions Abdomen/Pelvis CT 03/28/18 0000 Signed Impressions: CONCLUSION: Findings of small bowel ileus Endograft in place without evidence of rupture with stable sac size Mass in the splenic hilum as above. MRI is recommended for further evaluation i f clinically indicated. PE at Discharge General: Elderly male in no acute distress. Heart: Irregular rhythm, tachycardic. No murmur. Lungs: Clear to auscultation bilaterally. No wheezes, rales, or rhonchi. Breathing is nonlabored. Abdomen: Soft, nontender, nondistended. Positive bowel sounds. Extremities: No lower extremity edema. Psych: Alert and oriented. Neuro: Normal speech. No focal deficits noted. Pt update on day of discharge Patient states no further abdominal pain. he is tolerating his diet without any difficulty. Hospital Course These are the medical issues addressed during this hospitalization: 1. Small bowel Ileus, Abdominal pain, nausea, vomiting: Patient was initially placed on bowel rest and now tolerating diet. Symptoms are improving. Continue Protonix. Appreciate general surgery, Dr. melvin Patel recommendations during hospitalization. Nonoperative treatment at this time. Symptoms were monitored during hospitalization and now has been cleared by general surgery for discharge to home. 2. Lactic acidosis: Possibly secondary to dehydration and ileus. Serum lactic acid trended downward. 3. Acute kidney injury superimposed on chronic kidney disease stage III: Continue IV fluids. Monitor labs. Creatinine trending down. 4. Atrial fibrillation now in normal sinus rhythm on metoprolol: Currently on aspirin 5. Hypertension, chronic essential: Continue home medications. 6. Hyperlipidemia: Continue statin. 7. GERD: Continue Protonix. 8. DVT prophylaxis: Heparin. At this time, patient has gained maximum benefit from hospitalization ready to be discharged to home with outpatient follow-up Pt Condition on Discharge: Good Discharge Disposition: Discharge Home Discharge Time: <= 30 minutes Discharge Instructions DIET: Follow Instructions for: Heart Healthy Diet Activities you can perform: Regular-No Restrictions Follow up Referrals: PCP Follow-up - 1 Week Continued Medications: Aspirin (Aspirin Low Dose) 81 Mg Chew 81 MG CHEW DAILY, TAB 0 Refills Atorvastatin (Atorvastatin) 40 Mg Tab 40 MG PO HS for Cholesterol Management, #30 TAB 0 Refills Clopidogrel (Plavix) 75 Mg Tab 75 MG PO DAILY for Blood Clot Prevention, #30 TAB 0 Refills Famotidine (Famotidine) 20 Mg Tab 20 MG PO BID, #60 TAB 0 Refills Lisinopril (Lisinopril) 10 Mg Tab 10 MG PO DAILY, #30 TAB 0 Refills Lisinopril (Lisinopril) 20 Mg Tab 20 MG PO DAILY, #30 TAB 0 Refills Loratadine (Claritin) 10 Mg Cap 10 MG PO DAILY for Allergy Management, CAP 0 Refills Meclizine (Meclizine) 25 Mg Tab 25 MG PO DIRECTED PRN for VERTIGO, #20 TAB 0 Refills Metoprolol Tartrate (Metoprolol Tartrate) 25 Mg Tab 25 MG PO BID, #60 TAB 0 Refills Pantoprazole (Pantoprazole) 40 Mg Tab 40 MG PO DAILY for Reflux, #30 TAB 0 Refills Discontinued Medications: Meclizine (Meclizine) 25 Mg Tab 25 MG PO TID PRN for VERTIGO, #15 TAB 0 Refills Lily Liriano MD Mar 31, 2018 12:57
== END 2018-03-31 14:30 | disposition home or self-care (01) | DRG 389 ==
LOC: NEPD 18:05 → NEDA 23:19 → HIMN 03-29 00:20
PROVIDERS: ADMIT Family Medicine; ATTEND Family Medicine
DX: K56.7 Ileus, unspecified (principal); E87.2 Acidosis; N17.9 Acute kidney failure, unspecified; I48.91 Unspecified atrial fibrillation; E86.0 Dehydration; J44.9 Chronic obstructive pulmonary disease, unspecified; I12.9 Hypertensive chronic kidney disease with stage 1 through stage 4 chronic kidney disease, or unspecified chronic kidney disease; F17.210 Nicotine dependence, cigarettes, uncomplicated; E78.5 Hyperlipidemia, unspecified; F43.10 Post-traumatic stress disorder, unspecified; H91.90 Unspecified hearing loss, unspecified ear; I25.10 Atherosclerotic heart disease of native coronary artery without angina pectoris; K21.9 Gastro-esophageal reflux disease without esophagitis; Z85.46 Personal history of malignant neoplasm of prostate; N18.3 Chronic kidney disease, stage 3 (moderate); Z86.73 Personal history of transient ischemic attack (TIA), and cerebral infarction without residual deficits; Z79.02 Long term (current) use of antithrombotics/antiplatelets; Z79.82 Long term (current) use of aspirin; Z98.61 Coronary angioplasty status; Z90.49 Acquired absence of other specified parts of digestive tract
CPT/HCPCS: 74174; 80048; 80053; 81001; 82948; 83605; 83690; 85025; 85027; 87040; 87641; 93005; 94150; 94640; 94667; 94668; 96361; 96365; 96372; 96375; C9113; J0744; J1644; J2270; J2543; J2550; J7030; Q9967

== ENCOUNTER 2018-10-03 16:41 | Observation (INO) ==
--- NOTE | 2018-10-03 17:37 | ED ---
HPI General Chief complaint: Respiratory Symptoms Stated complaint: Sob Time Seen by Provider: 10/03/18 16:48 Source: patient Mode of arrival: wheelchair Limitations: no limitations History of Present Illness HPI narrative: 78-year-old male who presents to the ED for evaluation of shortness of breath. Per patient he has had shortness of breath for the past 4 days. Per patient is getting worse. Per patient he has a history of COPD and as well as cardiac history. He also has a history of peripheral artery disease and continues to smoke. He states compliance with his medications including Eliquis which he takes per patient for A. fib. Per patient has a pacemaker in place and follows with cardiology from the [place] for this as well. He states that he used to use inhalers but no longer uses them. Denies any fevers chills or sweats. No cough or runny nose. No abdominal pain. He states having worsening symptoms when he ambulates. He is a walker to get about. No other complaints at this time. He does state having some chest pressure whenever he ambulates. But he reports some more shortness of breath and not really painful. Related Data Home Medications Medication Instructions Recorded Confirmed apixaban [Eliquis] 2.5 mg PO BID 10/03/18 10/03/18 lisinopril 5 mg PO DAILY 10/03/18 10/03/18 meclizine 25 mg PO TID 10/03/18 10/03/18 pantoprazole [Protonix] 40 mg PO BID 10/03/18 10/03/18 Allergies Allergy/AdvReac Type Severity Reaction Status Date / Time egg AdvReac Unknown cramping Verified 10/03/18 16:47 Poultry AdvReac Unknown Cramping Verified 10/03/18 16:47 Review of Systems ROS: all other systems reviewed are negative PMFSH History History Provided By: Patient Medical History Medical History Aortic aneurysm (Acute) Atrial fibrillation (Acute) COPD (chronic obstructive pulmonary disease) (Acute) DVT (deep venous thrombosis) (Acute) Emphysema of lung (Acute) Hyperlipidemia (Acute) Hypertension (Acute) PTSD (post-traumatic stress disorder) (Acute) Pacemaker (Acute) Peripheral arterial disease (Acute) Prostate CA (Acute) Stroke (Acute) Vertigo (Acute) Surgical History Surgical History H/O prostatectomy (Acute) History of colon resection (Acute) Social History Social History Substance History: No History of Abuse Second Hand Smoke Exposure: No Smoking Status: Current every day smoker Tobacco Type: Cigarettes Packs Per Day: 1 Cigarettes Per Day: 20.0 Years Smoked: 60 Pack-Years: 60.00 How Often Do You Have a Drink Containing Alcohol: Never Hx Recent Travel: No Recent Travel in [facility] within the Last 8 Weeks: No Recent Out of Country Travel within the Last 8 Weeks: No Exam Narrative Exam Narrative: GENERAL: Well appearing. SKIN: Focused skin assessment warm/dry. HEAD: Atraumatic. Normocephalic. EYES: Pupils equal and round. No scleral icterus. No injection or drainage. ENT: No nasal bleeding or discharge. Mucous membranes pink and moist. Tongue is midline. No uvula deviation. NECK: Trachea midline. No JVD. CARDIOVASCULAR: Regular rate and rhythm. No murmur appreciated. RESPIRATORY: No accessory muscle use. Minimal expiratory wheezing especially the lower lung pineda. Breath sounds equal bilaterally. GASTROINTESTINAL: Abdomen soft, non-tender, nondistended. Hepatic and splenic margins not palpable. MUSCULOSKELETAL: No obvious deformities. No clubbing. No cyanosis. No edema. Full range of motion of the upper and lower extremities bilaterally. 2+ pulses bilaterally. NEUROLOGICAL: Awake and alert. No obvious cranial nerve deficits. Motor grossly within normal limits. Normal speech. PSYCHIATRIC: Appropriate mood and affect; insight and judgment normal. Course Initial Documented Vital Signs Temperature 98.4 F 10/03/18 16:43 Pulse Rate 125 H 10/03/18 16:43 Respiratory Rate 22 10/03/18 16:43 Blood Pressure 118/83 10/03/18 16:43 Pulse Oximetry 98 10/03/18 16:43 Last Documented Vital Signs Temperature 97.2 F L 10/04/18 12:00 Pulse Rate 80 10/04/18 12:00 Respiratory Rate 18 10/04/18 12:00 Blood Pressure 156/79 H 10/04/18 12:00 Pulse Oximetry 96 10/04/18 12:00 Medical Decision Making ANUSHKA Attestation ANUSHKA supervised visit: Yes Attestation: I, Dr. Mercado, have reviewed the advance practice practitioner's documentation and am in agreement, met with the patient face to face, made the diagnosis, and the medical decision making was done by me. *My assessment and Findings: Patient is a 78 year old male who comes in complaining of shortness of breath. Exams show minimal wheezing. Patient observed on the ergonomic specialist and found to be having runs of PVCs, becoming more and more frequent. His pacemaker was interrogated and showed significant amount of PVCs. Patient started on amiodarone. Admitted for further management. MDM Narrative Medical decision making narrative: 78-year-old male who presents to the ED for evaluation of shortness of breath. Patient was properly examined and was found to have signs and symptoms consistent with shortness of breath. Unclear etiology at this time. Labs and imaging were ordered. Labs and imaging showed no sign of acute disease. Patient was given 1 breathing treatment with improvement of the wheezing. Patient did have episodes where she he was throwing multiple PVCs. Currently he is not. We did have the pacemaker interrogated. Pacemaker interrogation did not show any sign of disease other than significant amount of PVCs but no other arrhythmias otherwise. Pacemaker interrogation did not show any sign of disease other than significant amount of PVCs. This was discussed with my attending Dr Mercado who recommended patient start amiodarone. Patient currently asymptomatic and in telemetry has no PVCs whatsoever. He is being paced. This was withhold for now after speaking with my attending Dr Castle who took over from Dr Mercado. Patient states for the most part feeling better. Cannot complete rule out heart disease secondary to the patient's symptoms. Recommendation at this time is for admission for further evaluation and treatment. Patient agrees with this. Patient was admitted to the chest pain center for further evaluation and treatment. My attending agrees with plan. Medical Screen Exam Complete: Yes Emergency Medical Condition: Yes Differential Diagnosis Differential Diagnosis: Chest pain versus typical chest pain versus ACS versus COPD versus CHF Medical Records Medical records reviewed: Yes I reviewed the patient's medical records. Lab Data Lab results reviewed: Yes I reviewed the patient's lab results. Result diagrams: 10/03/18 17:28 10/03/18 17: Lab Results 10/03/18 10/03/18 10/03/18 Range/Units 17:28 17: 17:28 WBC 5.2 (4.0-11.0) th/mm3 RBC 3.80 L (4.50-5.90) mil/mm3 Hgb 12.3 L (13.0-17.0) gm/dL Hct 37.0 L (39.0-51.0) % MCV 97.4 (80.0-100.0) fL MCH 32.5 (27.0-34.0) pg MCHC 33.3 (32.0-36.0) % RDW 14.4 (11.6-17.2) % Plt Count 126 L (150-450) th/mm3 MPV 9.2 (7.0-11.0) fL Neut % (Auto) 73.9 H (16.0-70.0) % Lymph % (Auto) 9.1 (9.0-44.0) % [place] % (Auto) 14.0 H (0.0-8.0) % Eos % (Auto) 2.2 (0.0-4.0) % Baso % (Auto) 0.8 (0.0-2.0) % Neut # (Auto) 3.8 (1.8-7.7) th/mm3 Lymph # (Auto) 0.5 L (1.0-4.8) th/mm3 [place] # (Auto) 0.7 (0.0-0.9) th/mm3 Eos # (Auto) 0.1 (0.0-0.4) th/mm3 Baso # (Auto) 0.0 (0.0-0.2) th/mm3 WBC Differential . Differential Comment Auto diff final PT 11.2 (9.8-11.6) sec INR 1.1 Ratio APTT 32.7 H (23.4-31.7) sec Sodium 141 (136-145) meq/L Potassium 3.9 (3.5-5.1) meq/L Chloride 107 (98-107) meq/L Carbon Dioxide 25.6 (21.0-32.0) meq/L Anion Gap 8 (5-15) meq/L BUN 16 (7-18) mg/dL Creatinine 1.65 H (0.60-1.30) mg/dL Estimated GFR 40 L (>89) mL/min Random Glucose 95 (74-106) mg/dL Calcium 8.3 L (8.5-10.1) mg/dL Total Bilirubin 0.4 (0.2-1.0) mg/dL AST 21 (15-37) U/L ALT 18 (12-78) U/L Alkaline Phosphatase 99 (45-117) U/L Total Creatine Kinase 157 (39-308) U/L CK-MB (CK-2) 1.8 (0.5-3.6) ng/mL Troponin I 0.04 (0.02-0.05) ng/mL B-Natriuretic Peptide (0-100) pg/mL Total Protein 6.8 (6.4-8.2) g/dL Albumin 3.3 L (3.4-5.0) g/dL 10/03/18 10/03/18 10/04/18 Range/Units 17:28 21:15 00:45 WBC (4.0-11.0) th/mm3 RBC (4.50-5.90) mil/mm3 Hgb (13.0-17.0) gm/dL Hct (39.0-51.0) % MCV (80.0-100.0) fL MCH (27.0-34.0) pg MCHC (32.0-36.0) % RDW (11.6-17.2) % Plt Count (150-450) th/mm3 MPV (7.0-11.0) fL Neut % (Auto) (16.0-70.0) % Lymph % (Auto) (9.0-44.0) % [place] % (Auto) (0.0-8.0) % Eos % (Auto) (0.0-4.0) % Baso % (Auto) (0.0-2.0) % Neut # (Auto) (1.8-7.7) th/mm3 Lymph # (Auto) (1.0-4.8) th/mm3 [place] # (Auto) (0.0-0.9) th/mm3 Eos # (Auto) (0.0-0.4) th/mm3 Baso # (Auto) (0.0-0.2) th/mm3 WBC Differential Differential Comment PT (9.8-11.6) sec INR Ratio APTT (23.4-31.7) sec Sodium (136-145) meq/L Potassium (3.5-5.1) meq/L Chloride (98-107) meq/L Carbon Dioxide (21.0-32.0) meq/L Anion Gap (5-15) meq/L BUN (7-18) mg/dL Creatinine (0.60-1.30) mg/dL Estimated GFR (>89) mL/min Random Glucose (74-106) mg/dL Calcium (8.5-10.1) mg/dL Total Bilirubin (0.2-1.0) mg/dL AST (15-37) U/L ALT (12-78) U/L Alkaline Phosphatase (45-117) U/L Total Creatine Kinase 98 152 (39-308) U/L CK-MB (CK-2) (0.5-3.6) ng/mL Troponin I 0.05 0.04 (0.02-0.05) ng/mL B-Natriuretic Peptide 349 H (0-100) pg/mL Total Protein (6.4-8.2) g/dL Albumin (3.4-5.0) g/dL Imaging Data Attestation: I personally reviewed and interpreted this imaging study as follows : Radiologist's impression: Chest X-Ray 10/03/18 16:55 CONCLUSION: No acute cardiopulmonary findings. ECG Data Attestation: I personally reviewed and interpreted this ECG as follows: Interpretation: EKG shows paced rhythm with few PVCs on the EKG. No obvious sign of ischemia read by me and attending. Ventricular rate 71 bpm, MD interval of 205 ms Discharge Plan Discharge Disposition Patient Disposition: ED Admit(ED Internal Use Only) Discharge Condition Condition: Stable Discharge Order Discharge Orders: Discharge Order (Routine); Ordered 10/04/18 Ordered By: Isabelle Martinez ED Use Only Admit Order (Routine); Ordered 10/03/18 Ordered By: Devyn Gross Discharge Details Discharge Comment: Continue all home medications as previously instructed and all your home medications may not be reflected below. Diagnosis: Chest pain, rule out acute myocardial infarction Physicians Team ED Provider: Miguel Angel Villarreal ED Midlevel Provider: Devyn Gross Primary Care Provider: [facility],Physician 's Attending Provider: Willow Johnson ED Status: Left Department Discharge Information Discharge Date/Time: 10/03/18 21:55
--- NOTE | 2018-10-03 17:42 | XR ---
EXAM DATE: 10/03/2018 5:39 PM EST AGE/SEX: 78 years / Male INDICATIONS: Short of breath. CLINICAL DATA: This is the patient's initial encounter. Patient reports that signs and symptoms have been present for 3 days and indicates a pain score of 0/10. MEDICAL/SURGICAL HISTORY: Chronic obstructive pulmonary disease. A-fib. Pacemaker. COMPARISON: [facility] [place], CTA RUNOFF W CONTRAST W 3D, 09/02/2018. . FINDINGS: A single AP view of the chest demonstrates the lungs to be symmetrically aerated without evidence of mass, focal consolidation, or effusion. Linear atelectasis/scarring in the medial right lung base. Th e cardiomediastinal contours are unremarkable. Left chest pacemaker. Degenerative changes of the spin e and shoulders. CONCLUSION: No acute cardiopulmonary findings. Electronically signed by: Kim Harvey MD Board Certified Radiologist 10/03/2018 5:40 PM EST
[2018-10-03 17:47] LABS: Baso % (Auto) 0.8 % (0.0-2.0); Eos # (Auto) 0.1 th/mm3 (0.0-0.4); Eos % (Auto) 2.2 % (0.0-4.0); Hemoglobin 12.3 gm/dL (13.0-17.0); Lymph # (Auto) 0.5 th/mm3 (1.0-4.8); Lymph % (Auto) 9.1 % (9.0-44.0); Mean Corpuscular HGB Conc 33.3 % (32.0-36.0); Mean Corpuscular Hemoglobin 32.5 pg (27.0-34.0); Mean Corpuscular Volume 97.4 fL (80.0-100.0); Mean Platelet Volume 9.2 fL (7.0-11.0); Mono # (Auto) 0.7 th/mm3 (0.0-0.9); Neut # (Auto) 3.8 th/mm3 (1.8-7.7); Neut % (Auto) 73.9 % (16.0-70.0); Platelet Count 126 th/mm3 (150-450); Red Cell Distribution Width 14.4 % (11.6-17.2); White Blood Count 5.2 th/mm3 (4.0-11.0)
[2018-10-03 17:56] LABS: Activated Partial Thrombo Time 32.7 sec (23.4-31.7); INR 1.1 Ratio; Prothrombin Time 11.2 sec (9.8-11.6)
[2018-10-03 18:19] LABS: Albumin 3.3 g/dL (3.4-5.0); Anion Gap 8 meq/L (5-15); Aspartate Aminotransferase 21 U/L (15-37); Blood Urea Nitrogen 16 mg/dL (7-18); Calcium 8.3 mg/dL (8.5-10.1); Carbon Dioxide 25.6 meq/L (21.0-32.0); Chloride 107 meq/L (98-107); Glomerular Filtration Rate 40 mL/min (>89); Glucose,Random 95 mg/dL (74-106); Potassium 3.9 meq/L (3.5-5.1); Sodium 141 meq/L (136-145)
[2018-10-03 18:24] LABS: Alanine Aminotransferase 18 U/L (12-78); Alkaline Phosphatase 99 U/L (45-117); Creatine Kinase 157 U/L (39-308); Total Protein 6.8 g/dL (6.4-8.2); Troponin I 0.04 ng/mL (0.02-0.05)
[2018-10-03 18:37] LABS: Creatine Kinase MB 1.8 ng/mL (0.5-3.6)
[2018-10-03] MEDS ORDERED: Amiodarone Inj 150 MG in Dextrose 5% in Water Inj 97 ML IV.SIG ONE ×2 (19:21)
[2018-10-03] MEDS ORDERED: Acetaminophen 500 MG Tablet PO PRN (20:12)
[2018-10-03 22:06] LABS: Troponin I 0.05 ng/mL (0.02-0.05)
[2018-10-04 01:25] LABS: Troponin I 0.04 ng/mL (0.02-0.05)
--- NOTE | 2018-10-04 09:17 | P.HPCA ---
History of Present Illness Primary Care Physician: [facility] Chief Complaint: Dyspnea History of Present Illness: 78 year old male with history of COPD, hypertension, A. fib on anticoagulation, CVA, pacemaker, hyperlipidemia, x2 "stents in my legs and 1 in my aorta," and lifelong smoker presents the emergency room for further evaluation dyspnea. Onset 1 week. During day hours dyspnea may last hours without any precipitating or relieving factors. Last few evenings does awaken early in the morning gasping for breath, recovery often takes "a long time." Denies chest pain/ discomfort during episodes. Also over the last week describes malaise, insomnia , intermittent dizziness, intermittent headache, nonproductive cough, and obsessional wheezing. Believes a couple of days ago he may have had a fever. Reports history of COPD and emphysema, been prescribed inhalers in the past although endorses stopped taking inhalers many years ago. Continues to smoke 1 pack/daily. Denies any known CAD, past myocardial infarctions, or cardiac stents. Follows with [facility] and [place] [facility]. Not recall any recent cardiac testing. Apparently last year was admitted to [facility] for syncopal episode and recalls possible cardiac testing or cardiac catheterization during that time. Does not follow with a tube worker. His pacemaker placed in 2011 due to lower chambers of heart not working together, denies pacer also being AICD. Pacemaker checked 10 days ago and told EF improved to 50%. Denies recent swelling, weight gain, or history of CHF. Past cardiac testing Does not recall any recent cardiac stress testing. Follows with [facility] at [facility]. Reports being told his cardiac arteries are okay, but reports x stents lower extremities and x1 stent placed to aorta. Social history Known hypertension and hyperlipidemia. Denies known coronary artery disease or diabetes. Lifelong smoker, currently smokes 1 pack daily. Denies alcohol use. Family history Noncontributory for early onset cardiovascular disease. - Diagnosis (1) Dyspnea (2) Hypertension (3) Atrial fibrillation (4) COPD (chronic obstructive pulmonary disease) (5) Tobacco use (6) Renal insufficiency Review of Systems All other systems reviewed negative except as stated in HPI [facility] - History History Provided By: Patient - Medical History Medical History: Medical History (Last Updated 10/04/18 @ 09:40 by DIETER Onofre) Atrial fibrillation COPD (chronic obstructive pulmonary disease) DVT (deep venous thrombosis) Emphysema of lung Hyperlipidemia Hypertension PTSD (post-traumatic stress disorder) Peripheral arterial disease Prostate CA Vertigo Aortic aneurysm Pacemaker Stroke - Surgical History Surgical History: Surgical History (Last Updated 10/04/18 @ 09:40 by DIETER Onofre) H/O prostatectomy History of colon resection - Social History I have reviewed the patient's Social History: Yes - Tobacco History Second Hand Smoke Exposure: No Tobacco Use In Past 30 Days: Yes Smoking Status: Current every day smoker Tobacco Type: Cigarettes Packs Per Day: 1 Years Smoked: 60 - Alcohol History How Often Do You Have a Drink Containing Alcohol: Never - Substance Use History Substance History: No History of Abuse - Travel History History of Recent Travel: No Recent Travel in the [place] Within the Last 8 Weeks: No Recent Travel Out of the Country Within the Last 8 Weeks: No - Immunization History Tetanus Immunization: <5 Years Medications and Allergies Active Medications: Active Medications Acetaminophen (Tylenol) 500 mg PO Q4H PRN PRN Reason: HEADACHE Hydrocodone Bitart/Acetaminophen ([place] 7.5/325) 1 tab PO Q4H PRN PRN Reason: PAIN SCALE 1 TO 7 Sodium Chloride (Ns Flush) 2 ml IV.FLUSH BID [facility] Last Admin: 10/03/18 21:17 Dose: 2 ml Sodium Chloride (Ns Flush) 2 ml IV.FLUSH PRN PRN PRN Reason: FLUSH AFTER USING IV ACCESS Allergies Allergy/AdvReac Type Severity Reaction Status Date / Time egg AdvReac Unknown cramping Verified 10/03/18 16:47 Poultry AdvReac Unknown Cramping Verified 10/03/18 16:47 Home Medications Medication Instructions Recorded Confirmed Type apixaban [Eliquis] 2.5 mg PO BID 10/03/18 10/03/18 History lisinopril 5 mg PO DAILY 10/03/18 10/03/18 History meclizine 25 mg PO TID 10/03/18 10/03/18 History pantoprazole [Protonix] 40 mg PO BID 10/03/18 10/03/18 History Exam Vital signs: Vital Signs 10/03/18 16:43 10/03/18 16:46 10/03/18 17:03 Temperature 98.4 F Pulse Rate 125 H 75 68 Respiratory Rate 22 18 18 Blood Pressure 118/83 131/69 Pulse Oximetry 98 98 12/28/18 19:08 10/03/18 21:26 10/03/18 22:15 Temperature 98.2 F 99.6 F Pulse Rate 65 71 86 Respiratory Rate 15 20 18 Blood Pressure 131/69 122/72 146/78 H Pulse Oximetry 96 96 10/04/18 04:00 10/04/18 07:20 Temperature 98.5 F 98.3 F Pulse Rate 56 L 64 Respiratory Rate 16 18 Blood Pressure 189/77 H 133/77 Pulse Oximetry 95 97 Intake & Output 10/03/18 10/04/18 10/04/18 18:59 06:59 18:59 Intake Total 0 / 0 Balance 0 / 0 Weight 70.307 kg 70.307 kg Intake: Oral 0 / 0 Other: # Voids 2 Date of Last Bowel Movement 10/03/18 Weight On Admission 70.307 kg Narrative: GENERAL: Alert WN, WD, NAD, pleasant, elderly male, appears chronically ill HEAD: NC, AT EYES: Sclera clear CV: RRR, without murmur, rub, gallop. Left anterior chest pacemaker palpated. No carotid bruits. Chest wall nontender. RESP: Extremely diminished lungs throughout bilateral, without wheeze or rhonchi. No crackles, wheeze, rhonchi, symmetrical chest rise, nonlabored, able to speak in full sentences ABD: Soft, NT, ND, no masses, positive bowel tones, lower abdominal surgical scar EXT: Pulses +1x4, no dependent edema MS: Normal tone x4 extremities, nontender, no obvious deformities, full range of motion NEURO: Right lower extremity slightly weaker than left side. No gross motor strength difference of upper extremities. PSYCH: A+O x3, pleasant affect, appropriate speech, mood, insight and judgment SKIN: Normal turgor, normal texture, sluggish cap refill, discolored fingertips , decreased lower extremity hair distribution Results 10/03/18 17:28 10/03/18 17:28 Cardiac Enzymes 10/03/18 10/03/18 10/03/18 Range/Units 17:28 17:28 21:15 AST 21 (15-37) U/L CK-MB (CK-2) 1.8 (0.5-3.6) ng/mL Troponin I 0.04 0.05 (0.02-0.05) ng/mL B-Natriuretic Peptide 349 H (0-100) pg/mL 10/04/18 Range/Units 00:45 AST (15-37) U/L CK-MB (CK-2) (0.5-3.6) ng/mL Troponin I 0.04 (0.02-0.05) ng/mL B-Natriuretic Peptide (0-100) pg/mL Coagulation 10/03/18 10/03/18 Range/Units 17:28 17:28 PT 11.2 (9.8-11.6) sec APTT 32.7 H (23.4-31.7) sec B-Natriuretic Peptide 349 H (0-100) pg/mL CBC 10/03/18 Range/Units 17:28 WBC 5.2 (4.0-11.0) th/mm3 RBC 3.80 L (4.50-5.90) mil/mm3 Hgb 12.3 L (13.0-17.0) gm/dL Hct 37.0 L (39.0-51.0) % Plt Count 126 L (150-450) th/mm3 Neut # (Auto) 3.8 (1.8-7.7) th/mm3 Lymph # (Auto) 0.5 L (1.0-4.8) th/mm3 [place] # (Auto) 0.7 (0.0-0.9) th/mm3 Eos # (Auto) 0.1 (0.0-0.4) th/mm3 Baso # (Auto) 0.0 (0.0-0.2) th/mm3 Comprehensive Metabolic Panel 10/03/18 Range/Units 17:28 Sodium 141 (136-145) meq/L Potassium 3.9 (3.5-5.1) meq/L Chloride 107 (98-107) meq/L Carbon Dioxide 25.6 (21.0-32.0) meq/L BUN 16 (7-18) mg/dL Creatinine 1.65 H (0.60-1.30) mg/dL Calcium 8.3 L (8.5-10.1) mg/dL AST 21 (15-37) U/L ALT 18 (12-78) U/L Alkaline Phosphatase 99 (45-117) U/L Total Protein 6.8 (6.4-8.2) g/dL Albumin 3.3 L (3.4-5.0) g/dL Intake and Output 10/03/18 10/04/18 10/04/18 22:59 06:59 14:59 Intake Total 0 / 0 Balance 0 / 0 Intake: Oral 0 / 0 Other: # Voids 2 Date of Last Bowel Movement 10/03/18 10/03/18 Weight 70.307 kg 70.307 kg Weight On Admission 70.307 kg - Imaging and Cardiology Imaging: Impressions Chest X-Ray 10/03/18 16:55 CONCLUSION: No acute cardiopulmonary findings. EKG interpretations - ND, pacemaker, normal Pacemaker: normal AV synchronous pacing (both Atrial and ventricar pacing, with intermittent atril sensing, other times ventricular sensing, PVCs) Caprini VTE Risk Assessment Caprini VTE Risk Assessment: Moderate/High Risk (score >= 2) (taking eliquis) Caprini Risk Assessment Model: Point Value = 1 Point Value = 2 Point Value = 3 Point Value = 5 Age 41-60 Minor surgery BMI > 25 kg/m2 Swollen legs Varicose veins or History of unexplained or recurrent spontaneous Oral contraceptives or hormone replacement Sepsis (< 1 month) Serious lung disease, including pneumonia (< 1 month) Abnormal pulmonary function Acute myocardial infarction Congestive heart failure (< 1 month) History of inflammatory bowel disease Medical patient at bed rest Age 61-74 Arthroscopic surgery Major open surgery (> 45 min) Laparoscopic surgery (> 45 min) Malignancy Confined to bed (> 72 hours) Immobilizing plaster cast Central venous access Age >= 75 History of VTE Family history of VTE Factor V Leiden Prothrombin [id number] Lupus anticoagulant Anticardiolipin antibodies Elevated serum homocysteine Heparin-induced thrombocytopenia Other congenital or acquired thrombophilia Stroke (< 1 month) Elective arthroplasty Hip, pelvis, or leg fracture Acute spinal cord injury (< 1 month) Prophylaxis Regimen: Total Risk Factor Score Risk Level Prophylaxis Regimen 0-1 Low Early ambulation 2 Moderate Order ONE of the following: *Sequential Compression Device (SCD) *Heparin 5000 units SQ BID 3-4 Higher Order ONE of the following medications: *Heparin 5000 units SQ TID *Enoxaparin/Lovenox 40 mg SQ daily (WT < 150 kg, CrCl > 30 mL/min) *Enoxaparin/Lovenox 30 mg SQ daily (WT < 150 kg, CrCl > 10-29 mL/min) *Enoxaparin/Lovenox 30 mg SQ BID (WT < 150 kg, CrCl > 30 mL/min) AND/OR *Sequential Compression Device (SCD) 5 or more Highest Order ONE of the following medications: *Heparin 5000 units SQ TID (Preferred with Epidurals) *Enoxaparin/Lovenox 40 mg SQ daily (WT < 150 kg, CrCl > 30 mL/min) *Enoxaparin/Lovenox 30 mg SQ daily (WT < 150 kg, CrCl > 10-29 mL/min) *Enoxaparin/Lovenox 30 mg SQ BID (WT < 150 kg, CrCl > 30 mL/min) AND *Sequential Compression Device (SCD) Assessment and Plan - Assessment (1) Dyspnea Code(s): R06.00 - Dyspnea, unspecified Status: Acute Plan: Chest pain center. ACS ruled out with 3 sets of EKGs and cardiac enzymes. Will be seen and evaluated by Dr. Emilio Kyle. Patient does not recall any recent cardiac stress testing. Dyspnea likely related history of smoking and known COPD, however could certainly be an angina equivalent. Discussed possible cardiac testing later this morning. No wheezing at this time. Albuterol every 2 hours as needed as needed for shortness of breath/wheezing. Concern for possible orthopedia discussed as well. (2) Hypertension Code(s): I10 - Essential (primary) hypertension Status: Chronic Plan: Continue lisinopril. Continue to monitor. (3) Atrial fibrillation Code(s): I48.91 - Unspecified atrial fibrillation Status: Chronic Plan: Continue Eliquis. (4) COPD (chronic obstructive pulmonary disease) Code(s): J44.9 - Chronic obstructive pulmonary disease, unspecified Status: Chronic Plan: Strongly encouraged smoking cessation, establishing with a tube worker, and use of daily inhalers. Discussed further pulmonary function testing recommended on outpatient basis. (5) Tobacco use Code(s): Z72.0 - Tobacco use Status: Chronic Plan: Strongly encouraged and stressed the importance of tobacco cessation. Instructed to quit smoking. (6) Renal insufficiency Code(s): N28.9 - Disorder of kidney and ureter, unspecified Status: Acute Plan: Follow up with primary care provider. H&P: Quality - VTE Deep Vein Thrombosis/Pulmonary Embolism Present on Admission: No (1) Dyspnea Qualifiers: Qualified Code(s): R06.00 - Dyspnea, unspecified (2) Hypertension Qualifiers: Qualified Code(s): I10 - Essential (primary) hypertension (3) Atrial fibrillation Qualifiers: Qualified Code(s): I48.2 - Chronic atrial fibrillation (4) COPD (chronic obstructive pulmonary disease) Qualifiers: Qualified Code(s): J43.9 - Emphysema, unspecified
[2018-10-04] MEDS ORDERED: Lisinopril 5 MG Tablet PO SCH (10:00)
--- NOTE | 2018-10-04 13:41 | P.PNCA ---
Subjective Interval history: 78-year-old [place] patient presents to the emergency room because he is short of breath. History is obtained it is that he has been increasingly short of breath over the last month but over the last week or so this is become much more so. He cannot take flu vaccine may have been exposed recently and although he has few symptoms he did have a bit of a fever one night. He also has chronic atrial fibrillation with a pacemaker and is on Eliquis. He has known peripheral vascular disease and a stent in his aorta but no known coronary disease. He had a CVA about 6 months ago involving his right side. His shortness of breath seems to have been worse since that time but probably because he is requiring more effort to move around and do things. He also has known lactose intolerance and in spite of that continues to drink large quantities of and does admit that some of the chest discomfort he has had currently may be due to that. He also continues to smoke a pack a day in spite of his relatively end-stage COPD. He is currently ruled out for acute coronary syndrome with EKGs and enzymes and is having no more chest pain at this time. In essence he let me know that his main reason for coming was to see if he can get home oxygen. I explained to him that we could not provide this for him and that he needs to return to the [place] Saturday and discuss the situation with them. Fact that he will absolutely have to stop smoking. Medications and Allergies Active Medications: Active Medications Acetaminophen (Tylenol) 500 mg PO Q4H PRN PRN Reason: HEADACHE Hydrocodone Bitart/Acetaminophen ([place] 7.5/325) 1 tab PO Q4H PRN PRN Reason: PAIN SCALE 1 TO 7 Albuterol (Albuterol Neb (Prn)) 1.25 mg NEB Q2HR NEB PRN PRN Reason: SHORTNESS OF BREATH/WHEEZING Apixaban (Eliquis) 2.5 mg PO BID [facility] Last Admin: 10/04/18 10:02 Dose: 2.5 mg Lisinopril (Prinivil) 5 mg PO DAILY [facility] Last Admin: 10/04/18 10:03 Dose: 5 mg Pantoprazole Sodium (Protonix) 40 mg PO BID [facility] Last Admin: 10/04/18 10:02 Dose: 40 mg Sodium Chloride (Ns Flush) 2 ml IV.FLUSH BID [facility] Last Admin: 10/04/18 10:03 Dose: 2 ml Sodium Chloride (Ns Flush) 2 ml IV.FLUSH PRN PRN PRN Reason: FLUSH AFTER USING IV ACCESS Allergies Allergy/AdvReac Type Severity Reaction Status Date / Time egg AdvReac Unknown cramping Verified 10/03/18 16:47 Poultry AdvReac Unknown Cramping Verified 10/03/18 16:47 Home Medications Medication Instructions Recorded Confirmed Type apixaban [Eliquis] 2.5 mg PO BID 10/03/18 10/03/18 History lisinopril 5 mg PO DAILY 10/03/18 10/03/18 History meclizine 25 mg PO TID 10/03/18 10/03/18 History pantoprazole [Protonix] 40 mg PO BID 10/03/18 10/03/18 History Physical Exam Vital signs: Vital Signs 10/03/18 16:43 10/03/18 16:46 10/03/18 17:03 Temperature 98.4 F Pulse Rate 125 H 75 68 Respiratory Rate 22 18 18 Blood Pressure 118/83 131/69 Pulse Oximetry 98 98 10/03/18 19:08 10/03/18 21:26 10/03/18 22:15 Temperature 98.2 F 99.6 F Pulse Rate 65 71 86 Respiratory Rate 15 20 18 Blood Pressure 131/69 122/72 146/78 H Pulse Oximetry 96 96 10/04/18 04:00 10/04/18 07:20 10/04/18 08:00 Temperature 98.5 F 98.3 F Pulse Rate 56 L 64 69 Respiratory Rate 16 18 Blood Pressure 189/77 H 133/77 Pulse Oximetry 95 97 10/04/18 12:00 Temperature 97.2 F L Pulse Rate 80 Respiratory Rate 18 Blood Pressure 156/79 H Pulse Oximetry 96 Intake & Output 10/03/18 10/04/18 10/04/18 18:59 06:59 18:59 Intake Total 0 / 0 Balance 0 / 0 Weight 70.307 kg 70.307 kg Intake: Oral 0 / 0 Other: # Voids 2 Date of Last Bowel Movement 10/03/18 Weight On Admission 70.307 kg Results 10/03/18 17:28 10/03/18 17:28 Cardiac Enzymes 10/03/18 10/03/18 10/03/18 Range/Units 17:28 17:28 21:15 AST 21 (15-37) U/L CK-MB (CK-2) 1.8 (0.5-3.6) ng/mL Troponin I 0.04 0.05 (0.02-0.05) ng/mL B-Natriuretic Peptide 349 H (0-100) pg/mL 10/04/18 Range/Units 00:45 AST (15-37) U/L CK-MB (CK-2) (0.5-3.6) ng/mL Troponin I 0.04 (0.02-0.05) ng/mL B-Natriuretic Peptide (0-100) pg/mL Coagulation 10/03/18 10/03/18 Range/Units 17:28 17:28 PT 11.2 (9.8-11.6) sec APTT 32.7 H (23.4-31.7) sec B-Natriuretic Peptide 349 H (0-100) pg/mL CBC 10/03/18 Range/Units 17:28 WBC 5.2 (4.0-11.0) th/mm3 RBC 3.80 L (4.50-5.90) mil/mm3 Hgb 12.3 L (13.0-17.0) gm/dL Hct 37.0 L (39.0-51.0) % Plt Count 126 L (150-450) th/mm3 Neut # (Auto) 3.8 (1.8-7.7) th/mm3 Lymph # (Auto) 0.5 L (1.0-4.8) th/mm3 [place] # (Auto) 0.7 (0.0-0.9) th/mm3 Eos # (Auto) 0.1 (0.0-0.4) th/mm3 Baso # (Auto) 0.0 (0.0-0.2) th/mm3 Comprehensive Metabolic Panel 10/03/18 Range/Units 17:28 Sodium 141 (136-145) meq/L Potassium 3.9 (3.5-5.1) meq/L Chloride 107 (98-107) meq/L Carbon Dioxide 25.6 (21.0-32.0) meq/L BUN 16 (7-18) mg/dL Creatinine 1.65 H (0.60-1.30) mg/dL Calcium 8.3 L (8.5-10.1) mg/dL AST 21 (15-37) U/L ALT 18 (12-78) U/L Alkaline Phosphatase 99 (45-117) U/L Total Protein 6.8 (6.4-8.2) g/dL Albumin 3.3 L (3.4-5.0) g/dL Intake and Output 10/03/18 10/04/18 10/04/18 22:59 06:59 14:59 Intake Total 0 / 0 Balance 0 / 0 Intake: Oral 0 / 0 Other: # Voids 2 Date of Last Bowel Movement 10/03/18 10/03/18 Weight 70.307 kg 70.307 kg Weight On Admission 70.307 kg - Imaging and Cardiology Imaging: Impressions Chest X-Ray 10/03/18 16:55 CONCLUSION: No acute cardiopulmonary findings. Assessment and Plan - Assessment (1) Dyspnea Code(s): R06.00 - Dyspnea, unspecified Status: Acute Plan: Chest pain center. ACS ruled out with 3 sets of EKGs and cardiac enzymes. Will be seen and evaluated by Dr. Emilio Kyle. Patient does not recall any recent cardiac stress testing. Dyspnea likely related history of smoking and known COPD, however could certainly be an angina equivalent. Discussed possible cardiac testing later this morning. No wheezing at this time. Albuterol every 2 hours as needed as needed for shortness of breath/wheezing. Concern for possible orthopedia discussed as well. (2) Hypertension Code(s): I10 - Essential (primary) hypertension Status: Chronic Plan: Continue lisinopril. Continue to monitor. (3) Atrial fibrillation Code(s): I48.91 - Unspecified atrial fibrillation Status: Chronic Plan: Continue Eliquis. (4) COPD (chronic obstructive pulmonary disease) Code(s): J44.9 - Chronic obstructive pulmonary disease, unspecified Status: Chronic Plan: Strongly encouraged smoking cessation, establishing with a earth moving technician, and use of daily inhalers. Discussed further pulmonary function testing recommended on outpatient basis. (5) Tobacco use Code(s): Z72.0 - Tobacco use Status: Chronic Plan: Strongly encouraged and stressed the importance of tobacco cessation. Instructed to quit smoking. (6) Renal insufficiency Code(s): N28.9 - Disorder of kidney and ureter, unspecified Status: Acute (1) Dyspnea Qualifiers: Dyspnea type: unspecified Qualified Code(s): R06.00 - Dyspnea, unspecified (2) Hypertension Qualifiers: Hypertension type: unspecified Qualified Code(s): I10 - Essential (primary) hypertension (3) Atrial fibrillation Qualifiers: Atrial fibrillation type: chronic Qualified Code(s): I48.2 - Chronic atrial fibrillation (4) COPD (chronic obstructive pulmonary disease) Qualifiers: Emphysema type: unspecified
--- NOTE | 2018-10-04 14:13 | ECG ---
Date Performed: 10/04/2018 Time Performed: 00:14:12 PTAGE: 78 years EKG: ELECTRONIC VENTRICULAR PACEMAKER ABNORMAL RHYTHM ECG Pacer appears to be sensing and captur ing appropriately with occasional escape beat NO PREVIOUS TRACING DOCTOR: Emilio Kyle Interpretating Date/Time 10/04/2018 14:12:33
--- NOTE | 2018-10-04 14:16 | ECG ---
Date Performed: 10/03/2018 Time Performed: 21:29:09 PTAGE: 78 years EKG: ELECTRONIC ATRIAL PACEMAKER NONSPECIFIC T-WAVE ABNORMALITY ABNORMAL RHYTHM ECG No significa nt change PREVIOUS TRACING : 10/03/2018 16.55 DOCTOR: Emilio Kyle Interpretating Date/Time 10/04/2018 14:15:02
--- NOTE | 2018-10-04 14:17 | ECG ---
Date Performed: 10/03/2018 Time Performed: 17:41:16 PTAGE: 78 years EKG: ELECTRONIC VENTRICULAR PACEMAKER ABNORMAL RHYTHM ECG INTERPRETATION BASED ON A DEFAULT AGE OF 39 YEARS No significant change NO PREVIOUS TRACING DOCTOR: Emilio Kyle Interpretating Date/Time 10/04/2018 14:16:36
--- NOTE | 2018-10-04 14:18 | ECG ---
Date Performed: 10/03/2018 Time Performed: 16:55:14 PTAGE: 78 years EKG: ELECTRONIC ATRIAL PACEMAKER NONSPECIFIC ST & T-WAVE ABNORMALITY ABNORMAL RHYTHM ECG INTERPR ETATION BASED ON A DEFAULT AGE OF 40 YEARS No significant change PREVIOUS TRACING : 09/02/2018 21.35 DOCTOR: Emilio Kyle Interpretating Date/Time 10/04/2018 14:17:48
== END 2018-10-04 14:35 | disposition home or self-care (01) ==
LOC: NEDA 16:41 → NEPC 16:41 → NEPHCDU 21:38
PROVIDERS: ADMIT Internal Medicine Interventional Cardiology; ATTEND Internal Medicine Interventional Cardiology
CPT/HCPCS: 71010; 71045; 80053; 82550; 82552; 83520; 83880; 84484; 85025; 85610; 85730; 93005; 94664; 99285; G0378

== ENCOUNTER 2018-11-28 12:28 | Inpatient (IN) ==
[2018-11-28] MEDS ORDERED: Sod Chloride 0.9% Inj 1,000 ML IV.SIG ONE (20:27)
[2018-11-28 21:02] LABS: Baso # (Auto) 0.1 th/mm3 (0.0-0.2); Eos # (Auto) 0.3 th/mm3 (0.0-0.4); Eos % (Auto) 3.9 % (0.0-4.0); Hematocrit 42.3 % (39.0-51.0); Hemoglobin 14.4 gm/dL (13.0-17.0); Lymph # (Auto) 1.2 th/mm3 (1.0-4.8); Lymph % (Auto) 14.8 % (9.0-44.0); Mean Corpuscular Hemoglobin 32.6 pg (27.0-34.0); Mean Platelet Volume 9.4 fL (7.0-11.0); Mono # (Auto) 0.7 th/mm3 (0.0-0.9); Mono % (Auto) 8.2 % (0.0-8.0); Neut # (Auto) 5.9 th/mm3 (1.8-7.7); Neut % (Auto) 72.1 % (16.0-70.0); Platelet Count 153 th/mm3 (150-450); Red Blood Count 4.41 mil/mm3 (4.50-5.90); Red Cell Distribution Width 14.4 % (11.6-17.2); White Blood Count 8.2 th/mm3 (4.0-11.0)
[2018-11-28 21:26] LABS: Anion Gap 12 meq/L (5-15); Aspartate Aminotransferase 22 U/L (15-37); Blood Urea Nitrogen 28 mg/dL (7-18); Calcium 9.2 mg/dL (8.5-10.1); Carbon Dioxide 20.6 meq/L (21.0-32.0); Chloride 109 meq/L (98-107); Glomerular Filtration Rate 38 mL/min (>89); Glucose,Random 78 mg/dL (74-106); Magnesium 2.1 mg/dL (1.5-2.5); Potassium 4.2 meq/L (3.5-5.1); Sodium 142 meq/L (136-145)
[2018-11-28 21:27] LABS: Alanine Aminotransferase 14 U/L (12-78)
--- NOTE | 2018-11-28 21:27 | ED ---
HPI General Chief complaint: Medical Clearance Stated complaint: poss weakness Time Seen by Provider: 11/28/18 20:26 Source: patient and old records reviewed Limitations: no limitations History of Present Illness complaint: Inability to ambulate secondary to weakness Onset (ago): day(s) (5) Severity: moderate Associated symptoms: Reports other (Low back pain and hematuria) Treatments prior to arrival: Reports none Related Data Home Medications Medication Instructions Recorded Confirmed apixaban [Eliquis] 2.5 mg PO BID 10/03/18 11/28/18 lisinopril 5 mg PO DAILY 10/03/18 11/28/18 meclizine 25 mg PO TID 10/03/18 11/28/18 pantoprazole [Protonix] 40 mg PO BID 10/03/18 11/28/18 metoprolol tartrate 50 mg PO BID 11/07/18 11/28/18 Previous Rx's Medication Instructions Recorded atorvastatin 40 mg PO QPM #30 tab 11/09/18 cephalexin [Keflex] 500 mg PO Q6H 7 Days #28 cap 11/26/18 Allergies Allergy/AdvReac Type Severity Reaction Status Date / Time egg AdvReac Intermediate Nausea/Vomi Verified 11/07/18 18:56 ting Poultry AdvReac Intermediate Nausea/Vomi Verified 11/07/18 18:56 ting Review of Systems ROS: all other systems reviewed are negative [facility] Medical History Medical History Aortic aneurysm (Acute) Atrial fibrillation (Acute) COPD (chronic obstructive pulmonary disease) (Acute) DVT (deep venous thrombosis) (Acute) Emphysema of lung (Acute) Hyperlipidemia (Acute) Hypertension (Acute) PTSD (post-traumatic stress disorder) (Acute) Pacemaker (Acute) Peripheral arterial disease (Acute) Prostate CA (Acute) Stroke (Acute) Vertigo (Acute) Surgical History Surgical History H/O prostatectomy (Acute) History of colon resection (Acute) Social History Social History Substance History: No History of Abuse Second Hand Smoke Exposure: No Smoking Status: Current every day smoker Tobacco Type: Cigarettes Packs Per Day: 1 Cigarettes Per Day: 20.0 Years Smoked: 60 Pack-Years: 60.00 How Often Do You Have a Drink Containing Alcohol: Never Hx Recent Travel: No Recent Travel in [facility] within the Last 8 Weeks: No Recent Out of Country Travel within the Last 8 Weeks: No Immunization History Tetanus Immunization: >5 Years Exam Const General: cooperative, healthy appearing, comfortable, no acute distress and well developed Orientation: alert, awake and oriented x3 HENMT Head: normal to inspection, normocephalic and atraumatic Eyes Alignment and Position: alignment normal and position abnormal Conjunctivae: conjunctivae normal Sclera: sclerae normal EOM: EOM intact bilaterally Neck Neck: normal visual inspection and full ROM Chest Chest: normal inspection of the chest Resp Effort & Inspection: normal respiratory effort and able to speak in complete sentences Auscultation: clear to auscultation bilaterally Cardio Rate: regular rate Rhythm: regular rhythm Pulses: posterior tibial pulses not present, dorsalis pedis pulses not present and other GI Inspection: normal to inspection Palpation: soft Back/Spine/Pelvis Cervical Spine: cervical ROM normal Thoracic/Lumbar Spine: thoraco-lumbar ROM normal, No thoracic spinal tenderness and No lumbar spinal tenderness Skin General: no rashes or lesions noted, turgor normal and dry skin Neuro General: alert, awake, oriented x3, moves all extremities and CN's II-XI intact bilaterally Extrem General: normal to inspection and full ROM Psych Appearance: grossly normal Mental Status: mental status grossly normal Speech and Movement: speech and movement normal Mood: congruent mood Affect: normal affect Attitude: cooperative Thought Process: normal Thought Content: normal Judgment: judgment good Course Initial Documented Vital Signs Temperature 98.6 F 11/28/18 12:59 Pulse Rate 72 11/28/18 12:59 Respiratory Rate 16 11/28/18 12:59 Blood Pressure 124/77 11/28/18 12:59 Pulse Oximetry 98 11/28/18 12:59 Last Documented Vital Signs Temperature 98.4 F 11/29/18 15:23 Pulse Rate 69 11/29/18 15:23 Respiratory Rate 24 11/29/18 15:23 Blood Pressure 104/66 11/29/18 15:23 Pulse Oximetry 96 11/29/18 15:23 Sign Out Sign Out Data: Patient Sign Out occurred on 11/28/18 at 23:12. Patient's care was discussed, and care was transferred from Madeline Mireles to Tesfaye Hardwick MD. Sign Out Comment: This patient is being signed out pending his CTA with runoff. He has a urinary tract infection. He is too weak to walk. He will need admission once his CTA has been done. Last updated by Madeline Mireles at 11/28/18 22:23 Medical Decision Making MDM Narrative Medical decision making narrative: This patient presents with a 5-day history of inability to ambulate secondary to profound weakness. He lives at home alone. He was seen here 2 days ago and diagnosed with urinary tract infection. He was treated with Rocephin. He was discharged with a prescription for an antibiotic but did not have it filled. Weakness workup is pending. Because of the pulseless feet and the low back pain , a CTA with runoff is also pending. His UA is worse rather than better. He will be given a dose of Rocephin IV. I anticipate eventual admission to the hospital. CTA with runoff is pending. This case was signed out to me at [address] Mireles. There was a CTA runoff pending at that time due to cold feet bilaterally w no palpable pulses and the patient was not admitted due to the pending CTA runoff. I was approached by the CTA licensed chemical spray technician who states that the patient's GFR was too low for a contrast- enhanced study. The patient's dorsalis pedis pulses were assessed at the bedside and found to be dopplerable bilaterally. The patient reports having difficulty walking for the past several days so much so that he cannot walk from his bed to the bathroom. Patient was seen here a few days prior and dosed with Rocephin intravenous and sent home with an antibiotic prescription. The patient was unable to fill it. Urinalysis was repeated tonight and we can see there is small leukocyte esterase with 16 WBCs. Urine culture from last time showed pansensitive gram-negative culture. The patient was stood up at the bedside however unable to stand due to numbness in the feet. Before the patient took a step he had to sit back down on the stretcher. Due to the new inability to ambulate over the past few days coupled with the complexity of the patient's medical history hospitalist. The admission was declined citing no indication for observation status or inpatient status having consulted w case management. Bedded outpatient status recommended with a physical therapy evaluation. PT eval ordered. Rocephin IV ordered here. PT reassessed at 630AM and found to be resting comfortably eating genevieve crackers. We discussed plan of care here. Pt was reasonably understanding. He reports having twice weekly visiting nurse to his house. He also reports [facility] for UTI however has yet to fill them. Medical Screen Exam Complete: Yes Emergency Medical Condition: Yes Differential Diagnosis Differential Diagnosis: Differential diagnosis of weakness includes but is not limited to infection, CVA, electrolyte disturbance, renal failure, hypoglycemia Lab Data Result diagrams: 11/28/18 20:40 11/28/18 20:40 Lab Results 11/28/18 11/28/18 11/28/18 Range/Units 20:40 20:40 21:44 WBC 8.2 (4.0-11.0) th/mm3 RBC 4.41 L (4.50-5.90) mil/mm3 Hgb 14.4 (13.0-17.0) gm/dL Hct 42.3 (39.0-51.0) % MCV 96.0 (80.0-100.0) fL MCH 32.6 (27.0-34.0) pg MCHC 34.0 (32.0-36.0) % RDW 14.4 (11.6-17.2) % Plt Count 153 (150-450) th/mm3 MPV 9.4 (7.0-11.0) fL Neut % (Auto) 72.1 H (16.0-70.0) % Lymph % (Auto) 14.8 (9.0-44.0) % [place] % (Auto) 8.2 H (0.0-8.0) % Eos % (Auto) 3.9 (0.0-4.0) % Baso % (Auto) 1.0 (0.0-2.0) % Neut # (Auto) 5.9 (1.8-7.7) th/mm3 Lymph # (Auto) 1.2 (1.0-4.8) th/mm3 [place] # (Auto) 0.7 (0.0-0.9) th/mm3 Eos # (Auto) 0.3 (0.0-0.4) th/mm3 Baso # (Auto) 0.1 (0.0-0.2) th/mm3 WBC Differential . Differential Comment Auto diff final Sodium 142 (136-145) meq/L Potassium 4.2 (3.5-5.1) meq/L Chloride 109 H (98-107) meq/L Carbon Dioxide 20.6 L (21.0-32.0) meq/L Anion Gap 12 (5-15) meq/L BUN 28 H (7-18) mg/dL Creatinine 1.73 H (0.60-1.30) mg/dL Estimated GFR 38 L (>89) mL/min Random Glucose 78 (74-106) mg/dL Calcium 9.2 (8.5-10.1) mg/dL Magnesium 2.1 (1.5-2.5) mg/dL Total Bilirubin 0.5 (0.2-1.0) mg/dL AST 22 (15-37) U/L ALT 14 (12-78) U/L Alkaline Phosphatase 130 H (45-117) U/L Troponin I Less than 0.02 L (0.02-0.05) ng/mL Total Protein 7.6 (6.4-8.2) g/dL Albumin 4.0 (3.4-5.0) g/dL Urine Color Yellow (Yellw/Straw) Urine Clarity Clear (Clear) Urine pH 5.0 (5.0-8.5) Ur Specific [place] 1.013 (1.002-1.035) Urine Protein Negative (Neg-Trace) mg/dL Urine Glucose (UA) Negative (Negative) mg/dL Urine Ketones Negative (Negative) mg/dL Urine Occult Blood Moderate H (Negative) Urine Nitrate Negative (Negative) Urine Bilirubin Negative (Negative) Urine Urobilinogen Less than 2 (Less than 2) mg/dL Ur Leukocyte Esterase Small H (Negative) Urine RBC 1 (0-3) /hpf Urine WBC 16 H (0-5) /hpf Hyaline Casts 3 (0-3) /lpf Micro UA Comment Culture indicated Ur Microscopic Review Not Reportable Urine Culture Comments Culture indicated ECG Data EKG Prior to Arrival: No Attestation: I personally reviewed and interpreted this ECG as follows: (EKG has a lot of artifact. The underlying rhythm seems to be an atrial pacemaker although I certainly cannot say that for sure. I do not appreciate any STT wave changes. I do see some PVCs.) Discharge Plan Discharge Disposition Patient Disposition: Sign Out(ED Internal Use Only) Discharge Order Discharge Orders: ED Use Only Admit Order (Routine); Ordered 11/29/18 Ordered By: Devin Zamorano Discharge Details Diagnosis: Weakness, Urinary tract infection Physicians Team ED Provider: Tesfaye Hardwick Primary Care Provider: UNKNOWN, Attending Provider: Rhona Perez Other Providers: Claudio Mike ; Sherri Carney,Wen ; Tiffanie Johansen Status ED Status: Left Department Discharge Information Discharge Date/Time: 11/29/18 11:20
[2018-11-28 21:31] LABS: Alkaline Phosphatase 130 U/L (45-117); Total Protein 7.6 g/dL (6.4-8.2)
[2018-11-28 22:07] LABS: Bilirubin,Urine Negative (Negative); Clarity,Urine Clear (Clear); Color,Urine Yellow (Yellw/Straw); Glucose,Urine (UA) Negative (Negative); Hyaline Casts,Urine 3 /lpf (0-3); Leukocyte Esterase,Urine Small (Negative); Nitrite,Urine Negative (Negative); Specific Gravity,Urine 1.013 (1.002-1.035)
--- NOTE | 2018-11-29 09:01 | P.HPIM ---
History of Present Illness Primary Care Physician: UNKNOWN Chief Complaint: right leg weakness History of Present Illness: patient is a 78 y/o male with history of hypertension, COPD, a-fib, prostate cancer who presented to ER with right leg weakness. he says that he normally walks with a cane. but since five days ago he hasn't been to move his right leg- and couldn't walk even with using his leg. he has some on and off pain to the right lower extremity. he says that he had ' some blood in the urine' nad had some dysuria yesterday. he denies any urinary incontinence,fever. Inpatient Certification Inpatient Certification: I certify that the inpatient services were ordered in accordance with Medicare regulations governing the order. This includes certification that hospital inpatient services are reasonable and necessary and in the case of services not specified as inpatient-only under 42 CFR 419.22(n), that they are appropriately provided as inpatient services in accordance to with the 2-midnight benchmark under 43 CFR 412.3(e) Estimated Total Length of Stay (Days): 2 Plans for Post Hospital Care: Not yet determined Review of Systems Review of Systems: all other systems reviewed are negative [facility] Medical History Medical History Aortic aneurysm (Acute) Atrial fibrillation (Acute) COPD (chronic obstructive pulmonary disease) (Acute) DVT (deep venous thrombosis) (Acute) Emphysema of lung (Acute) Hyperlipidemia (Acute) Hypertension (Acute) PTSD (post-traumatic stress disorder) (Acute) Pacemaker (Acute) Peripheral arterial disease (Acute) Prostate CA (Acute) Stroke (Acute) Vertigo (Acute) Surgical History Surgical History H/O prostatectomy (Acute) History of colon resection (Acute) Social History Social History Substance History: No History of Abuse Second Hand Smoke Exposure: No Smoking Status: Current every day smoker Tobacco Type: Cigarettes Packs Per Day: 1 Cigarettes Per Day: 20.0 Years Smoked: 60 Pack-Years: 60.00 How Often Do You Have a Drink Containing Alcohol: Never Hx Recent Travel: No Recent Travel in [facility] within the Last 8 Weeks: No Recent Out of Country Travel within the Last 8 Weeks: No Immunization History Tetanus Immunization: >5 Years Medications and Allergies Allergies Allergy/AdvReac Type Severity Reaction Status Date / Time egg AdvReac Intermediate Nausea/Vomi Verified 11/07/18 18:56 ting Poultry AdvReac Intermediate Nausea/Vomi Verified 11/07/18 18:56 ting Home Medications Medication Instructions Recorded Confirmed Type apixaban [Eliquis] 2.5 mg PO BID 10/03/18 11/28/18 History lisinopril 5 mg PO DAILY 10/03/18 11/28/18 History meclizine 25 mg PO TID 10/03/18 11/28/18 History pantoprazole [Protonix] 40 mg PO BID 10/03/18 11/28/18 History metoprolol tartrate 50 mg PO BID 11/07/18 11/28/18 History Active Medications: Active Medications Atorvastatin Calcium (Lipitor) 40 mg PO QPM VALERIA Ceftriaxone Sodium 1,000 mg/ (Sodium Chloride) 100 mls @ 200 mls/hr IV.SIG Q24H VALERIA Lisinopril (Prinivil) 5 mg PO DAILY VALERIA Metoprolol Tartrate (Lopressor) 50 mg PO BID VALERIA Non-Formulary Medication (Pantoprazole [Protonix]) 40 mg PO BID VALERIA Sodium Chloride (Ns Flush) 2 ml IV.FLUSH PRN PRN PRN Reason: FLUSH AFTER USING IV ACCESS Physical Exam Vital signs: Vital Signs 11/28/18 12:59 11/28/18 20:28 11/29/18 00:31 Temperature 98.6 F Pulse Rate 72 81 70 Respiratory Rate 16 18 16 Blood Pressure 124/77 124/93 H 157/85 H Pulse Oximetry 98 95 94 L 11/29/18 05:05 11/29/18 08:06 Temperature Pulse Rate 73 70 Respiratory Rate 18 16 Blood Pressure 159/78 H 102/59 L Pulse Oximetry 95 98 Intake & Output 11/28/18 11/29/18 11/29/18 18:59 06:59 18:59 Intake Total 1100 / 1100 Balance 1100 / 1100 Weight 77.111 kg Intake: IV 1100 / 1100 NS Inj 1,000 ML @ Wide Open IV. 1000 / 1000 SIG BOLUS ONE Rx#:[id number] Rocephin Inj 1,000 MG In NS Inj 100 / 100 100 ML @ 200 mls/hr IV.SIG ONCE ONE Rx#:[id number] Constitutional no acute distress Routine HEENT Exam Eye: Present PERRL Routine Neck Exam Present supple Routine Respiratory Exam Present CTA bilaterally Routine Cardiovascular Exam Present RRR Routine Abdominal Exam Present soft Routine Extremities Exam Comments: no pedal edema. Routine Neurological Exam Present alert and oriented X3 weakness of the right lower extremity. Results Labs CBC & Chem 7: 11/28/18 20:40 11/28/18 20:40 Caprini VTE Risk Assessment Caprini VTE Risk Assessment: Moderate/High Risk (score >= 2) Caprini Risk Assessment Model: Point Value = 1 Point Value = 2 Point Value = 3 Point Value = 5 Age 41-60 Minor surgery BMI > 25 kg/m2 Swollen legs Varicose veins or History of unexplained or recurrent spontaneous Oral contraceptives or hormone replacement Sepsis (< 1 month) Serious lung disease, including pneumonia (< 1 month) Abnormal pulmonary function Acute myocardial infarction Congestive heart failure (< 1 month) History of inflammatory bowel disease Medical patient at bed rest Age 61-74 Arthroscopic surgery Major open surgery (> 45 min) Laparoscopic surgery (> 45 min) Malignancy Confined to bed (> 72 hours) Immobilizing plaster cast Central venous access Age >= 75 History of VTE Family history of VTE Factor V Leiden Prothrombin [id number] Lupus anticoagulant Anticardiolipin antibodies Elevated serum homocysteine Heparin-induced thrombocytopenia Other congenital or acquired thrombophilia Stroke (< 1 month) Elective arthroplasty Hip, pelvis, or leg fracture Acute spinal cord injury (< 1 month) Prophylaxis Regimen: Total Risk Factor Score Risk Level Prophylaxis Regimen 0-1 Low Early ambulation 2 Moderate Order ONE of the following: *Sequential Compression Device (SCD) *Heparin 5000 units SQ BID 3-4 Higher Order ONE of the following medications: *Heparin 5000 units SQ TID *Enoxaparin/Lovenox 40 mg SQ daily (WT < 150 kg, CrCl > 30 mL/min) *Enoxaparin/Lovenox 30 mg SQ daily (WT < 150 kg, CrCl > 10-29 mL/min) *Enoxaparin/Lovenox 30 mg SQ BID (WT < 150 kg, CrCl > 30 mL/min) AND/OR *Sequential Compression Device (SCD) 5 or more Highest Order ONE of the following medications: *Heparin 5000 units SQ TID (Preferred with Epidurals) *Enoxaparin/Lovenox 40 mg SQ daily (WT < 150 kg, CrCl > 30 mL/min) *Enoxaparin/Lovenox 30 mg SQ daily (WT < 150 kg, CrCl > 10-29 mL/min) *Enoxaparin/Lovenox 30 mg SQ BID (WT < 150 kg, CrCl > 30 mL/min) AND *Sequential Compression Device (SCD) Assessment and Plan Plan A/P - right lower extremity weakness/ PVD consult neurology and vascular surgery- consult PT and case management of note had a CTA run off three months ago with occlusion of the left superficial femoral artery and moderate stenosis of the right superficial femoral artery along with severe atherosclerotic steno-occlusive disease in the infrapopliteal region bilaterally with poor single vessel runoff distally. - UTI continue with IV Rocephin- will follow the UC and adjust the antibiotic regimen accordingly. -hypertension resume Lisinopril and Metoprolol- continue to monitor. -A-fib resume Metoprolol and Eliquis - s/p pacemaker placement. -COPD with no exacerbation neb treatment as needed. -CKD- as his baseline will monitor -DVT prophylaxis; on Eliquis Discussed Condition With: ER physician and the patient. Discharge Planning: pending w/u and PT evaluation.
[2018-11-29] MEDS: Lisinopril 5 MG Tablet PO SCH (09:11)
[2018-11-29] MEDS: Metoprolol Tartrate 50 MG Tablet PO SCH ×2 (09:11→22:10)
--- NOTE | 2018-11-29 21:07 | ECG ---
Date Performed: 11/28/2018 Time Performed: 20:49:58 PTAGE: 78 years EKG: ELECTRONIC ATRIAL PACEMAKER PVCs ABNORMAL RHYTHM ECG PREVIOUS TRACING : 11/26/2018 16.24 Compared to previous tracing, V pacing not present DOCTOR: Maryam Rivera Interpretating Date/Time 11/29/2018 21:07:19
--- NOTE | 2018-11-30 07:53 | P.PNIM ---
Subjective Interval history: f/u; right leg weakness in no acute distress. denies pain. still with weakness of the right leg. Physical Exam Vital signs: Vital Signs 11/29/18 08:06 11/29/18 09:00 11/29/18 12:00 Temperature 98.1 F Pulse Rate 70 73 57 L Respiratory Rate 16 18 16 Blood Pressure 102/59 L 154/72 H 138/77 Pulse Oximetry 98 98 97 11/29/18 15:23 11/29/18 20:00 11/30/18 00:00 Temperature 98.4 F 98.4 F 98.4 F Pulse Rate 69 70 81 Respiratory Rate 24 20 20 Blood Pressure 104/66 111/69 116/75 Pulse Oximetry 96 96 98 11/30/18 04:00 Temperature 98.3 F Pulse Rate 74 Respiratory Rate 20 Blood Pressure 134/77 Pulse Oximetry 98 Intake & Output 11/29/18 11/30/18 11/30/18 18:59 06:59 18:59 Intake Total 360 / 360 100 / 100 Output Total 650 / 650 Balance -290 / -290 100 / 100 Weight 77 kg Intake: IV 100 / 100 Rocephin Inj 1,000 MG In NS Inj 100 / 100 100 ML @ 200 mls/hr IV.SIG Q24H VALERIA Rx#:[id number] Oral 360 / 360 Output: Urine 650 / 650 Other: # Voids 2 # Incontinent Voids 3 Date of Last Bowel Movement 11/29/18 11/29/18 # Bowel Movements 2 1 # Incontinent Bowel Movements 3 Weight On Admission 77 kg Constitutional no acute distress Routine Respiratory Exam Present CTA bilaterally Routine Cardiovascular Exam Present RRR Routine Abdominal Exam Present soft Routine Extremities Exam Comments: no pedal edema. Routine Neurological Exam Present alert and oriented X3 weakness of the right leg. Results Labs CBC & Chem 7: 11/28/18 20:40 11/28/18 20:40 Assessment and Plan Plan A/P - right lower extremity weakness/ PVD consulted neurology and vascular surgery- consulted PT and case management of note had a CTA run off three months ago with occlusion of the left superficial femoral artery and moderate stenosis of the right superficial femoral artery along with severe atherosclerotic steno-occlusive disease in the infrapopliteal region bilaterally with poor single vessel runoff distally. - UTI continue with IV Rocephin- will follow the UC and adjust the antibiotic regimen accordingly. -hypertension resumed Lisinopril and Metoprolol- continue to monitor. -A-fib resumed Metoprolol and Eliquis - s/p pacemaker placement. -COPD with no exacerbation neb treatment as needed. -CKD- as his baseline will monitor -DVT prophylaxis; on Eliquis Discharge Planning: PT recommended rehab; will consult case management. Progress Note: Quality VTE Deep Vein Thrombosis/Pulmonary Embolism Present on Admission: No
[2018-11-30] MEDS: Lisinopril 5 MG Tablet PO SCH (09:33)
[2018-11-30] MEDS: Metoprolol Tartrate 50 MG Tablet PO SCH ×2 (09:34→20:32)
--- NOTE | 2018-12-01 01:35 | MB ---
cc: Claudio Mike MD DATE: 11/30/2018 REASON FOR CONSULTATION: Right lower extremity weakness. HISTORY OF PRESENT ILLNESS: Mr. López is a right-handed, male who is seen for neurologic evaluation of one week of worsening right lower extremity weakness. PAST MEDICAL HISTORY: Hypertension, COPD, atrial fibrillation, prostate cancer and history of stroke 2 years ago with residual right-sided upper and lower extremity weakness. He usually uses a cane, although he felt that there has been some worsening in the right lower extremity weakness and to a lesser extent in the right upper extremity, the patient is a poor historian though. The patient denies any pain in the back or pain in the lower extremity. He also shares that he had blood in the urine with burning micturition. He denies headache, double vision, facial drooping or speech difficulty. The patient is seen with no family members at bedside. REVIEW OF SYSTEMS: A 12-point review of system is negative, except for that stated in the HPI. PAST MEDICAL HISTORY: Aortic aneurysm, atrial fibrillation, COPD, DVT, emphysema, hyperlipidemia, hypertension, PTSD, status post pacemaker, peripheral artery disease, prostate cancer, stroke and vertigo. PAST SURGICAL HISTORY: History of prostatectomy and colon resection. SOCIAL HISTORY: No history of substance abuse. He smokes 1 pack of cigarettes every day. Denies alcohol. MEDICATIONS: 1. Eliquis. 2. Lisinopril. 3. Meclizine. 4. Pantoprazole. 5. Metoprolol. ALLERGIES: NO KNOWN ALLERGIES. FAMILY HISTORY: Noncontributory. PHYSICAL EXAMINATION: GENERAL: Awake, alert, oriented to time, person and place. He lays in bed with no acute distress. HEENT: Atraumatic, normocephalic, intact hearing, intact vision. NECK: Supple. No signs of pharyngeal irritation. No carotid bruit. RESPIRATORY: Clear to auscultation. No wheezes. CARDIOVASCULAR: Regular rate and rhythm. Abdomen is soft. EXTREMITIES: No leg edema. Cannot move right lower extremity and weak right upper extremity. SKIN: There are petechiae throughout bilateral lower extremities. PSYCHIATRIC: Cooperative, pleasant. No hallucinations. Intact mood or behavior. LABORATORY RESULTS: 1. WBC 8.2, hemoglobin 14.4, platelet 153. 2. Sodium 142, potassium 4.2, BUN 28, creatinine 1.73, magnesium 2.1, calcium 9.2, alkaline phosphatase 130. 3. Urine positive for occult blood was small leukocyte esterase and 16 urine white blood cells. 4. Head CT scan on 11/26/2017 revealed a remote left frontal infarct with encephalomalacia. No signs of an acute . IMPRESSION AND PLAN: 1. Right lower extremity weakness. 2. The patient is status post stroke with right-sided weakness, lower extremity greater than upper extremity. There is no clear baseline; however, he states he used to walk and now there is worsening of the weakness, head CT scan did not show an acute stroke; however, if weakness persists, MRI of the brain is warranted. 3. History of remote stroke with residual right-sided weakness. 4. History of atrial fibrillation. 5. Urinary tract infection. 6. Chronic obstructive pulmonary disease. 7. Chronic kidney disease. 8. Neuro checks q.4 hourly. 9. Continue physical therapy. 10. DVT prophylaxis, already on Eliquis. 11. Cannot performed MRI status post pacemaker placement. 12. Physical therapy. 13. There is no clear indication of the worsening right lower extremity weakness unless recrudescence of the remote stroke. 14. Deep venous thrombosis prophylaxis. 15. Gastrointestinal prophylaxis. 16. Fall precautions. Thank you for the pleasure of participating in the care of your patient. MD SRIRAM Navas/ryne/do , 08:47 PM , 08:58 PM
[2018-12-01] MEDS: Lisinopril 5 MG Tablet PO SCH (09:29)
[2018-12-01] MEDS: Metoprolol Tartrate 50 MG Tablet PO SCH ×2 (09:29→22:25)
--- NOTE | 2018-12-01 09:58 | P.PNNEU ---
Subjective Active Medications: Active Medications Albuterol (Albuterol Neb (Prn)) 1.25 mg NEB Q4HR NEB PRN PRN Reason: sob Apixaban (Eliquis) 2.5 mg PO BID [facility] Last Admin: 12/01/18 09:29 Dose: 2.5 mg Atorvastatin Calcium (Lipitor) 40 mg PO HS [facility] Last Admin: 11/30/18 20:28 Dose: 40 mg Ceftriaxone Sodium 1,000 mg/ (Sodium Chloride) 100 mls @ 200 mls/hr IV.SIG Q24H [facility] Last Infusion: 11/30/18 22:42 Dose: Infused Lisinopril (Prinivil) 5 mg PO DAILY [facility] Last Admin: 12/01/18 09:29 Dose: 5 mg Metoprolol Tartrate (Lopressor) 50 mg PO BID [facility] Last Admin: 12/01/18 09:29 Dose: 50 mg Pantoprazole Sodium (Protonix) 40 mg PO BID [facility] Last Admin: 12/01/18 09:29 Dose: 40 mg Sodium Chloride (Ns Flush) 2 ml IV.FLUSH PRN PRN PRN Reason: FLUSH AFTER USING IV ACCESS Last Admin: 12/01/18 09:29 Dose: 2 ml Allergies/Adverse Reactions: Allergies Allergy/AdvReac Type Severity Reaction Status Date / Time egg AdvReac Intermediate Nausea/Vomi Verified 11/07/18 18:56 ting Poultry AdvReac Intermediate Nausea/Vomi Verified 11/07/18 18:56 ting Physical Exam Vital signs: Vital Signs 11/30/18 12:00 11/30/18 16:00 11/30/18 20:00 Temperature 98.4 F 98.8 F 98.7 F Pulse Rate 61 74 67 Respiratory Rate 18 18 20 Blood Pressure 120/72 113/66 136/86 Pulse Oximetry 97 96 96 12/01/18 00:00 12/01/18 04:00 12/01/18 07:10 Temperature 98.4 F 98.1 F 96.1 F L Pulse Rate 64 70 73 Respiratory Rate 20 20 20 Blood Pressure 136/84 137/82 140/84 Pulse Oximetry 97 96 98 Intake & Output 11/30/18 12/01/18 12/01/18 18:59 06:59 18:59 Intake Total 960 / 960 100 / 100 Output Total 650 / 650 200 / 200 Balance 310 / 310 -100 / -100 Intake: IV 100 / 100 Rocephin Inj 1,000 MG In NS Inj 100 / 100 100 ML @ 200 mls/hr IV.SIG Q24H [facility] Rx#:[id number] Oral 960 / 960 Output: Urine 650 / 650 200 / 200 Other: Date of Last Bowel Movement 11/30/18 11/30/18 # Bowel Movements 2 0 Narrative: vff face sym nl speech 5/5 rue some inc tone there 0-1/5 rle but withdraws it well from babinskin and triple flexes knee off bed a lot then cannot swing leg right off bed but can stand on it with minimal step Objective Microbiology 11/28/18 21:44 Urine Culture - Final Clean Catch Urine No growth in 48 hours Review/Management - Review/Management Plan: imp ct spine and brain nothing new check us add asa 81 PT standing bp and labs hard to say whats going on
--- NOTE | 2018-12-01 11:06 | US ---
EXAM DATE: 12/01/2018 10:47 AM EST AGE/SEX: 78 years / Male INDICATIONS: Cerebral vascular accident. CLINICAL DATA: This is the patient's initial encounter. Patient reports that signs and symptoms have been present for 1 day and indicates a pain score of 0/10. MEDICAL/SURGICAL HISTORY: Chronic obstructive pulmonary disease. Deep venous thrombosis. Hype rtension. Aortic aneurysm. Afib. Emphysema. Hyperlipidemia. PAD. Prostate carcinoma. PTSD. Stroke. Pacemaker. Prostatectomy. Colon resection. COMPARISON: No prior exams available for comparison. VELOCITY PARAMETERS: ICA/CCA Ratio: Right 1.7 , Left ICA OCCLUDED ICA: Right 96 cm/sec, Left OCCLUDED cm/sec CCA: Right 56 cm/sec, Left 37 cm/sec ECA: Right 74 cm/sec, Left 82 cm/sec Vertebral: Right 47 cm/sec antegrade, Left 76 cm/sec antegrade FINDINGS: Right Carotid: Mild arteriosclerotic plaque is visualized.The waveforms are within normal limits. Left Carotid: Moderate arteriosclerotic plaque is visualized. There is occlusion of the left interna l carotid artery. The waveforms are within normal limits. Other: None. CONCLUSION: Occlusion of the left internal carotid artery. There is mild to moderate plaque seen at the carotid bulb regions. Electronically signed by: Zafar Alston MD Board Certified Radiologist 12/01/2018 11:05 AM EST
[2018-12-01 14:15] LABS: Vitamin B12 269 pg/mL (193-986)
--- NOTE | 2018-12-01 15:01 | P.PNIM ---
Subjective Interval history: Patient reports right lower leg weakness is not worse, mildly better, complains of no pain in the lower legs. No complaints of headaches, no other numbness. Tolerating diet. Physical Exam Vital signs: Vital Signs 11/30/18 16:00 11/30/18 20:00 12/01/18 00:00 Temperature 98.8 F 98.7 F 98.4 F Pulse Rate 74 67 64 Respiratory Rate 18 20 20 Blood Pressure 113/66 136/86 136/84 Pulse Oximetry 96 96 97 12/01/18 04:00 12/01/18 07:10 12/01/18 08:00 Temperature 98.1 F 96.1 F L 98.0 F Pulse Rate 70 73 70 Respiratory Rate 20 20 18 Blood Pressure 137/82 140/84 138/85 Pulse Oximetry 96 98 98 12/01/18 11:10 Temperature 97.8 F Pulse Rate 69 Respiratory Rate 20 Blood Pressure 116/73 Pulse Oximetry 97 Intake & Output 11/30/18 12/01/18 12/01/18 18:59 06:59 18:59 Intake Total 960 / 960 100 / 100 Output Total 650 / 650 200 / 200 150 / 150 Balance 310 / 310 -100 / -100 -150 / -150 Intake: IV 100 / 100 Rocephin Inj 1,000 MG In NS Inj 100 / 100 100 ML @ 200 mls/hr IV.SIG Q24H [facility] Rx#:[id number] Oral 960 / 960 Output: Urine 650 / 650 200 / 200 150 / 150 Other: Date of Last Bowel Movement 11/30/18 11/30/18 11/30/18 # Bowel Movements 2 0 Narrative: Well-nourished well-developed pleasant male laying in bed in no acute distress Cardiovascular regular rate and rhythm Lungs clear to auscultation bilaterally Abdomen was soft nontender Extremities no cyanosis clubbing or edema Neurological exam alert and oriented x3, cranial nerves II through XII intact, bilateral upper extremities 5 out of 5, right lower extremities 2 out of 5 motor strength, left lower extremity 5 out of 5 Results Labs CBC & Chem 7: 11/28/18 20:40 11/28/18 20:40 Labs: Microbiology 11/28/18 21:44 Clean Catch Urine Urine Culture - Final No growth in 48 hours Imaging Imaging: Impressions Carotid Doppler Study 02/25/19 00:00 CONCLUSION: Occlusion of the left internal carotid artery. There is mild to moderate plaque seen at the carotid bulb regions. Assessment and Plan Plan 78-year-old white male with a history of hypertension, COPD, atrial fibrillation , previous peripheral vascular disease presents to the emergency room with right leg weakness Right lower extremity weakness with inability to ambulate CT brain showed no acute changes Able to obtain MRI of the brain due to history of pacemaker Status post neurology evaluation appreciate recommendations PT OT evaluation History of peripheral arterial disease Note a CTA runoff 3 months ago showed occlusion of the left superficial femoral artery and moderate stenosis of the right superficial along with some severe atherosclerotic steno-occlusive disease in the infra popliteal region bilaterally with poor single-vessel runoff distally, will obtain a vascular surgery evaluation Add aspirin Continue Eliquis Vascular surgery consultation COPD with no acute exacerbation Continue DuoNeb treatment as needed History of atrial fibrillation, currently normal sinus rhythm To new metoprolol and Eliquis Chronic kidney disease stage III-creatinine remained stable will repeat in the morning Avoid nephrotoxins Abnormal urinalysisurine cultures shows no growth in 48 hours, will stop ceftriaxone DVT prophylaxisEliquis Progress Note: Quality VTE Deep Vein Thrombosis/Pulmonary Embolism Present on Admission: No
--- NOTE | 2018-12-02 08:30 | P.PNNEU ---
Subjective Active Medications: Active Medications Albuterol (Albuterol Neb (Prn)) 1.25 mg NEB Q4HR NEB PRN PRN Reason: sob Apixaban (Eliquis) 2.5 mg PO BID [facility] Last Admin: 12/01/18 22:25 Dose: 2.5 mg Aspirin (Aspirin Chew) 81 mg PO DAILY [facility] Last Admin: 12/01/18 14:16 Dose: 81 mg Atorvastatin Calcium (Lipitor) 40 mg PO HS [facility] Last Admin: 12/01/18 22:25 Dose: 40 mg Lisinopril (Prinivil) 5 mg PO DAILY [facility] Last Admin: 12/01/18 09:29 Dose: 5 mg Metoprolol Tartrate (Lopressor) 50 mg PO BID [facility] Last Admin: 12/01/18 22:25 Dose: 50 mg Pantoprazole Sodium (Protonix) 40 mg PO BID [facility] Last Admin: 12/01/18 22:25 Dose: 40 mg Sodium Chloride (Ns Flush) 2 ml IV.FLUSH PRN PRN PRN Reason: FLUSH AFTER USING IV ACCESS Last Admin: 12/01/18 22:26 Dose: 2 ml Allergies/Adverse Reactions: Allergies Allergy/AdvReac Type Severity Reaction Status Date / Time egg AdvReac Intermediate Nausea/Vomi Verified 11/07/18 18:56 ting Poultry AdvReac Intermediate Nausea/Vomi Verified 11/07/18 18:56 ting Physical Exam Vital signs: Vital Signs 12/01/18 11:10 12/01/18 14:15 12/01/18 16:00 Temperature 97.8 F 98.6 F 96.8 F L Pulse Rate 69 70 79 Respiratory Rate 20 20 18 Blood Pressure 116/73 120/69 113/73 Pulse Oximetry 97 97 97 12/01/18 20:35 12/02/18 00:00 12/02/18 05:20 Temperature 98.2 F 98.2 F 98.0 F Pulse Rate 72 60 57 L Respiratory Rate 16 18 19 Blood Pressure 140/67 135/86 127/63 Pulse Oximetry 94 L 97 98 12/02/18 08:00 Temperature 98.4 F Pulse Rate 50 L Respiratory Rate 18 Blood Pressure 136/80 Pulse Oximetry 99 Intake & Output 12/01/18 12/02/18 12/02/18 18:59 06:59 18:59 Intake Total 240 / 240 Output Total 350 / 350 Balance -110 / -110 Weight 68.3 kg Intake: Oral 240 / 240 Output: Urine 350 / 350 Other: # Voids 2 3 Date of Last Bowel Movement 12/01/18 12/02/18 # Bowel Movements 1 2 Narrative: moving rle more in bed Objective Laboratory Results - last 24 hr 12/01/18 12/01/18 12/01/18 13:18 13:18 18:30 ESR 6 Ammonia 24 Vitamin B12 269 TSH 1.780 Rheumatoid Factor Scrn Negative Rheumatoid Factor Titer Not Reportable Microbiology 11/28/18 21:44 Urine Culture - Final Clean Catch Urine No growth in 48 hours Review/Management - Review/Management Plan: imp ct spine and brain nothing new check us add asa 81 PT standing bp and labs hard to say whats going on 12/02/18 his us shows left ica occluded so could be hemodynamic problem so run his bp 140 /99 bp standing 100/ please lower his bp meds to run bp higher b12 shot
[2018-12-02] MEDS: Metoprolol Tartrate 50 MG Tablet PO SCH (09:02)
[2018-12-02] MEDS: Lisinopril 5 MG Tablet PO SCH (09:02)
[2018-12-02 10:45] LABS: Calcium 8.7 mg/dL (8.5-10.1); Carbon Dioxide 25.3 meq/L (21.0-32.0)
[2018-12-02 10:48] LABS: Chol/HDL Ratio 2.58 Ratio; HDL Cholesterol 40.3 mg/dL (40.0-60.0)
--- NOTE | 2018-12-02 11:23 | P.PNIM ---
Subjective Interval history: Reports that his right lower leg is stronger now. No pain. Would rather go home versus going to rehab. Is losing his lease in his apartment this week and needs to go home to take care of this. Physical Exam Vital signs: Vital Signs 12/01/18 14:15 12/01/18 16:00 12/01/18 20:35 Temperature 98.6 F 96.8 F L 98.2 F Pulse Rate 70 79 72 Respiratory Rate 20 18 16 Blood Pressure 120/69 113/73 140/67 Pulse Oximetry 97 97 94 L 12/02/18 00:00 12/02/18 05:20 12/02/18 08:00 Temperature 98.2 F 98.0 F 98.4 F Pulse Rate 60 57 L 50 L Respiratory Rate 18 19 18 Blood Pressure 135/86 127/63 136/80 Pulse Oximetry 97 98 99 Intake & Output 12/01/18 12/02/18 12/02/18 18:59 06:59 18:59 Intake Total 240 / 240 Output Total 350 / 350 Balance -110 / -110 Weight 68.3 kg Intake: Oral 240 / 240 Output: Urine 350 / 350 Other: # Voids 2 3 Date of Last Bowel Movement 12/01/18 12/02/18 # Bowel Movements 1 2 Narrative: Well-nourished well-developed pleasant male laying in bed in no acute distress Cardiovascular regular rate and rhythm Lungs clear to auscultation bilaterally Abdomen was soft nontender Extremities no cyanosis clubbing or edema Neurological exam alert and oriented x3, cranial nerves II through XII intact, bilateral upper extremities 5 out of 5, right lower extremities improved 4out of 5 motor strength, left lower extremity 5 out of 5 Results Labs CBC & Chem 7: 11/28/18 20:40 12/02/18 09:23 Labs: Microbiology 11/28/18 21:44 Clean Catch Urine Urine Culture - Final No growth in 48 hours Assessment and Plan Plan 78-year-old white male with a history of hypertension, COPD, atrial fibrillation , previous peripheral vascular disease presents to the emergency room with right leg weakness Right lower extremity weakness with inability to ambulateclinically improving overnight CT brain showed no acute changes Able to obtain MRI of the brain due to history of pacemaker Status post neurology evaluation appreciate recommendations PT /OT evaluation History of peripheral arterial disease Note a CTA runoff 3 months ago showed occlusion of the left superficial femoral artery and moderate stenosis of the right superficial along with some severe atherosclerotic steno-occlusive disease in the infra popliteal region bilaterally with poor single-vessel runoff distally, will obtain a vascular surgery evaluation Add aspirin Continue Eliquis Vascular surgery consultation pending Left carotid artery occlusionper neurologist add aspirin and keep blood pressure elevated due to orthostatic BP changes, hold lisinopril, decrease metoprolol dose COPD with no acute exacerbation Continue DuoNeb treatment as needed History of atrial fibrillation, currently normal sinus rhythm Continue metoprolol and Eliquis Chronic kidney disease stage III-creatinine improved overnight Avoid nephrotoxins Abnormal urinalysis11/28 urine cultures shows no growth in 48 hours, will stop ceftriaxone, previously had Klebsiella oxytoca UTI DVT prophylaxisEliquis Patient's right lower leg has clinically improved, patient is declining to go to [facility] facility, will have physical therapy reevaluate to determine if patient can go home with home health care. Progress Note: Quality VTE Deep Vein Thrombosis/Pulmonary Embolism Present on Admission: No
--- NOTE | 2018-12-02 11:27 | P.DCO ---
Diagnosis (1) Right leg weakness: Status: Acute (2) PAD (peripheral artery disease): Status: Chronic Physical Therapy Order: Evaluate and treat Home Health Nursing Order: Nursing assessment with vital signs Case Management Consult Case Management Consult-Home Health: Yes I have seen patient Liam López on 12/02/18. My clinical findings support the need for the requested home health care services because: Deconditioned with increased weakness I certify that my clinical findings support that this patient is homebound because: Unsteady gait/balance
[2018-12-02] MEDS: Metoprolol Tartrate 25 MG Tablet PO SCH ×2 (12:24→22:28)
--- NOTE | 2018-12-02 14:56 | P.PNVS ---
Subjective Subjective/Hospital Course: Referral received Patient evaluated and examined/full consult dictated Thanks J Objective Vital Signs / I&O: Vital Signs 12/01/18 16:00 12/01/18 20:35 12/02/18 00:00 Temperature 96.8 F L 98.2 F 98.2 F Pulse Rate 79 72 60 Respiratory Rate 18 16 18 Blood Pressure 113/73 140/67 135/86 Pulse Oximetry 97 94 L 97 12/02/18 05:20 12/02/18 08:00 12/02/18 12:00 Temperature 98.0 F 98.4 F 97.8 F Pulse Rate 57 L 50 L 68 Respiratory Rate 19 18 18 Blood Pressure 127/63 136/80 116/66 Pulse Oximetry 98 99 100 Intake & Output 12/01/18 12/02/18 12/02/18 18:59 06:59 18:59 Intake Total 240 / 240 Output Total 350 / 350 Balance -110 / -110 Weight 68.3 kg Intake: Oral 240 / 240 Output: Urine 350 / 350 Other: # Voids 2 3 Date of Last Bowel Movement 12/01/18 12/02/18 12/02/18 # Bowel Movements 1 2 Laboratory Results - last 24 hr 12/01/18 12/01/18 12/02/18 13:18 18:30 09:23 ESR 6 Sodium 143 Potassium 4.0 Chloride 111 H Carbon Dioxide 25.3 Anion Gap 7 BUN 22 H Creatinine 1.52 H Estimated GFR 44 L Random Glucose 87 Calcium 8.7 Total Creatine Kinase 90 Triglycerides 113 Cholesterol 104 L LDL Cholesterol, Calc 41 HDL Cholesterol 40.3 Cholesterol/HDL Ratio 2.58 RPR Nonreactive Impressions Carotid Doppler Study 12/01/18 00:00 CONCLUSION: Occlusion of the left internal carotid artery. There is mild to moderate plaque seen at the carotid bulb regions.
--- NOTE | 2018-12-02 15:43 | MB ---
cc: Tiffanie Johansen MD DATE: 12/02/2018 CONSULTING PHYSICIAN: Dr. Johansen, Vascular Surgery. REASON FOR CONSULTATION: Peripheral vascular disease, inability to move the right leg, left internal carotid artery occlusion. HISTORY OF PRESENT DISEASE: This is a 74-year-old male who presents to the hospital with a history that for the last 5 days he was unable to move his right lower extremity. He states that he was a weak before, but now it is worse. He also has difficulty moving his right upper extremity, but that is better. He is a very poor historian and it is hard to get something out of him as far as the timeline of things. Either way he says he could walk with a cane until about 5-6 days ago and now it is much worse. Question arises about any vascular implications. PAST MEDICAL HISTORY: Chronic atrial fibrillation, COPD, DVT, hyperlipidemia, hypertension, sick sinus syndrome, prostate cancer, stroke, vertigo, peripheral artery disease. PAST SURGICAL HISTORY: Prostatectomy, colon resection, aortic aneurysm, endovascular stenting and pacemaker placement. SOCIAL HISTORY: The patient smokes continuously; about a pack and a half per day, states he does not drink. MEDICATIONS: Can be found in the record including Eliquis. PHYSICAL EXAMINATION: GENERAL: Reveals a 74-year-old male in no acute distress. HEENT: Normocephalic. No trauma to the head. Pupils equal, reactive. Extraocular muscles were intact. A slight droop of the right side of the face, but this is chronic. NECK: Bilateral carotid pulses in the lower neck and unilateral right carotid pulse in the upper neck. Left internal carotid artery is occluded. CHEST: Bilateral breath sounds decreased over both lungs pineda consistent with significant chronic obstructive pulmonary disease. HEART: The patient is actually in irregular rhythm. He is in a slow atrial fibrillation with some bigeminy. ABDOMEN: Soft. Active bowel sounds. No rebound or guarding. No masses. EXTREMITIES: The patient has strong palpable femoral pulses, bilateral weak popliteal pulses on Doppler and weak posterior tibial pulses. I do not perceive dorsalis pedis in either foot. BACK: Normal. NEUROLOGIC: The patient has weakness in the right arm, which is about 3-5 and the right leg, which is about 2-5. IMPRESSION AND RECOMMENDATIONS: I reviewed laboratory and diagnostic procedures. This gentleman has left internal carotid artery occlusion and possible right internal carotid artery stenosis, which we have to elucidate to make sure that this is okay. The weakness of the right leg is clearly not vascular in nature. This patient on the clinical exam has peripheral vascular disease and probably pretty good inflow judging by the pulses, but then most likely superficial femoral artery occlusion and possibly even popliteal artery occlusion. Runoff is probably via 1-vessel to the foot, because I cannot detect dorsalis pedis and the patient is not overweight that would make it difficult otherwise. The posterior tibial is actually weak on Doppler. Feet are not acutely ischemic. Capillary refill is decreased and delayed, but certainly not critical. The left leg is equally bad as the right leg, so I do not believe that vascular flow, as poor as it is has anything due to the patient's inability to move the leg, most likely the patient has had additional stroke, for he still has small vessel disease of the brain and this is purely a neurologic phenomenon. We will order arterial Doppler studies and based on that, the patient may or may not need CTA with runoff, but my feeling is that patient does have severe peripheral vascular disease, which is not acute and probably superimposed stroke on previous occlusion of the left carotid artery and on previous admissions left internal carotid artery occlusion was described and this is not new, but just because the patient has occlusion on one side does not mean that cannot get further strokes on the same side from small vessel disease and that is probably what is causing this problem. Another option would be metastatic disease from prostate cancer or something of sorts compressing his spine, which may need to be looked at in the future. I thank you for this referral. MD QUINTEN Medley/rachel , 02:53 PM , 03:07 PM
--- NOTE | 2018-12-02 23:13 | CT ---
EXAM DATE: 12/02/2018 11:04 PM EST AGE/SEX: 78 years / Male INDICATIONS: Evaluate for obstruction. CLINICAL DATA: This is the patient's initial encounter. Patient reports that signs and symptoms have been present for 1 day and indicates a pain score of 0/10. MEDICAL/SURGICAL HISTORY: Chronic obstructive pulmonary disease. Hypertension. Carcinoma, prostat ic. AAA, Afib,DVT,PAD.Stroke Abdominal aortic aneurysm repair. Pacer RADIATION DOSE: 28.77 CTDI (mGy) COMPARISON: [facility] – [place], CT THORACIC SPINE W/O CONTRAST, 11/09/2018. . TECHNIQUE: Volumetric scanning was performed using a multirow detector CT scanner during bolus infus ion of 80ml ml Omnipaque 350 (iohexol) nonionic water-soluble contrast as a single exam dose. The data was postprocessed with a variety of visualization algorithms including full-volume maximum inten sity projection, multiplanar sliding thin-slab reformation, curved-planar reformation, and surface-re ndering techniques. Using automated exposure control and adjustment of the mA and/or kV according to patient size, radiation dose was kept as low as reasonably achievable to obtain optimal diagnostic q uality images. DICOM format image data is available electronically for review and comparison. FINDINGS: Aortic Arch: There is a three-vessel origin of the great vessels from the aorta. No evidence of ost ial narrowing Right Carotid: The common carotid artery is intact. Mild calcified plaque within the right carotid b ulb. No significant stenosis. The external carotid artery is intact. Left Carotid: The common carotid artery is intact. There is occlusion of the left internal carotid a rtery beginning at its origin. The external carotid artery is intact. Vertebrals: The vertebral arteries have a symmetric diameter. No stenotic lesions are seen. Percent stenosis is calculated using the diameter of the stenotic region over the diameter of the nor mal distal internal carotid artery. CONCLUSION: 1. Occlusion of the left internal carotid artery. 2. No significant stenosis within the right carotid artery. Electronically signed by: Yash Robbins MD Board Certified Radiologist 12/02/2018 11:12 PM EST
--- NOTE | 2018-12-03 08:29 | P.PNNEU ---
Subjective Active Medications: Active Medications Albuterol (Albuterol Neb (Prn)) 1.25 mg NEB Q4HR NEB PRN PRN Reason: sob Apixaban (Eliquis) 2.5 mg PO BID [facility] Last Admin: 12/02/18 22:27 Dose: 2.5 mg Aspirin (Aspirin Chew) 81 mg PO DAILY [facility] Last Admin: 12/02/18 09:01 Dose: 81 mg Atorvastatin Calcium (Lipitor) 40 mg PO HS [facility] Last Admin: 12/02/18 22:28 Dose: 40 mg Lisinopril (Prinivil) 5 mg PO DAILY [facility] Last Admin: 12/02/18 09:02 Dose: Not Given Metoprolol Tartrate (Lopressor) 25 mg PO BID [facility] Last Admin: 12/02/18 22:28 Dose: 25 mg Pantoprazole Sodium (Protonix) 40 mg PO BID [facility] Last Admin: 12/02/18 22:28 Dose: 40 mg Sodium Chloride (Ns Flush) 2 ml IV.FLUSH PRN PRN PRN Reason: FLUSH AFTER USING IV ACCESS Last Admin: 12/01/18 22:26 Dose: 2 ml Allergies/Adverse Reactions: Allergies Allergy/AdvReac Type Severity Reaction Status Date / Time egg AdvReac Intermediate Nausea/Vomi Verified 11/07/18 18:56 ting Poultry AdvReac Intermediate Nausea/Vomi Verified 11/07/18 18:56 ting Physical Exam Vital signs: Vital Signs 12/02/18 12:00 12/02/18 16:00 12/02/18 20:00 Temperature 97.8 F 98.4 F 98.2 F Pulse Rate 68 55 L 59 L Respiratory Rate 18 18 19 Blood Pressure 116/66 126/77 142/84 H Pulse Oximetry 100 97 97 12/03/18 00:00 12/03/18 04:00 Temperature 97.7 F 97.9 F Pulse Rate 61 57 L Respiratory Rate 18 16 Blood Pressure 131/62 135/79 Pulse Oximetry 100 98 Intake & Output 12/02/18 12/03/18 12/03/18 18:59 06:59 18:59 Intake Total 1170 / 1170 Output Total 1450 / 1450 400 / 400 Balance -280 / -280 -400 / -400 Weight 77 kg Intake: Oral 1170 / 1170 Output: Urine 1450 / 1450 400 / 400 Other: # Voids 3 Date of Last Bowel Movement 12/02/18 12/02/18 # Bowel Movements 1 1 Narrative: moving rle much better can pick off bed very well Objective Laboratory Results - last 24 hr 12/01/18 12/02/18 13:18 09:23 Sodium 143 Potassium 4.0 Chloride 111 H Carbon Dioxide 25.3 Anion Gap 7 BUN 22 H Creatinine 1.52 H Estimated GFR 44 L Random Glucose 87 Calcium 8.7 Total Creatine Kinase 90 Triglycerides 113 Cholesterol 104 L LDL Cholesterol, Calc 41 HDL Cholesterol 40.3 Cholesterol/HDL Ratio 2.58 RPR Nonreactive Review/Management - Review/Management Plan: imp ct spine and brain nothing new check us add asa 81 PT standing bp and labs hard to say whats going on 12/02/18 his us shows left ica occluded so could be hemodynamic problem so run his bp 140 /99 bp standing 100/ please lower his bp meds to run bp higher b12 shot 12/03/18 much better i think prob a small cva if eliquis can be 5 bid with renal fxt defer to med team asa 81 bp better but should run 140/90 so may need to dec med more ok dc by me
[2018-12-03] MEDS: Metoprolol Tartrate 25 MG Tablet PO SCH ×2 (09:26→20:28)
--- NOTE | 2018-12-03 12:11 | P.PNIM ---
Subjective Interval history: Patient has no specific complaints today. He has persisting right leg weakness, states that it gets better and worse throughout the day which makes relation to stroke somewhat atypical. Physical Exam Vital signs: Vital Signs 12/02/18 16:00 12/02/18 20:00 12/03/18 00:00 Temperature 98.4 F 98.2 F 97.7 F Pulse Rate 55 L 59 L 61 Respiratory Rate 18 19 18 Blood Pressure 126/77 142/84 H 131/62 Pulse Oximetry 97 97 100 12/03/18 04:00 12/03/18 08:00 Temperature 97.9 F 97.9 F Pulse Rate 57 L 63 Respiratory Rate 16 16 Blood Pressure 135/79 138/89 Pulse Oximetry 98 Intake & Output 12/02/18 12/03/18 12/03/18 18:59 06:59 18:59 Intake Total 1170 / 1170 Output Total 1450 / 1450 400 / 400 Balance -280 / -280 -400 / -400 Weight 77 kg Intake: Oral 1170 / 1170 Output: Urine 1450 / 1450 400 / 400 Other: # Voids 3 Date of Last Bowel Movement 12/02/18 12/02/18 12/02/18 # Bowel Movements 1 1 Narrative: Well-nourished well-developed pleasant male laying in bed in no acute distress Cardiovascular regular rate and rhythm Lungs clear to auscultation bilaterally Abdomen was soft nontender Extremities no cyanosis clubbing or edema Neurological exam alert and oriented x3, cranial nerves II through XII intact, bilateral upper extremities 5 out of 5, right lower extremities improved 4out of 5 motor strength, left lower extremity 5 out of 5 Results Labs CBC & Chem 7: 11/28/18 20:40 12/02/18 09:23 Imaging Imaging: Impressions Neck CTA 12/02/18 00:00 CONCLUSION: 1. Occlusion of the left internal carotid artery. 2. No significant stenosis within the right carotid artery. Assessment and Plan (1) Right leg weakness: Code(s): R29.898 - Other symptoms and signs involving the musculoskeletal system Status: Acute (2) PAD (peripheral artery disease): Code(s): I73.9 - Peripheral vascular disease, unspecified Status: Chronic Plan 78-year-old white male with a history of hypertension, COPD, atrial fibrillation , previous peripheral vascular disease presents to the emergency room with right leg weakness Right lower extremity weakness, inability to ambulate Patient reports a waxing and waning nature to his right leg weakness CT brain showed no acute changes Unable to obtain MRI of the brain due to history of pacemaker, shrapnel Previous MRI of his lumbar spine shows multilevel degenerative disc disease Due to waxing and waning nature of his weakness, will treat for impingement with Solu-Medrol Appreciate neurology consult, they have signed off Continue PT/OT History of peripheral arterial disease Note a CTA runoff 3 months ago showed occlusion of the left superficial femoral artery and moderate stenosis of the right superficial along with some severe atherosclerotic steno-occlusive disease in the infra popliteal region bilaterally with poor single-vessel runoff distally Continue Eliquis and aspirin Appreciate vascular surgery consult Left carotid artery occlusion per neurologist add aspirin and keep blood pressure elevated due to orthostatic BP changes hold lisinopril, decrease metoprolol dose COPD with no acute exacerbation Continue DuoNeb treatment as needed History of atrial fibrillation, currently normal sinus rhythm Continue metoprolol and Eliquis Chronic kidney disease stage III creatinine improved Avoid nephrotoxins Abnormal urinalysis 11/28 urine cultures shows no growth in 48 hours Ceftriaxone stopped, previously had Klebsiella oxytoca UTI DVT prophylaxis Eliquis Discharge planning Patient is declining to go to retirement facility, will give single dose of Solu-Medrol and reevaluate clinically with PT for possible home health Progress Note: Quality VTE Deep Vein Thrombosis/Pulmonary Embolism Present on Admission: No
[2018-12-03] MEDS ORDERED: MethylPREDNISolone Sod Succinate Inj 125 MG/2 ML Vial IV.PUSH ONE (12:30)
--- NOTE | 2018-12-03 13:46 | ECHRPT ---
EXAM DATE: 12/03/2018 12:33 PM EST AGE/SEX: 78 years / Male INDICATIONS: Peripheral vascular disease CLINICAL DATA: This is the patient's initial encounter. Patient reports that signs and symptoms have been present for 3 months and indicates a pain score of 1/10. MEDICAL/SURGICAL HISTORY: . aortic aneurysm, afib, copd, DVT, emphysema lung, hyperlipidemia, h ypertension, pacemaker, peripheral vascular disease, prostate cancer, PTSD, stroke, vertigo . prosta tectomy, colon resection COMPARISON: No prior exams available for comparison. TECHNIQUE: Four-cuff ankle and brachial pressures were obtained. Pulse cuff waveform tracings of the ankles were recorded, and ankle-brachial indices were calculated. PRESSURES (mmHg): Brachial (arm) : RIGHT: 142, LEFT: iv Ankle : RIGHT: 123, LEFT: 88 NOEL : RIGHT: 0.87, LEFT: 0.62 TBI : RIGHT: 0.44, LEFT: 0.30 FINDINGS: Pulsed-Cuff Waveform: Marked amplitude blunting of the left toe waveform. Other: None. CONCLUSION: 1. Abnormal NOEL bilaterally. Ratios suggest mild PAD on the right and moderate on the left. 2. Markedly abnormal TBIs bilaterally with severe amplitude blunting on the left characteristic of b ilateral intrinsic small vessel disease of the feet, left worse than right. Electronically signed by: Gualberto Romano MD Board Certified Radiologist 12/03/2018 1:45 PM EST
--- NOTE | 2018-12-03 16:33 | P.PNVS ---
Subjective Subjective/Hospital Course: Referral received Patient evaluated and examined/full consult dictated Thanks Darlene 12/03/2018 I reviewed laboratory and diagnostic procedures. This gentleman has left internal carotid artery occlusion and possible right internal carotid artery stenosis, which we have to elucidate to make sure that this is okay. The weakness of the right leg is clearly not vascular in nature. This patient on the clinical exam has peripheral vascular disease and probably pretty good inflow judging by the pulses, but then most likely superficial femoral artery occlusion and possibly even popliteal artery occlusion. Runoff is probably via 1-vessel to the foot, because I cannot detect dorsalis pedis and the patient is not overweight that would make it difficult otherwise. The posterior tibial is actually weak on Doppler. Feet are not acutely ischemic. Capillary refill is decreased and delayed, but certainly not critical. The left leg is equally bad as the right leg, so I do not believe that vascular flow, as poor as it is has anything due to the patient's inability to move the leg, most likely the patient has had additional stroke, for he still has small vessel disease of the brain and this is purely a neurologic phenomenon. We will order arterial Doppler studies and based on that, the patient may or may not need CTA with runoff, but my feeling is that patient does have severe peripheral vascular disease, which is not acute and probably superimposed stroke on previous occlusion of the left carotid artery and on previous admissions left internal carotid artery occlusion was described and this is not new, but just because the patient has occlusion on one side does not mean that cannot get further strokes on the same side from small vessel disease and that is probably what is causing this problem. Acute inability to move and extremity could also result from acute compression of the spine from either neoplastic or inflammatory/infectious origin and this may be another thing to look at. Arterial segmental Doppler reveals severe vascular occlusive disease with NOEL right of 0.8 and NOEL left of 0.6 In summary, while patient has quite extensive peripheral vascular disease by clinical exam and confirmed by arterial Doppler studies the inability to move the leg is clearly not related to vascular causes but either a central or peripheral neurologic in origin Patient does not have limb threatening ischemia but in basis of clinical exam and abnormal ABIs CTA with a runoff is reasonable study to be done in the future and patient recovers from the acute CVA Agree with Dr. Rust on management and disposition Patient to follow-up in my office in about a month Objective Vital Signs / I&O: Vital Signs 12/02/18 20:00 12/03/18 00:00 12/03/18 04:00 Temperature 98.2 F 97.7 F 97.9 F Pulse Rate 59 L 61 57 L Respiratory Rate 19 18 16 Blood Pressure 142/84 H 131/62 135/79 Pulse Oximetry 97 100 98 12/03/18 08:00 12/03/18 12:00 Temperature 97.9 F 97.5 F L Pulse Rate 63 69 Respiratory Rate 16 20 Blood Pressure 138/89 143/84 H Pulse Oximetry 98 Intake & Output 12/02/18 12/03/18 12/03/18 18:59 06:59 18:59 Intake Total 1170 / 1170 Output Total 1450 / 1450 400 / 400 Balance -280 / -280 -400 / -400 Weight 77 kg Intake: Oral 1170 / 1170 Output: Urine 1450 / 1450 400 / 400 Other: # Voids 3 Date of Last Bowel Movement 12/02/18 12/02/18 12/02/18 # Bowel Movements 1 1 Impressions Extremity Arterial Study 12/02/18 00:00 CONCLUSION: 1. Abnormal NOEL bilaterally. Ratios suggest mild PAD on the right and moderate on the left. 2. Markedly abnormal TBIs bilaterally with severe amplitude blunting on the left characteristic of bilateral intrinsic small vessel disease of the feet, left worse than right. Neck CTA 12/02/18 00:00 CONCLUSION: 1. Occlusion of the left internal carotid artery. 2. No significant stenosis within the right carotid artery.
[2018-12-04 08:29] LABS: Carbon Dioxide 24.5 meq/L (21.0-32.0); Potassium 4.3 meq/L (3.5-5.1)
--- NOTE | 2018-12-04 09:06 | P.PNNEU ---
Subjective Active Medications: Active Medications Albuterol (Albuterol Neb (Prn)) 1.25 mg NEB Q4HR NEB PRN PRN Reason: sob Apixaban (Eliquis) 2.5 mg PO BID [facility] Last Admin: 12/03/18 20:28 Dose: 2.5 mg Aspirin (Aspirin Chew) 81 mg PO DAILY [facility] Last Admin: 12/03/18 09:26 Dose: 81 mg Atorvastatin Calcium (Lipitor) 40 mg PO HS [facility] Last Admin: 12/03/18 20:28 Dose: 40 mg Lisinopril (Prinivil) 5 mg PO DAILY [facility] Last Admin: 12/02/18 09:02 Dose: Not Given Metoprolol Tartrate (Lopressor) 25 mg PO BID [facility] Last Admin: 12/03/18 20:28 Dose: 25 mg Pantoprazole Sodium (Protonix) 40 mg PO BID [facility] Last Admin: 12/03/18 20:28 Dose: 40 mg Sodium Chloride (Ns Flush) 2 ml IV.FLUSH PRN PRN PRN Reason: FLUSH AFTER USING IV ACCESS Last Admin: 12/01/18 22:26 Dose: 2 ml Allergies/Adverse Reactions: Allergies Allergy/AdvReac Type Severity Reaction Status Date / Time egg AdvReac Intermediate Nausea/Vomi Verified 11/07/18 18:56 ting Poultry AdvReac Intermediate Nausea/Vomi Verified 11/07/18 18:56 ting Physical Exam Vital signs: Vital Signs 12/03/18 12:00 12/03/18 16:00 12/03/18 20:00 Temperature 97.5 F L 98.2 F 97.5 F L Pulse Rate 69 65 79 Respiratory Rate 20 14 20 Blood Pressure 143/84 H 168/91 H 178/108 H Pulse Oximetry 98 95 97 12/04/18 00:00 12/04/18 04:00 Temperature 98.4 F 98.0 F Pulse Rate 52 L 66 Respiratory Rate 20 20 Blood Pressure 146/70 H 127/73 Pulse Oximetry 95 97 Intake & Output 12/03/18 12/04/18 12/04/18 18:59 06:59 18:59 Intake Total 720 / 720 Balance 720 / 720 Intake: Oral 720 / 720 Other: # Voids 4 Date of Last Bowel Movement 12/02/18 12/02/18 # Bowel Movements 1 Narrative: bp better one too high still moving rle well Objective Laboratory Results - last 24 hr 12/04/18 07:07 Sodium 141 Potassium 4.3 Chloride 108 H Carbon Dioxide 24.5 Anion Gap 9 BUN 28 H Creatinine 1.68 H Estimated GFR 40 L Random Glucose 149 H Calcium 9.0 Review/Management - Review/Management Plan: imp ct spine and brain nothing new check us add asa 81 PT standing bp and labs hard to say whats going on 12/02/18 his us shows left ica occluded so could be hemodynamic problem so run his bp 140 /99 bp standing 100/ please lower his bp meds to run bp higher b12 shot 12/03/18 much better i think prob a small cva if eliquis can be 5 bid with renal fxt defer to med team asa 81 bp better but should run 140/90 so may need to dec med more ok dc by ct 12/04/18 stable overnoc watch bp not too high either ok dc and fu office will sign off defer to med team if can be on higher eliquis dose
[2018-12-04] MEDS: Metoprolol Tartrate 25 MG Tablet PO SCH (09:23)
--- NOTE | 2018-12-04 09:24 | P.DCO ---
Physical Therapy Order: Evaluate and treat Home Health Nursing Order: Medical education, Signs/symptoms of disease process and Nursing assessment with vital signs Case Management Consult Case Management Consult-Home Health: Yes I have seen patient Liam López on 12/04/18. My clinical findings support the need for the requested home health care services because: Limited mobility due to disease progression, Deconditioned with increased weakness, Medication compliance is questionable and High risk of falls I certify that my clinical findings support that this patient is homebound because: Unsteady gait/balance, Unsafe to leave home unassisted and Unable to use public transportation
--- NOTE | 2018-12-04 09:27 | P.DS ---
DS: Providers Date of admission: 11/29/18 08:41 Primary care physician: UNKNOWN Consults: 11/29/18 08:47 HUB Only Consult Order Routine Consulting Provider: Wen Carlson 11/29/18 08:51 Consult to Neurology Routine Consulting Provider: Claudio Mike Reason for Consultation: right lower extremity weakness. Notified:: Service Spoke with:: selena Date Notified:: 11/29/18 Time Notified:: 09:00 Ordering Provider: ELDON 11/29/18 09:11 Consult to Vascular Surgery Routine Consulting Provider: Tiffanie Johansen Reason for Consultation: PVD/ right lower extremity weakness/ pain. Notified:: Physician Spoke with:: Date Notified:: 11/29/18 Time Notified:: 09:22 Ordering Provider: ELDON 12/01/18 15:01 Consult to Vascular Surgery Routine Consulting Provider: Tiffanie Johansen Reason for Consultation: Peripheral arterial disease, right lower extremity weakness Notified:: Physician Spoke with:: Dr Johansen Date Notified:: 12/01/18 Time Notified:: 15:57 Ordering Provider: FRED Brief History from admission: patient is a 78 y/o male with history of hypertension, COPD, a-fib, prostate cancer who presented to ER with right leg weakness. he says that he normally walks with a cane. but since five days ago he hasn't been to move his right leg- and couldn't walk even with using his leg. he has some on and off pain to the right lower extremity. he says that he had ' some blood in the urine' nad had some dysuria yesterday. he denies any urinary incontinence,fever. DS: Summary 78-year-old male who presented with right leg weakness, full workup was limited by his inability to get an MRI. CT scan showed no evidence of stroke, but patient had persisting waxing and waning weakness of his right leg and for safety was categorizes a possible stroke. Workup also revealed poor circulation in his bilateral legs but the CTA runoff shows equivalent poor circulation in both the right and left leg, vascular surgery evaluation was unconcerned about any acute ischemic episode causing his symptoms. Due to the waxing and waning nature and his recent CT showing multilevel degenerative disc disease of his lumbar spine he was given a single dose of Solu-Medrol yesterday and has had a drastic improvement in the strength of his leg with reduced numbness. It is very possible that his right leg weakness is related to inflammatory impingement at his lumbar root. I am giving him a steroid taper dose and he already has follow-up arranged with vascular surgery and neurology as an outpatient. Patient has declined to go to rehab and has requested home health PT and nursing instead. Time Spent with Patient Total time spent providing and/or coordinating discharge services: Quality: VTE Deep Vein Thrombosis/Pulmonary Embolism Present on Admission: No Results Labs on day of discharge: Labs from last 24 hours 12/04/18 07:07 Sodium 141 Potassium 4.3 Chloride 108 H Carbon Dioxide 24.5 Anion Gap 9 BUN 28 H Creatinine 1.68 H Estimated GFR 40 L Random Glucose 149 H Calcium 9.0 Impressions ITS Impressions Carotid Doppler Study 12/01/18 00:00 CONCLUSION: Occlusion of the left internal carotid artery. There is mild to moderate plaque seen at the carotid bulb regions. Extremity Arterial Study 12/02/18 00:00 CONCLUSION: 1. Abnormal NOEL bilaterally. Ratios suggest mild PAD on the right and moderate on the left. 2. Markedly abnormal TBIs bilaterally with severe amplitude blunting on the left characteristic of bilateral intrinsic small vessel disease of the feet, left worse than right. Neck CTA 12/02/18 00:00 CONCLUSION: 1. Occlusion of the left internal carotid artery. 2. No significant stenosis within the right carotid artery. Discharge Plan Discharge Disposition Patient Disposition: W/Home Health Service Discharge Condition Condition: Good Discharge Order Discharge Orders: Discharge Order (Routine); Ordered 12/04/18 Ordered By: Pipo Leo Discharge Details Anticipated Discharge Date: 12/04/18 Physicians Team Primary Care Provider: UNKNOWN, Attending Provider: Pipo Leo Other Providers: Claudio Mike ; Sherri Carney,Wen ; Tiffanie Johansen Rxs /Orders / Referrals /Forms Prescriptions: New aspirin 81 mg Tablet,Chewable 81 mg PO DAILY Qty: 30 RF: 0 metoprolol tartrate 25 mg Tablet 25 mg PO BID Qty: 60 RF: 0 Continue atorvastatin 40 mg Tablet 40 mg PO QPM Qty: 30 RF: 0 apixaban [Eliquis] 2.5 mg Tablet 2.5 mg PO BID RF: 0 meclizine 25 mg Tablet 25 mg PO TID RF: 0 lisinopril 5 mg Tablet 5 mg PO DAILY RF: 0 pantoprazole [Protonix] [address] For Susp In Packet 40 mg PO BID RF: 0 Discontinued metoprolol tartrate 50 mg Tablet 50 mg PO BID RF: 0 Ambulatory Orders / Order Sets / DME: [employer] 3-in-1 (1 each) (Routine) Location: Determined by Patient Ordered By: Neptali Liriano Referrals: UNKNOWN, [Primary Care Provider] - See Instructions Discharge Instructions Patient Printed Instructions: Metoprolol (By mouth), Aspirin (By mouth) Status ED Status: Left Department
[2018-12-04 10:35] VITALS: BP 166/81; PULSE 65; RESP 18; TEMP 97.6; O2SAT 94
[2018-12-04 22:25] LABS: Methylmalonic Acid 1.6 nmol/mL (<=0.40)
== END 2018-12-04 17:34 | disposition home health service (06) | DRG 65 ==
LOC: NEPE 12:28 → NEDA 11-29 08:41 → H7ONC 11-29 13:26
PROVIDERS: ADMIT Family Medicine; ATTEND Family Medicine
DX: I69.351 Hemiplegia and hemiparesis following cerebral infarction affecting right dominant side; M54.5 Low back pain; Z85.46 Personal history of malignant neoplasm of prostate; Z86.718 Personal history of other venous thrombosis and embolism; Z79.899 Other long term (current) drug therapy; I70.203 Unspecified atherosclerosis of native arteries of extremities, bilateral legs; I12.9 Hypertensive chronic kidney disease with stage 1 through stage 4 chronic kidney disease, or unspecified chronic kidney disease; Z79.01 Long term (current) use of anticoagulants; N18.3 Chronic kidney disease, stage 3 (moderate); I63.232 Cerebral infarction due to unspecified occlusion or stenosis of left carotid arteries; I48.2 Chronic atrial fibrillation; J44.9 Chronic obstructive pulmonary disease, unspecified; I71.9 Aortic aneurysm of unspecified site, without rupture; M51.36 Other intervertebral disc degeneration, lumbar region; Z90.49 Acquired absence of other specified parts of digestive tract; Z95.0 Presence of cardiac pacemaker; F43.10 Post-traumatic stress disorder, unspecified; Z91.012 Allergy to eggs; I65.21 Occlusion and stenosis of right carotid artery; E78.5 Hyperlipidemia, unspecified; R20.0 Anesthesia of skin; I49.5 Sick sinus syndrome; F17.210 Nicotine dependence, cigarettes, uncomplicated; R31.9 Hematuria, unspecified
CPT/HCPCS: 70498; 80048; 80053; 80061; 81001; 82140; 82550; 82607; 83735; 83918; 83921; 84425; 84443; 84484; 85025; 85651; 85652; 86430; 86431; 86592; 87086; 90761; 90765; 93005; 93880; 93922; 96361; 96365; 97110; 97116; 97162; 97166; 97530; 97535; 99285; J0696; J2930; J3420; J7030; Q9967